=== PATIENT | female | born 1980 | race Caucasian/White ===

== ENCOUNTER 2017-02-22 18:15 | Emergency (ER) | payer OTHER, MEDICAID ==
[2017-02-22 18:20] VITALS: BP 140/105; PULSE 95; RESP 18; TEMP 98.1; O2SAT 96
[2017-02-22] MEDS ORDERED: LORazepam 1 MG TAB PO ONE (18:33)
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
== END 2017-02-22 19:07 | disposition home or self-care (01) ==
LOC: EEVIPCON 18:15
DX: Z76.0 Encounter for issue of repeat prescription (principal); F17.200 Nicotine dependence, unspecified, uncomplicated

== ENCOUNTER 2017-03-01 14:48 | Emergency (ER) | payer OTHER, MEDICAID ==
[2017-03-01 15:28] LABS: % IMMATURE GRANULYOCYTES 0.4 % (0.0-1.1); ABSOLUTE IMMATURE GRANULOCYTES 0.03 10^3/uL (0.00-0.10); ADD DIFF? NO; ADD MORPH? NO; ADD SCAN? NO; ATYPICAL LYMPHOCYTE FLAG 10 (0-99); FRAGMENT RBC FLAG 0 (0-99); HEMATOCRIT 42.6 % (38.0-47.0); HEMOGLOBIN 15.2 g/dL (12.6-16.3); LEFT SHIFT FLG 0 (0-99); LIPEMIA HEMOLYSIS FLAG 90 (0-99); MEAN CELL HEMOGLOBIN 31.2 pg (27.9-34.1); MEAN CELL HEMOGLOBIN CONCENTR. 35.7 g/dL (32.4-36.7); MEAN CELL VOLUME 87.5 fL (81.5-99.8); MEAN PLATELET VOLUME 10.1 fL (8.7-11.7); PLATELET CLUMPS FLAG 0 (0-99); PLATELET COUNT 287 10^3/uL (150-400); RED BLOOD CELL COUNT 4.87 10^6/uL (4.18-5.33); RED CELL DISTRIBUTION WIDTH 13.2 % (11.5-15.2)
[2017-03-01 15:32] LABS: ANION GAP 12 mEq/L (8-16); CALCIUM 9.8 mg/dL (8.5-10.4); CARBON DIOXIDE 24 mEq/l (22-31); CHLORIDE 101 mEq/L (97-110); CREATININE 0.7 mg/dL (0.6-1.0); ETHANOL SERUM < 10 mg/dL (0-10); GLOMERULAR FILTRATION RATE > 60; GLUCOSE 77 mg/dL (70-100); POTASSIUM 4.8 mEq/L (3.5-5.2); SODIUM 137 mEq/L (134-144)
--- NOTE | 2017-03-01 15:54 | EDPHY ---
General - History Smoking Status: Current every day smoker Narrative: CHIEF COMPLAINT: Left groin cyst HISTORY OF PRESENT ILLNESS: Patient is here with complaint of left groin cyst. She says that she developed this while she was in being treated for bipolar episode last week. She says she was discharged home with Depakote but soft taken because she did want to. She says that she has an appointment with her psychiatrist tomorrow to discuss this. She denies any thoughts of suicide or self-harm. She denies any thoughts of homicidal ideation. She feels that her heart as enlarged because these the wrong blood pressure cuff on her at [place]. She also feels that she was kept the wrong fully and too long. She feels that the cyst in the left groin has been there for a week and a half. It is not changed. It is minimally painful. Has not drained. No other associated complaints or modifying factors. REVIEW OF SYSTEMS: Ten systems reviewed and are negative unless otherwise noted in the HPI PERTINENT MEDICAL HISTORY: Bipolar disorder EXAMINATION General Appearance: Alert, no distress, unkempt Head: normocephalic, atraumatic Eyes: Pupils equal and round, no conjunctival pallor or injection. EOMs intact ENT, Mouth: Mucous membranes moist. Uvula midline. Neck: Normal inspection, supple, non-tender Respiratory: Lungs are clear to auscultation Cardiovascular: Regular rate and rhythm. No murmur. Gastrointestinal: Abdomen is soft and nontender Back: non-tender, no bony abnormalities Neurological: A&O, nonfocal, strength symmetric. Normal gait. Skin: Warm and dry, no rash Extremities: Nontender, no pedal edema Psychiatric: Pressured speech. Flight of ideas. Difficulty focusing. No suicide or homicide ideation. She does have delusions of physical abnormalities of her heart, feeling that her heart is enlarged because of blood pressure cup at [place]. DIFFERENTIAL DIAGNOSES: Including but not limited to bipolar andre, manic episode, schizophrenia, delusional disorder, folliculitis, abscess MDM: 3:30 p.m. Patient has history of bipolar and exhibiting manic behavior. She has flight of ideas, she has pressured speech, she is also exhibiting delusions of an enlarged heart caused by her blood pressure cuff. She has difficulty staying focused on task with her conversation. She happens also have a folliculitis in the left inguinal fall without any palpable fluctuance or abscess that needs to be incised and drained. I feel that she is a danger to herself with her andre as she has been off of her Depakote for 10 days. Thus I did complete an M1 form was signed by Dr. Hernández at this time. I have also discussed the case with her psychiatrist Dr. Lopez. I would like patient to be evaluated by s her psychiatrist Dr.ocial sanchez prior to discharge home. Should she be cleared, she has an appointment with her psychiatrist Dr. Lopez tomorrow. 5:00 p.m. I have discussed the case with the hand the patient over to Dr. Hernández. Please see his note for final disposition. She is currently medically cleared and awaiting psychiatric evaluation. SUPERVISION: Patient was evaluated in conjunction with the supervising physician. Please see their note for details. (Scott Smith) Medical Decision Makin: I assumed care of this patient at shift change from ADRI Smith. Patient is awaiting evaluation by [facility]. 2114: [facility] evaluated patient and do not believe she warrants inpatient stay. She will be discharged with diagnosis of folliculitis and recommendation to follow up with out patient mental health resources as provided by [facility]. Return precautions given. (Gigi Hernández) - Objective Vital Signs: Initial Vital Signs Temperature (C) 37.2 C 03/01/17 14:53 Heart Rate 88 03/01/17 14:53 Respiratory Rate 18 03/01/17 14:53 Blood Pressure 129/82 H 03/01/17 14:53 O2 Sat (%) 96 03/01/17 14:53 O2 Delivery Mode Room Air Allergies/Adverse Reactions: No Known Allergies Allergy (Unverified 12/19/14 14:28) Home Medications: Medication Instructions Recorded Ondansetron Odt [Zofran Odt 4 mg 4 mg PO Q4 PRN #6 tab 12/19/14 (RX)] Ativan 02/22/17 Depakote 02/22/17 Divalproex ER [Depakote ER 500 MG 500 mg PO DAILY 4 Days 02/22/17 (*)] Divalproex ER [Depakote ER 500 MG 750 mg PO HS 4 Days 02/22/17 (*)] Eszopiclone [Lunesta] 3 mg PO HS 4 Days 02/22/17 GABAPENTIN 02/22/17 Gabapentin 600 mg PO HS 4 Days 02/22/17 Lunesta 02/22/17 Sulfamethox/Tmp 800/160 mg 1 tab PO BID #14 tab 03/01/17 [Bactrim Ds] Laboratory Results: Laboratory Results 03/01/17 15:00 03/01/17 15:00 03/01/17 03/01/17 03/01/17 15:02 15:02 15:00 WBC RBC Hgb Hct MCV MCH MCHC RDW Plt Count MPV Neut % (Auto) Lymph % (Auto) [place] % (Auto) Eos % (Auto) Baso % (Auto) Nucleat RBC Rel Count Absolute Neuts (auto) Absolute Lymphs (auto) Absolute Monos (auto) Absolute Eos (auto) Absolute Basos (auto) Absolute Nucleated RBC Immature Gran % Immature Gran # Sodium Potassium Chloride Carbon Dioxide Anion Gap BUN Creatinine Estimated GFR Glucose Calcium Beta HCG, Qual NEGATIVE Salicylates < 1.0 mg/dL L mg/dL (2.0-20.0) Urine Opiates Screen NEGATIVE (NEGATIVE) Acetaminophen < 10 mcg/mL L mcg/mL (10.0-30.0) Urine Barbiturates NEGATIVE (NEGATIVE) Ur Phencyclidine Scrn NEGATIVE (NEGATIVE) Ur Amphetamine Screen NEGATIVE (NEGATIVE) U Benzodiazepines Scrn NEGATIVE (NEGATIVE) Urine Cocaine Screen NEGATIVE (NEGATIVE) U Marijuana (THC) Screen NEGATIVE (NEGATIVE) Ethyl Alcohol 03/01/17 03/01/17 15:00 15:00 WBC 8.31 10^3/uL 10^3/uL (3.80-9.50) RBC 4.87 10^6/uL 10^6/uL (4.18-5.33) Hgb 15.2 g/dL g/dL (12.6-16.3) Hct 42.6 % % (38.0-47.0) MCV 87.5 fL fL (81.5-99.8) MCH 31.2 pg pg (27.9-34.1) MCHC 35.7 g/dL g/dL (32.4-36.7) RDW 13.2 % % (11.5-15.2) Plt Count 287 10^3/uL 10^3/uL (150-400) MPV 10.1 fL fL (8.7-11.7) Neut % (Auto) 69.1 % % (39.3-74.2) Lymph % (Auto) 16.7 % % (15.0-45.0) [place] % (Auto) 11.6 % % (4.5-13.0) Eos % (Auto) 1.6 % % (0.6-7.6) Baso % (Auto) 0.6 % % (0.3-1.7) Nucleat RBC Rel Count 0.0 % % (0.0-0.2) Absolute Neuts (auto) 5.75 10^3/uL 10^3/uL (1.70-6.50) Absolute Lymphs (auto) 1.39 10^3/uL 10^3/uL (1.00-3.00) Absolute Monos (auto) 0.96 10^3/uL H 10^3/uL (0.30-0.80) Absolute Eos (auto) 0.13 10^3/uL 10^3/uL (0.03-0.40) Absolute Basos (auto) 0.05 10^3/uL 10^3/uL (0.02-0.10) Absolute Nucleated RBC 0.00 10^3/uL 10^3/uL (0-0.01) Immature Gran % 0.4 % % (0.0-1.1) Immature Gran # 0.03 10^3/uL 10^3/uL (0.00-0.10) Sodium 137 mEq/L mEq/L (134-144) Potassium 4.8 mEq/L mEq/L (3.5-5.2) Chloride 101 mEq/L mEq/L (97-110) Carbon Dioxide 24 mEq/l mEq/l (22-31) Anion Gap 12 mEq/L mEq/L (8-16) BUN 12 mg/dL mg/dL (7-23) Creatinine 0.7 mg/dL mg/dL (0.6-1.0) Estimated GFR > 60 Glucose 77 mg/dL mg/dL (70-100) Calcium 9.8 mg/dL mg/dL (8.5-10.4) Beta HCG, Qual Salicylates Urine Opiates Screen Acetaminophen Urine Barbiturates Ur Phencyclidine Scrn Ur Amphetamine Screen U Benzodiazepines Scrn Urine Cocaine Screen U Marijuana (THC) Screen Ethyl Alcohol < 10 mg/dL mg/dL (0-10) Medications Given: Discontinued Medications Trimethoprim/Sulfamethoxazole (Bactrim Ds) 2 ea PO EDNOW ONE PRN Reason: Protocol Stop: 03/01/17 15:56 Last Admin: 03/01/17 16:29 Dose: 2 ea Departure - Departure Disposition: Home, Routine, Self-Care Clinical Impression: Bipolar I disorder with andre, Folliculitis Condition: Good Instructions: Folliculitis (ED), Bipolar Disorder (ED) Additional Instructions: 1. Use Bactrim as prescribed for folliculitis. Be sure to complete the entire prescription. 2. Follow up with the resources provided by mental health services. 3. Return to the ED for racing thought, thoughts of self harm, other worsening of condition. Referrals: [facility] [Clinic] - As per Instructions Prescriptions: Sulfamethox/Tmp 800/160 mg [Bactrim Ds] 1 tab PO BID #14 tab
[2017-03-01] MEDS ORDERED: SULFAMETHOX/TMP 800/160 MG 1 TAB PO ONE (15:55)
[2017-03-01 16:02] LABS: SALICYLATE < 1.0 mg/dL (2.0-20.0)
[2017-03-01 17:12] VITALS: RESP 16
[2017-03-01 21:28] VITALS: BP 124/80; PULSE 82; TEMP 98.2; O2SAT 96
[2017-03-01] MEDS ORDERED: DIVALPROEX NA 500 MG TAB PO ONE (21:55)
== END 2017-03-01 22:23 | disposition home or self-care (01) ==
LOC: EDUNIT# → EEVIPCON 14:48
DX: L73.9 Follicular disorder, unspecified (principal); F31.9 Bipolar disorder, unspecified; F17.200 Nicotine dependence, unspecified, uncomplicated
CPT/HCPCS: 80305; G0480

== ENCOUNTER 2017-04-19 21:31 | Inpatient (IN) | payer OTHER, MEDICAID ==
--- NOTE | 2017-04-19 21:58 | EDPHY ---
H & P Stated Complaint: Court ordered meds - Personal History Current Tetanus/Diphtheria Vaccine: Yes Current Tetanus Diphtheria and Acellular Pertussis (TDAP): Yes - Medical/Surgical History Hx Asthma: Yes Hx Chronic Respiratory Disease: No Hx Diabetes: No Hx Cardiac Disease: No Hx Renal Disease: No Hx Cirrhosis: No Hx Alcoholism: Yes Hx HIV/AIDS: No Hx Splenectomy or Spleen Trauma: No Other PMH: bipolar - Social History Smoking Status: Current every day smoker Time Seen by Provider: 04/19/17 21:57 Constitutional: Initial Vital Signs Temperature (C) 36.9 C 04/19/17 21:50 Heart Rate 110 H 04/19/17 21:50 Respiratory Rate 16 04/19/17 21:50 Blood Pressure 148/101 H 04/19/17 21:50 O2 Sat (%) 94 04/19/17 21:50 O2 Delivery Mode Room Air Allergies/Adverse Reactions: No Known Allergies Allergy (Unverified 04/19/17 21:41) Home Medications: Medication Instructions Recorded Eszopiclone [Lunesta] 3 mg PO HS 02/22/17 Gabapentin [Neurontin 300 MG (*)] 600 mg PO BID 02/22/17 Gabapentin [Neurontin 300 MG (*)] 600 mg PO DAILY@16 PRN 02/22/17 risperiDONE [Risperdal 1mg (*)] 2 mg PO DAILY 02/22/17 Divalproex ER [Depakote ER 500 MG 250 mg PO DAILY 04/20/17 (*)] Divalproex ER [Depakote ER 500 MG 500 mg PO HS 04/20/17 (*)] [place] Carbonate [[place] 900 mg PO HS 04/20/17 Carbonate Tab 300 mg (*)] Melatonin [Melatonin 3 MG (*)] 9 mg PO HS 04/20/17 Multivitamins [Multivitamin (*)] 1 each PO DAILY 04/20/17 Medical Decision Making ED Course/Re-evaluation: CHIEF COMPLAINT: Psychiatric evaluation HISTORY OF PRESENT ILLNESS: 36-year-old female who is court ordered to take psychiatric medicine. According to her mother who called the police she has been acting crazy and not taking her medicine. The patient denies this and states she is taking her medicine. She denies any drug or alcohol abuse. She denies any trauma. REVIEW OF SYSTEMS: A 10 point review of systems was performed and is negative with the exception of the elements mentioned in the history of present illness. PHYSICAL EXAM: General Appearance: Alert, well hydrated, appropriate, and non-toxic appearing. Head: Atraumatic without scalp tenderness or obvious injury Eyes: Pupils equal, round, reactive to light and accommodation, EOMI, no trauma , no injection. Ears: Clear bilaterally, no perforation, normal landmarks Nose: Atraumatic, no rhinorrhea, clear. Throat: There is no erythema or exudates, no lesions, normal tonsils, mucus membranes moist. Neck: Supple, 2+ carotid upstroke, nontender, no lymphadenopathy. Respiratory: No retractions, no distress, no wheezes, and no accessory muscle use. Lungs are clear to auscultation bilaterally. Cardiovascular: Regular rate and rhythm, no murmurs, rubs, or gallops. Bilateral carotid, radial, dorsalis pedis, and posterior tibial pulses intact. Good capillary refill all extremities. Gastrointestinal: Abdomen is soft, nontender, non-distended, no masses, no rebound, no guarding, no peritoneal signs. Musculoskeletal: Normal active ROM of all extremities, atraumatic. Neurological: Alert, appropriate, and interactive. The patient has normal DTRs and non-focal cranial nerves, motor, sensory, and cerebellar exam. Skin: No rashes, good turgor, no nodules on palpation. Past medical history: Psychiatric history Past surgical history: noncontributory Family history: noncontributory Social history: single, uses tobacco, denies alcohol or drug use, unemployed DIFFERENTIAL DIAGNOSIS: The differential diagnosis for the patient's depression included but was not limited to functional and major depression, situational depression, medication side effect, drugs, and alcohol abuse. MEDICAL DECISION MAKING: Patient is in no acute distress and is hemodynamically stable. We are awaiting psychiatric team's evaluation. Patient has known history of psychiatric disorders and is here for evaluation. (Gigi Hernández) 5:20 a.m.- The patient has been stable during my shift. She has been accepted to [address] [place] [address] Leone. She can go there later this morning. I have completed the EMTALA form. At change of shift at 7:00 a.m., the patient will be signed out to the oncoming provider Dr. Lemus. (Cristina Ibarra) - Data Points Laboratory Results: Laboratory Results 04/19/17 21:50 04/19/17 21:50 Medications Given: Discontinued Medications Divalproex Sodium (Depakote) 500 mg PO EDNOW ONE Stop: 04/20/17 03:40 Last Admin: 04/20/17 03:55 Dose: 500 mg Divalproex Sodium (Depakote) 250 mg PO EDNOW ONE Stop: 04/20/17 09:07 Last Admin: 04/20/17 09:34 Dose: Not Given Divalproex Sodium (Depakote) 250 mg PO EDNOW ONE Stop: 04/20/17 09:31 Last Admin: 04/20/17 10:07 Dose: 250 mg Divalproex Sodium (Depakote) 250 mg PO BID [facility] Stop: 10/17/17 20:59 Last Admin: 04/20/17 22:32 Dose: Not Given Divalproex Sodium (Depakote) 250 mg PO DAILY [facility] Stop: 10/17/17 08:59 Last Admin: 04/21/17 00:41 Dose: Not Given Gabapentin (Neurontin) 600 mg PO EDNOW ONE Stop: 04/20/17 03:40 Last Admin: 04/20/17 03:53 Dose: 600 mg Gabapentin (Neurontin) 600 mg PO EDNOW ONE Stop: 04/20/17 09:08 Last Admin: 04/20/17 09:34 Dose: 600 mg Gabapentin (Neurontin) 600 mg PO EDNOW ONE Stop: 04/20/17 09:31 Last Admin: 04/20/17 09:35 Dose: Not Given Lorazepam (Ativan) 1 mg PO EDNOW ONE Stop: 04/20/17 03:40 Last Admin: 04/20/17 03:53 Dose: 1 mg Departure - Departure Disposition: [facility] IP Clinical Impression: Acute psychosis Condition: Fair
[2017-04-19 22:09] LABS: % IMMATURE GRANULYOCYTES 0.4 % (0.0-1.1); ABSOLUTE IMMATURE GRANULOCYTES 0.03 10^3/uL (0.00-0.10); ADD DIFF? NO; ADD MORPH? NO; ADD SCAN? NO; ATYPICAL LYMPHOCYTE FLAG 0 (0-99); FRAGMENT RBC FLAG 0 (0-99); HEMATOCRIT 43.5 % (38.0-47.0); LEFT SHIFT FLG 0 (0-99); LIPEMIA HEMOLYSIS FLAG 90 (0-99); MEAN CELL HEMOGLOBIN 31.1 pg (27.9-34.1); MEAN CELL HEMOGLOBIN CONCENTR. 34.5 g/dL (32.4-36.7); MEAN CELL VOLUME 90.2 fL (81.5-99.8); MEAN PLATELET VOLUME 9.4 fL (8.7-11.7); PLATELET CLUMPS FLAG 0 (0-99); PLATELET COUNT 276 10^3/uL (150-400); RED BLOOD CELL COUNT 4.82 10^6/uL (4.18-5.33); RED CELL DISTRIBUTION WIDTH 13.3 % (11.5-15.2)
[2017-04-19 22:37] LABS: ANION GAP 9 mEq/L (8-16); CALCIUM 9.5 mg/dL (8.5-10.4); CARBON DIOXIDE 24 mEq/l (22-31); CHLORIDE 101 mEq/L (97-110); CREATININE 0.8 mg/dL (0.6-1.0); GLOMERULAR FILTRATION RATE > 60; GLUCOSE 85 mg/dL (70-100); POTASSIUM 4.6 mEq/L (3.5-5.2); SODIUM 134 mEq/L (134-144)
[2017-04-19 22:39] LABS: ETHANOL SERUM < 10 mg/dL (0-10); SALICYLATE < 1.0 mg/dL (2.0-20.0)
[2017-04-20] MEDS ORDERED: GABAPENTIN 100 MG CAP PO ONE ×2 (03:39→09:07)
[2017-04-20] MEDS ORDERED: LORazepam 1 MG TAB PO ONE (03:39)
[2017-04-20] MEDS ORDERED: DIVALPROEX NA 500 MG TAB PO ONE ×2 (03:39→09:06)
[2017-04-20] MEDS ORDERED: DIVALPROEX NA 250 MG TAB PO SCH ×2 (09:00→21:00)
[2017-04-20] MEDS ORDERED: DIVALPROEX NA 250 MG TAB PO ONE (09:30)
[2017-04-20] MEDS ORDERED: GABAPENTIN 300 MG CAP PO ONE (09:30)
[2017-04-20] MEDS ORDERED: MAG HYDROX/AL HYDROX/SIMETH 30 ML UDCUP PO PRN (14:56)
[2017-04-20] MEDS ORDERED: MAGNESIUM HYDROXIDE 30 ML UDCUP PO PRN (14:57)
[2017-04-20] MEDS: ACETAMINOPHEN 325 MG TAB PO PRN (15:14)
[2017-04-20] MEDS: NICOTINE POLACRILEX 2 MG GUM B PRN ×2 (15:15→17:57)
--- NOTE | 2017-04-20 20:27 | BCON ---
[f rep st] BEHAVIORAL HEALTH CONSULTATION INTERNAL MEDICINE CONSULTATION DATE OF CONSULTATION: 04/20/2017 REFERRING PHYSICIAN: Patria Leone MD REASON FOR CONSULTATION: Medical clearance for inpatient behavioral health stay. HISTORY OF PRESENT ILLNESS: The patient came to the emergency department yesterday after her mother called the police reporting that she had been acting crazy and was not taking her medication. She was on court-ordered medications for bipolar disorder. The patient denied that she had been noncompliant. She was evaluated by the mental health team and admitted for further psychiatric care. She currently is without any acute medical complaints. She reports she is trying to stay awake and drinking coffee in order that she can sleep better tonight and she requested nicotine gum. PAST MEDICAL HISTORY: Bipolar disorder. She denies any other medical history or surgical history. MEDICATIONS: Prior to admission. 1. Divalproex 500 mg at h.s. and 250 mg in the morning. 2. Multivitamin q. day. 3. Melatonin 9 mg p.o. q.h.s. 4. Risperidone 2 mg p.o. q. day. 5. [place] 900 mg p.o. q.h.s. 6. Gabapentin 600 mg p.o. b.i.d. and 600 mg p.o. q.1600 p.r.n. 7. Eszopiclone 3 mg p.o. q.h.s. ALLERGIES: No known allergies. SOCIAL HISTORY: She reports that she lives alone and works as a filing writer. She is a tobacco smoker, and she has a dog. FAMILY HISTORY: Noncontributory. REVIEW OF SYSTEMS: A 10-point Review of Systems was conducted and was negative. PHYSICAL EXAM: VITAL SIGNS: Her blood pressure is 123/75, heart rate is 93, respiratory rate is 12, oxygen saturation is 96% on room air, temperature is 36.8 degrees centigrade. Her weight is 70.3 kg for a body mass index of 22.9. GENERAL: This is a well-nourished, well-developed woman sitting in a chair in the dining room, cooperative and in no acute distress; however, she appears distracted and nervous. HEENT: Extraocular movements are intact. Pupils are equal, round, reactive to light. Mucous membranes are moist. Dentition is in good condition. NECK: Supple. HEART: There is a regular rate and rhythm with no murmurs, rubs, or gallops. LUNGS: Clear to auscultation bilaterally. ABDOMEN: Soft, nontender, nondistended with normoactive bowel sounds. EXTREMITIES: There is no cyanosis, clubbing, or edema. NEUROLOGIC: She is alert and oriented x3. Cranial nerves 2-12 are grossly intact. There is no focal weakness, and sensation is intact to light touch. LABORATORY STUDIES: From the emergency department, CBC was completely within normal limits. Serum chemistry revealed normal renal function and electrolytes. Beta hCG was negative for . Toxicology screen in the serum was negative for salicylates, acetaminophen, or ethyl alcohol. Her valproic acid level was 23, and toxicology screen in the urine was non-negative for benzodiazepines but was otherwise negative for substances of abuse. ASSESSMENT/RECOMMENDATIONS: 1. Bipolar disorder with likely medical noncompliance, pending further evaluation and management per Psychiatry and the mental health team. 2. Tobacco dependence syndrome. Nicotine gum is prescribed for her. She was advised to quit smoking. I see no medical contraindications to the patient's continued stay in the inpatient behavioral health unit or to any psychiatric medications or procedures. Thank you very much for including me in the care of this patient, and please do not hesitate to contact me or the hospitalist service should there be need for further medical evaluation. /[id number]/MODL MTDD
[2017-04-20] MEDS ORDERED: GABAPENTIN 400 MG CAP PO SCH (21:00)
[2017-04-20] MEDS: risperiDONE 2 MG TAB PO SCH (21:11)
[2017-04-20] MEDS: GABAPENTIN 300 MG CAP PO SCH (21:12)
[2017-04-20] MEDS: DIVALPROEX NA 500 MG TAB PO SCH (21:45)
[2017-04-20] MEDS: ZOLPIDEM TARTRATE 5 MG TAB PO PRN (21:46)
[2017-04-21] MEDS: ACETAMINOPHEN 325 MG TAB PO PRN (06:28)
[2017-04-21] MEDS: NICOTINE POLACRILEX 2 MG GUM B PRN ×7 (06:28→20:08)
[2017-04-21] MEDS: DIVALPROEX NA 250 MG TAB PO SCH (08:53)
[2017-04-21] MEDS: GABAPENTIN 300 MG CAP PO SCH ×2 (08:53→20:52)
[2017-04-21] MEDS: risperiDONE 2 MG TAB PO SCH (20:53)
[2017-04-21] MEDS: DIVALPROEX NA 500 MG TAB PO SCH (20:53)
[2017-04-21] MEDS: ZOLPIDEM TARTRATE 5 MG TAB PO PRN (21:52)
[2017-04-22] MEDS: LORazepam 0.5 MG TAB PO PRN (02:49)
--- NOTE | 2017-04-22 06:58 | SOAPPROG ---
SOAP Progress Note Assessment/Plan: Assessment: Plan: 04/22/17 DAY ' UPDATE/EXAM: Objective: Vital Signs Temp Pulse Resp BP Pulse Ox 36.3 C 66 16 119/67 97 04/22/17 06:08 04/22/17 06:08 04/22/17 06:08 04/22/17 06:08 04/22/17 06:08 ICD10 Worksheet Patient Problems: Problems Problem Status Onset Acute psychosis Acute
[2017-04-22] MEDS: NICOTINE POLACRILEX 2 MG GUM B PRN ×5 (07:44→15:08)
[2017-04-22] MEDS: DIVALPROEX NA 250 MG TAB PO SCH (08:39)
[2017-04-22] MEDS: GABAPENTIN 300 MG CAP PO SCH ×2 (08:39→21:19)
--- NOTE | 2017-04-22 11:26 | SOAPPROG ---
SOAP Progress Note Assessment/Plan: Assessment: Plan: 04/22/17 10:15 DAY ' UPDATE/EXAM: Nursing reports pt slept well but remains with manic residual - changing clothing multiple times, tangential, POS; not overtly psychotic/ on direct exam pt is more organized, less pressured, still tangential and distractible, guarded with IOR; softer stance toward mother and would like mother to bring in more clothes; understands that I will be titrating Depakote up on notch today. ASSESSMENT/PLAN: improving b/w residual manic and psychotic elements/ will obtain DC level 04/24 and increase DK dosing to 1250 mg qd, will consider increasing Risperdal tomorrow; no change in management plan Objective: Vital Signs Temp Pulse Resp BP Pulse Ox 36.3 C 66 16 119/67 97 04/22/17 06:08 04/22/17 06:08 04/22/17 06:08 04/22/17 06:08 04/22/17 06:08 ICD10 Worksheet Patient Problems: Problems Problem Status Onset Acute psychosis Acute
[2017-04-22] MEDS: NICOTINE 21 MG/24 HR PATCH TD SCH (15:54)
[2017-04-22] MEDS: DIVALPROEX ER 250 MG TAB PO SCH (21:19)
[2017-04-22] MEDS: risperiDONE 2 MG TAB PO SCH (21:19)
[2017-04-22] MEDS: DIVALPROEX NA 500 MG TAB PO SCH (21:19)
[2017-04-23] MEDS: LORazepam 0.5 MG TAB PO PRN ×3 (02:13→15:11)
--- NOTE | 2017-04-23 07:48 | SOAPPROG ---
SOAP Progress Note Assessment/Plan: Assessment: Plan: 04/22/17 10:15 DAY ' UPDATE/EXAM: Nursing reports pt slept well but remains with manic residual - changing clothing multiple times, tangential, POS; not overtly psychotic/ on direct exam pt is more organized, less pressured, still tangential and distractible, guarded with IOR; softer stance toward mother and would like mother to bring in more clothes; understands that I will be titrating Depakote up onE notch today. ASSESSMENT/PLAN: improving b/w residual manic and psychotic elements/ will obtain DC level 04/24 and increase DK dosing to 1250 mg qd, will consider increasing Risperdal tomorrow; no change in management plan 04/23/17 DAY ' UDATE/PLAN: Objective: Vital Signs Temp Pulse Resp BP Pulse Ox 36.4 C 101 H 15 116/64 96 04/23/17 06:00 04/23/17 06:00 04/23/17 06:00 04/23/17 06:00 04/23/17 06:00 ICD10 Worksheet Patient Problems: Problems Problem Status Onset Acute psychosis Acute
[2017-04-23] MEDS: NICOTINE 21 MG/24 HR PATCH TD SCH (08:21)
[2017-04-23] MEDS: DIVALPROEX NA 250 MG TAB PO SCH (08:22)
[2017-04-23] MEDS: ACETAMINOPHEN 325 MG TAB PO PRN (08:27)
[2017-04-23] MEDS: GABAPENTIN 300 MG CAP PO SCH ×2 (09:41→20:55)
--- NOTE | 2017-04-23 12:06 | SOAPPROG ---
SOAP Progress Note Assessment/Plan: Assessment: Plan: 04/22/17 10:15 DAY ' UPDATE/EXAM: Nursing reports pt slept well but remains with manic residual - changing clothing multiple times, tangential, POS; not overtly psychotic/ on direct exam pt is more organized, less pressured, still tangential and distractible, guarded with IOR; softer stance toward mother and would like mother to bring in more clothes; understands that I will be titrating Depakote up onE notch today. ASSESSMENT/PLAN: improving b/w residual manic and psychotic elements/ will obtain DC level 04/24 and increase DK dosing to 1250 mg qd, will consider increasing Risperdal tomorrow; no change in management plan 04/23/17 10:00 DAY UPDATE/EXAM: Nursing reports pt slept 4 hours continues to evidence prosper/ paranoid elements observed- irritable and at times verbally abusive, POS, multiple clothes changes,, guarded and kelby IOR; on direct exam indeed these elements are present altho pt tolerates session well, accepts med changes as referenced; and will m belle efforts to mobilize out of room more Objective: Vital Signs Temp Pulse Resp BP Pulse Ox 36.4 C 101 H 15 116/64 96 04/23/17 06:00 04/23/17 06:00 04/23/17 06:00 04/23/17 06:00 04/23/17 06:00 ICD10 Worksheet Patient Problems: Problems Problem Status Onset Acute psychosis Acute
--- NOTE | 2017-04-23 12:08 | SOAPPROG ---
SOAP Progress Note Assessment/Plan: Assessment: Plan: 04/22/17 10:15 DAY ' UPDATE/EXAM: Nursing reports pt slept well but remains with manic residual - changing clothing multiple times, tangential, POS; not overtly psychotic/ on direct exam pt is more organized, less pressured, still tangential and distractible, guarded with IOR; softer stance toward mother and would like mother to bring in more clothes; understands that I will be titrating Depakote up onE notch today. ASSESSMENT/PLAN: improving b/w residual manic and psychotic elements/ will obtain DC level 04/24 and increase DK dosing to 1250 mg qd, will consider increasing Risperdal tomorrow; no change in management plan 04/23/17 10:00 DAY ' UPDATE/EXAM: Nursing reports pt slept 4 hours continues to evidence prosper/ paranoid elements observed- irritable and at times verbally abusive, POS, multiple clothes changes,, guarded and kelby IOR; on direct exam indeed these elements are present altho pt tolerates session well, accepts med changes as referenced; and will m belle efforts to mobilize out of room more ASSESSMENT/PLAN: Residual element of manic-psychosis but early phase improvement / increase Risperdal to 4 mg hs, add Trazodone 50 mg hs; management plan d/w Nursing in Rounds . Objective: Vital Signs Temp Pulse Resp BP Pulse Ox 36.4 C 101 H 15 116/64 96 04/23/17 06:00 04/23/17 06:00 04/23/17 06:00 04/23/17 06:00 04/23/17 06:00 ICD10 Worksheet Patient Problems: Problems Problem Status Onset Acute psychosis Acute
[2017-04-23] MEDS: MULTIVITAMINS 1 EACH TAB PO SCH (12:31)
[2017-04-23] MEDS: NICOTINE POLACRILEX 2 MG GUM B PRN ×2 (12:38→17:07)
[2017-04-23] MEDS: ASCORBIC ACID 500 MG TAB PO SCH (12:47)
[2017-04-23] MEDS ORDERED: NICOTINE 21 MG/24 HR PATCH TD ONE (15:15)
[2017-04-23] MEDS: DIVALPROEX ER 250 MG TAB PO SCH (17:55)
[2017-04-23] MEDS: DIVALPROEX NA 500 MG TAB PO SCH (17:56)
[2017-04-23] MEDS: risperiDONE 2 MG TAB PO SCH (20:55)
[2017-04-23] MEDS: DOXEPIN HCL 25 MG CAP PO SCH (20:55)
--- NOTE | 2017-04-24 06:23 | SOAPPROG ---
SOAP Progress Note Assessment/Plan: Assessment: Plan: 04/22/17 10:15 DAY UPDATE/EXAM: Nursing reports pt slept well but remains with manic residual - changing clothing multiple times, tangential, POS; not overtly psychotic/ on direct exam pt is more organized, less pressured, still tangential and distractible, guarded with IOR; softer stance toward mother and would like mother to bring in more clothes; understands that I will be titrating Depakote up one notch today. ASSESSMENT/PLAN: improving b/w residual manic and psychotic elements/ will obtain DC level 04/24 and increase DK dosing to 1250 mg qd, will consider increasing Risperdal tomorrow; no change in management plan 04/23/17 10:00 DAY UPDATE/EXAM: Nursing reports pt slept 4 hours continues to evidence manic/ paranoid elements observed- irritable and at times verbally abusive, POS, multiple clothes changes,, guarded and kelby IOR; on direct exam indeed these elements are present altho pt tolerates session well, accepts med changes as referenced; and will m belle efforts to mobilize out of room more ASSESSMENT/PLAN: Residual element of manic-psychosis but early phase improvement / increase Risperdal to 4 mg hs, add Trazodone 50 mg hs; management plan d/w Nursing in Rounds . 04/24/17 DAY UPDATE/EXAM Objective: Vital Signs Temp Pulse Resp BP Pulse Ox 36.4 C 101 H 15 116/64 96 04/23/17 06:00 04/23/17 06:00 04/23/17 06:00 04/23/17 06:00 04/23/17 06:00 ICD10 Worksheet Patient Problems: Problems Problem Status Onset Acute psychosis Acute
[2017-04-24] MEDS: DIVALPROEX NA 250 MG TAB PO SCH (09:18)
[2017-04-24] MEDS: ASCORBIC ACID 500 MG TAB PO SCH (09:19)
[2017-04-24] MEDS: NICOTINE POLACRILEX 2 MG GUM B PRN ×3 (09:19→12:59)
[2017-04-24] MEDS: GABAPENTIN 300 MG CAP PO SCH ×2 (10:16→19:46)
[2017-04-24] MEDS: NICOTINE 21 MG/24 HR PATCH TD SCH (10:17)
[2017-04-24] MEDS: LORazepam 0.5 MG TAB PO PRN (10:46)
[2017-04-24] MEDS: MULTIVITAMINS 1 EACH TAB PO SCH (10:46)
[2017-04-24] MEDS ORDERED: BACITRACIN OINTMENT 1 PACKET TP ONE (12:57)
--- NOTE | 2017-04-24 14:53 | BAPA ---
[f rep st] ADMISSION PSYCHIATRIC ASSESSMENT PATIENT IDENTIFICATION: The patient presents as a 36-year-old, single, white female who has a chronic symptom and treatment career associated with the diagnosis of Bipolar Disorder-type 1; the patient lives alone, is unemployed and supported on an [facility] stipend. She is followed as a psychiatric outpatient in the community by her private psychiatrist, Dr. Sotelo. She is admitted to [address] [place] [address] on an M1 hold for complaints of an acute manic/psychotic decompensation following clearance in the [facility] ER. HISTORY OF PRESENT ILLNESS: The patient has apparently been unstable and evidencing both affective and psychotic instability for a period of 3+ months. This apparently has been triggered by interactive conflicts with a boyfriend with whom she has recently broken up, as well as in the dyadic relationship with her mother. The patient was hospitalized at [facility] approximately 2 months ago for a similar acute psychotic decompensation as the current one, associated with a manic/psychotic decompensation. It is unclear what the details of her inpatient treatment course were at [facility]. We do know that in the interim between her discharge from [facility] and this admission she rapidly developed syndromal acuity. We do know the [place] Police were called to her apartment on 2 or 3 occasions over a 2 week period prior to admission. Neighbors complained of the patient's disruptive noise. On one occasion the patient is reported as throwing dishes out of her window on March 31 - . In the few days prior to this admission, the patient had insufficient funds to buy her maintenance medications, which included Depakote ER, Neurontin, Risperdal, and a sleeping medication-Lunesta. It is unclear how effectively the patient had been compliant with the medications prior to the prescriptions running out. The patient's mother became increasingly concerned about the syndromal acuity. On the day of admission, she called 911 after observing her daughter as acutely regressed. The patient was brought by police to the [facility] Emergency Room after obtaining an M3 court ordered psychiatric evaluation. In the emergency room the patient was found to be grandiose, paranoid, and having organized grandiose and persecutory delusions. Speech was pressured, thought process was accelerated and extremely tangential. The patient did cooperate with the medical evaluation, which was unrevealing of any active medical problems. Physical exam was unremarkable. Lab screens included a CBC, beta HCG, chemistries, serum Depakote, toxic screen, and blood alcohol level. The patient's serum Depakote level was 23-indicative of underdosing. Toxic screen was positive for benzodiazepines-likely associated with her prescribed Ativan. TLC saw the patient in psychiatric consultation. Mental status findings as referenced above were affirmed. The patient was deemed gravely disabled, unable to manage safely in the community. She was sent on to [address] [place] [address] for admission on the M3 hold. PSYCHIATRIC HISTORY: Details of psychiatric history including syndromal and treatment history will be clarified in intake phase. The patient was unable to give a reliable history secondary to her acutely regressed mental status. We know the patient has had a chronic symptom and treatment career, was a psychiatric inpatient at [facility] in 2001. There are no known suicide attempts in the patient's history. MEDICAL HISTORY: 1. No active medical problems. 2. S/P asthma-in remission. KNOWN ALLERGIES: The patient has no known medication, food, or environmental allergies. MEDICAL REVIEW OF SYSTEMS: Negative. SUBSTANCE ABUSE HISTORY: Intake data suggests the patient has a remote history of alcohol abuse; the patient denies any current substance problems and does acknowledge alcohol was a problem in the remote past. The patient has attended AA in the past. LEGAL HISTORY: The patient denies any current or past legal issues. PERSONAL HISTORY/FAMILY HISTORY: The patient was born into and raised in her biologic family by both parents for a period of time. The parents did divorce during the patient's childhood, and the patient remained living with her mother , as did her younger sister. There is no known history for abuse or trauma during the patient's childhood or adolescence. The patient was a good student, was an exchange student in high school on 2 occasions in [place] and [place]. She also is a college graduate, obtaining a BS degree in molecular biology. We do know mother is educated through a PhD in Clinical Psychology, and has worked as a clinician. The patient's father is also a PhD either in IT or Science, and is also currently employed. A maternal grandmother is reported as having suffered from Schizophrenia. Family pedigree for psychiatric and/or substance problems will be further clarified in intake phase. MENTAL STATUS EXAM: The patient presents as an adult female looking her stated age. She is relatively well kempt, has a stable gait and station, is cooperative and engaging in the admission session. On direct exam, she exhibits pressured speech, grandiose and persecutory thought process, which includes circumscribed delusions of each type. Her thought process is also highly distractible, tangential, and at times the patient appears to be experiencing thought blocking. She relates throughout the initial session in a guarded manner. She does have partial reality testing, can acknowledge she has been off her medications for an unclear period of time prior to admission. She has an awareness that she is in an acutely unstable state and, indicates knowing she needs to be in the hospital to get help. She states she will cooperate with restabilizing her mental status, using medications effectively to help accomplish this. She also understands and states she will cooperate with the diagnostic workup. She refers to her mother repeatedly as a "sociopath " in an angry tone. She also makes loosely associated comments about a recent conflicted relationship with a boyfriend with whom she has broken up. Session focuses on staging mental status, attempting to clarify a symptom and treatment history, attempting to establish an overview of the patient's lifeline history. The patient currently evidences stable impulse control, poor insight, and poor to fair judgment. FORMULATION: The patient presents as a 36-year-old, single, white female, who lives alone, is followed by a private community psychiatrist. She presents with an extensive and chronic symptom and treatment history. Her present illness includes a 3+ month period of instability of a mixed manic/psychotic decompensation. She has been diagnosed in the past as suffering from a Bipolar Disorder-type 1. Triggers for this regression appeared to be a conflicted relationship with a man the patient had known for over a year, but has recently broken up with. She also appears to have a current conflict with mother, who is supportive to the patient who lives in the patient's catchment area. She was hospitalized at [facility] several months ago, discharged only to regress quickly to a manic/psychotic decompensation of crisis proportions. Mother called 911, requested a court-ordered psychiatric evaluation, and the patient was brought by the [place] Police and EMS on M3 hold to the [facility] Emergency Room. She was cleared medically and psychiatrically, and admitted on the M3 hold to [address] [place] [address]. Treatment will focus on restabilization of mental status, clarifying short term and long term care administrator history, including triggers for this regression. With completed diagnostic workup, the patient will be referred back to her private psychiatrist, and additional treatment services as needed when sufficiently stable. INITIAL TREATMENT PLAN: AXIS I: 1. Bipolar Disorder-type 1: Admitted for complaints of acute manic/psychotic crisis. 2. Alcohol Disorder-remote; reportedly inactive for an extended period prior to this admission. AXIS II: Deferred. AXIS III: 1. No active medical problems below. 2. S/P asthma-currently in remission. AXIS IV: Conflicted relationship with boyfriend with recent break-up; exacerbation of dyadic conflict with the patient's mother; off home medications for an unclear period of time prior to admission. AXIS V: Admission GAF is 35. INITIAL TREATMENT PLAN: 1. Nursing: Complete admission assessment; reinforce compliance with cares and medications; orient the patient to the unit milieu and group program, and encourage participation. 2. Psychiatry: Complete admission assessment; provide daily E/M contacts to complete diagnostic workup, provide reintegrative psychotherapeutic contacts, assess and manage psychoactive medication needs, ally the patient with followup participation and definitive discharge plan. 3. Clinical coordinator: Daily contacts with the patient to expand the database; contact with relevant collaterals; link patient to definitive discharge resources at the time of discharge. 4. Admission medical consultation: Pending. 5. Medications: We will resume home medications including Depakote ER, gabapentin, and Risperdal-dosing is as per admission orders; will not utilize Lunesta, which was her home medication, but provide Trazodone h.s.; we will clarify psychopharmacologic needs on direct exam and by discussing case with the patient's community psychiatrist-Dr. Lopez. 6. Prioritized treatment goals: Stabilize mental status sufficient for discharge; complete diagnostic workup to inform discharge planning; link the patient at discharge to discharge resources; ally the patient with followup treatment. /[id number]/MODL MTDD
--- NOTE | 2017-04-24 15:18 | SOAPPROG ---
SOAP Progress Note Assessment/Plan: Assessment: Plan: 04/22/17 10:15 DAY ' UPDATE/EXAM: Nursing reports pt slept well but remains with manic residual - changing clothing multiple times, tangential, POS; not overtly psychotic/ on direct exam pt is more organized, less pressured, still tangential and distractible, guarded with IOR; softer stance toward mother and would like mother to bring in more clothes; understands that I will be titrating Depakote up one notch today. ASSESSMENT/PLAN: improving b/w residual manic and psychotic elements/ will obtain DC level 04/24 and increase DK dosing to 1250 mg qd, will consider increasing Risperdal tomorrow; no change in management plan 04/23/17 10:00 DAY UPDATE/EXAM: Nursing reports pt slept 4 hours continues to evidence manic/ paranoid elements observed- irritable and at times verbally abusive, POS, multiple clothes changes,, guarded and kelby IOR; on direct exam indeed these elements are present altho pt tolerates session well, accepts med changes as referenced; and will m belle efforts to mobilize out of room more ASSESSMENT/PLAN: Residual element of manic-psychosis but early phase improvement / increase Risperdal to 4 mg hs, add Trazodone 50 mg hs; management plan d/w Nursing in Rounds . 04/24/17 10:30 DAY UPDATE/EXAM: Nursing reports last 24 cycle pt observed evidencing paced improvement - more visible in milieu, attending selective groups, c/w meds and cares, lessening manic intensity/ on direct exam pt better organized and able to disclose PIH with more details a/w conflicted relationship with BF from whom she has no broken up; thought process still disjointed and tangential, has some circumscribed PI but is better; pt responsive to reintegrative support. ASSESSMENT/PLAN: sustaining recompensation progress/ no change in meds currently ; management plan d/w Nursing in Rounds; call to community psychiatrist pending Objective: Vital Signs Temp Pulse Resp BP Pulse Ox 36.6 C 62 16 114/60 94 04/24/17 06:00 04/24/17 06:00 04/24/17 06:00 04/24/17 06:00 04/24/17 06:00 ICD10 Worksheet Patient Problems: Problems Problem Status Onset Acute psychosis Acute
[2017-04-24] MEDS: risperiDONE 2 MG TAB PO SCH (19:46)
[2017-04-24] MEDS: DIVALPROEX ER 250 MG TAB PO SCH (19:46)
[2017-04-24] MEDS: DOXEPIN HCL 25 MG CAP PO SCH (19:46)
[2017-04-24] MEDS: DIVALPROEX NA 500 MG TAB PO SCH (19:46)
--- NOTE | 2017-04-25 06:30 | SOAPPROG ---
SOAP Progress Note Assessment/Plan: Assessment: Plan: 04/22/17 10:15 DAY UPDATE/EXAM: Nursing reports pt slept well but remains with manic residual - changing clothing multiple times, tangential, POS; not overtly psychotic/ on direct exam pt is more organized, less pressured, still tangential and distractible, guarded with IOR; softer stance toward mother and would like mother to bring in more clothes; understands that I will be titrating Depakote up one notch today. ASSESSMENT/PLAN: improving b/w residual manic and psychotic elements/ will obtain DC level 04/24 and increase DK dosing to 1250 mg qd, will consider increasing Risperdal tomorrow; no change in management plan 04/23/17 10:00 DAY UPDATE/EXAM: Nursing reports pt slept 4 hours continues to evidence manic/ paranoid elements observed- irritable and at times verbally abusive, POS, multiple clothes changes,, guarded and kelby IOR; on direct exam indeed these elements are present altho pt tolerates session well, accepts med changes as referenced; and will m belle efforts to mobilize out of room more ASSESSMENT/PLAN: Residual element of manic-psychosis but early phase improvement / increase Risperdal to 4 mg hs, add Trazodone 50 mg hs; management plan d/w Nursing in Rounds . 04/24/17 10:30 DAY UPDATE/EXAM: Nursing reports last 24 cycle pt observed evidencing paced improvement - more visible in milieu, attending selective groups, c/w meds and cares, lessening manic intensity/ on direct exam pt better organized and able to disclose PIH with more details a/w conflicted relationship with BF from whom she has no broken up; thought process still disjointed and tangential, has some circumscribed PI but is better; pt responsive to reintegrative support. ASSESSMENT/PLAN: sustaining recompensation progress/ no change in meds currently ; management plan d/w Nursing in Rounds; call to community psychiatrist pending 04/25/17 DAY UPDATE/EXAM: Objective: Vital Signs Temp Pulse Resp BP Pulse Ox 36.6 C 60 12 103/59 L 96 04/25/17 06:00 04/25/17 06:00 04/25/17 06:00 04/25/17 06:00 04/25/17 06:00 ICD10 Worksheet Patient Problems: Problems Problem Status Onset Acute psychosis Acute
[2017-04-25] MEDS: NICOTINE 21 MG/24 HR PATCH TD SCH ×2 (08:22→15:18)
[2017-04-25] MEDS: ASCORBIC ACID 500 MG TAB PO SCH (10:00)
[2017-04-25] MEDS: DIVALPROEX NA 250 MG TAB PO SCH (10:00)
[2017-04-25] MEDS: MULTIVITAMINS 1 EACH TAB PO SCH (10:00)
[2017-04-25] MEDS: NICOTINE POLACRILEX 2 MG GUM B PRN ×3 (10:00→14:36)
[2017-04-25] MEDS: GABAPENTIN 300 MG CAP PO SCH ×2 (10:00→21:04)
[2017-04-25] MEDS: ACETAMINOPHEN 325 MG TAB PO PRN ×2 (10:39→15:19)
[2017-04-25] MEDS ORDERED: DIVALPROEX ER 250 MG TAB PO SCH (13:39)
[2017-04-25] MEDS ORDERED: BACITRACIN OINTMENT 1 PACKET TP ONE (14:11)
[2017-04-25] MEDS: DIVALPROEX ER 500 MG TAB PO SCH (21:04)
[2017-04-25] MEDS: DOXEPIN HCL 25 MG CAP PO SCH (21:04)
[2017-04-25] MEDS: risperiDONE 2 MG TAB PO SCH (21:05)
--- NOTE | 2017-04-26 06:57 | SOAPPROG ---
SOAP Progress Note Assessment/Plan: Assessment: Plan: 04/22/17 10:15 DAY UPDATE/EXAM: Nursing reports pt slept well but remains with manic residual - changing clothing multiple times, tangential, POS; not overtly psychotic/ on direct exam pt is more organized, less pressured, still tangential and distractible, guarded with IOR; softer stance toward mother and would like mother to bring in more clothes; understands that I will be titrating Depakote up one notch today. ASSESSMENT/PLAN: improving b/w residual manic and psychotic elements/ will obtain DC level 04/24 and increase DK dosing to 1250 mg qd, will consider increasing Risperdal tomorrow; no change in management plan 04/23/17 10:00 DAY UPDATE/EXAM: Nursing reports pt slept 4 hours continues to evidence manic/ paranoid elements observed- irritable and at times verbally abusive, POS, multiple clothes changes,, guarded and kelby IOR; on direct exam indeed these elements are present altho pt tolerates session well, accepts med changes as referenced; and will m belle efforts to mobilize out of room more ASSESSMENT/PLAN: Residual element of manic-psychosis but early phase improvement / increase Risperdal to 4 mg hs, add Trazodone 50 mg hs; management plan d/w Nursing in Rounds . 04/24/17 10:30 DAY UPDATE/EXAM: Nursing reports last 24 cycle pt observed evidencing paced improvement - more visible in milieu, attending selective groups, c/w meds and cares, lessening manic intensity/ on direct exam pt better organized and able to disclose PIH with more details a/w conflicted relationship with BF from whom she has no broken up; thought process still disjointed and tangential, has some circumscribed PI but is better; pt responsive to reintegrative support. ASSESSMENT/PLAN: sustaining recompensation progress/ no change in meds currently ; management plan d/w Nursing in Rounds; call to community psychiatrist pending 04/25/17 DAY UPDATE/EXAM: Nursing reports past 24 hours pt has continued to sleep stably, continues with observed manic residual - mild-mod POS, irritability, abrupt and rapid motoric movements, demanding with aggressive speech tone/ seeking out contact with me and in session is teary at times about how her life experience has gone - particularly over past year plus a/t other broken relationships with men; thought process remains disjointed and tangential and language is imprecise with circumscribed MOI; states today she see psychiatrist q 6 mos secondary to having to self-pay which apparently her father ;provides the $ for ; responsive to reintegrative support in session. ASSESSMENT/PLAN: slow-paced improvement with residual manic/psychotic elements/ DK level 50 - will titrate DK dosing up; o/w no meds changes, CP d/w Nursing in Rounds; still haven/t had c/b from community psychiatrist Objective: Vital Signs Temp Pulse Resp BP Pulse Ox 36.6 C 62 14 98/56 L 96 04/26/17 06:00 04/26/17 06:00 04/26/17 06:00 04/26/17 06:00 04/26/17 06:00 ICD10 Worksheet Patient Problems: Problems Problem Status Onset Acute psychosis Acute
[2017-04-26] MEDS: NICOTINE POLACRILEX 2 MG GUM B PRN ×9 (07:40→21:02)
[2017-04-26] MEDS: NICOTINE 21 MG/24 HR PATCH TD SCH (08:32)
[2017-04-26] MEDS: GABAPENTIN 300 MG CAP PO SCH ×2 (08:32→21:31)
[2017-04-26] MEDS: DIVALPROEX ER 500 MG TAB PO SCH ×2 (08:32→21:32)
[2017-04-26] MEDS: ASCORBIC ACID 500 MG TAB PO SCH (08:32)
[2017-04-26] MEDS: MULTIVITAMINS 1 EACH TAB PO SCH (08:32)
[2017-04-26] MEDS: ACETAMINOPHEN 325 MG TAB PO PRN (08:42)
[2017-04-26] MEDS ORDERED: BACITRACIN OINTMENT 1 PACKET TP ONE (08:57)
[2017-04-26] MEDS: LORazepam 0.5 MG TAB PO PRN ×2 (11:13→17:47)
--- NOTE | 2017-04-26 14:26 | SOAPPROG ---
SOAP Progress Note Assessment/Plan: Assessment: Plan: 04/22/17 10:15 DAY UPDATE/EXAM: Nursing reports pt slept well but remains with manic residual - changing clothing multiple times, tangential, POS; not overtly psychotic/ on direct exam pt is more organized, less pressured, still tangential and distractible, guarded with IOR; softer stance toward mother and would like mother to bring in more clothes; understands that I will be titrating Depakote up one notch today. ASSESSMENT/PLAN: improving b/w residual manic and psychotic elements/ will obtain DC level 04/24 and increase DK dosing to 1250 mg qd, will consider increasing Risperdal tomorrow; no change in management plan 04/23/17 10:00 DAY UPDATE/EXAM: Nursing reports pt slept 4 hours continues to evidence manic/ paranoid elements observed- irritable and at times verbally abusive, POS, multiple clothes changes,, guarded and kelby IOR; on direct exam indeed these elements are present altho pt tolerates session well, accepts med changes as referenced; and will m belle efforts to mobilize out of room more ASSESSMENT/PLAN: Residual element of manic-psychosis but early phase improvement / increase Risperdal to 4 mg hs, add Trazodone 50 mg hs; management plan d/w Nursing in Rounds . 04/24/17 10:30 DAY UPDATE/EXAM: Nursing reports last 24 cycle pt observed evidencing paced improvement - more visible in milieu, attending selective groups, c/w meds and cares, lessening manic intensity/ on direct exam pt better organized and able to disclose PIH with more details a/w conflicted relationship with BF from whom she has no broken up; thought process still disjointed and tangential, has some circumscribed PI but is better; pt responsive to reintegrative support. ASSESSMENT/PLAN: sustaining recompensation progress/ no change in meds currently ; management plan d/w Nursing in Rounds; call to community psychiatrist pending 04/25/17 DAY UPDATE/EXAM: Nursing reports past 24 hours pt has continued to sleep stably, continues with observed manic residual - mild-mod POS, irritability, abrupt and rapid motoric movements, demanding with aggressive speech tone/ seeking out contact with me and in session is teary at times about how her life experience has gone - particularly over past year plus a/t other broken relationships with men; thought process remains disjointed and tangential and language is imprecise with circumscribed MOI; states today she see psychiatrist q 6 mos secondary to having to self-pay which apparently her father ;provides the $ for ; responsive to reintegrative support in session. ASSESSMENT/PLAN: slow-paced improvement with residual manic/psychotic elements/ DK level 50 - will titrate DK dosing up; o/w no meds changes, CP d/w Nursing in Rounds; still haven/t had c/b from community psychiatrist 04/26/17 14:19 DAY ' UPDATE/EXAM: Nursing reports pt responding better to limits with here repetitive demands, using CP which schedules frequency of contacts and organize her thoughts by making lists/ on exam still evidences the manic elements as referenced in previous note; reinforced her positive compliance with meds and the need to reassess in AM ? of titrating dosing higher which she is accepting of ASSESSMENT/PLAN: paced recompensation continues/ reasses updosing meds in AM; destimulating and organizing CP interventions reviewed with Nursing in Rounds Objective: Vital Signs Temp Pulse Resp BP Pulse Ox 36.6 C 62 14 98/56 L 96 04/26/17 06:00 04/26/17 06:00 04/26/17 06:00 04/26/17 06:00 04/26/17 06:00 ICD10 Worksheet Patient Problems: Problems Problem Status Onset Acute psychosis Acute
[2017-04-26] MEDS: DOXEPIN HCL 25 MG CAP PO SCH (21:32)
[2017-04-26] MEDS: risperiDONE 2 MG TAB PO SCH (21:32)
[2017-04-27] MEDS: NICOTINE POLACRILEX 2 MG GUM B PRN ×7 (06:22→20:51)
[2017-04-27] MEDS: NICOTINE 21 MG/24 HR PATCH TD SCH (07:48)
[2017-04-27] MEDS: ACETAMINOPHEN 325 MG TAB PO PRN (07:51)
[2017-04-27] MEDS: ASCORBIC ACID 500 MG TAB PO SCH (08:23)
[2017-04-27] MEDS: DIVALPROEX ER 500 MG TAB PO SCH ×2 (08:23→21:30)
[2017-04-27] MEDS: GABAPENTIN 300 MG CAP PO SCH ×2 (08:23→21:30)
[2017-04-27] MEDS: MULTIVITAMINS 1 EACH TAB PO SCH (09:08)
[2017-04-27] MEDS ORDERED: BACITRACIN OINTMENT 1 PACKET TP ONE (09:56)
[2017-04-27] MEDS: LORazepam 0.5 MG TAB PO PRN (10:23)
[2017-04-27] MEDS: DOXEPIN HCL 25 MG CAP PO SCH (21:30)
[2017-04-27] MEDS: risperiDONE 2 MG TAB PO SCH (21:30)
--- NOTE | 2017-04-28 08:02 | SOAPPROG ---
SOAP Progress Note Assessment/Plan: Assessment: Plan: 04/22/17 10:15 DAY UPDATE/EXAM: Nursing reports pt slept well but remains with manic residual - changing clothing multiple times, tangential, POS; not overtly psychotic/ on direct exam pt is more organized, less pressured, still tangential and distractible, guarded with IOR; softer stance toward mother and would like mother to bring in more clothes; understands that I will be titrating Depakote up one notch today. ASSESSMENT/PLAN: improving b/w residual manic and psychotic elements/ will obtain DC level 04/24 and increase DK dosing to 1250 mg qd, will consider increasing Risperdal tomorrow; no change in management plan 04/23/17 10:00 DAY UPDATE/EXAM: Nursing reports pt slept 4 hours continues to evidence manic/ paranoid elements observed- irritable and at times verbally abusive, POS, multiple clothes changes,, guarded and kelby IOR; on direct exam indeed these elements are present altho pt tolerates session well, accepts med changes as referenced; and will m belle efforts to mobilize out of room more ASSESSMENT/PLAN: Residual element of manic-psychosis but early phase improvement / increase Risperdal to 4 mg hs, add Trazodone 50 mg hs; management plan d/w Nursing in Rounds . 04/24/17 10:30 DAY UPDATE/EXAM: Nursing reports last 24 cycle pt observed evidencing paced improvement - more visible in milieu, attending selective groups, c/w meds and cares, lessening manic intensity/ on direct exam pt better organized and able to disclose PIH with more details a/w conflicted relationship with BF from whom she has no broken up; thought process still disjointed and tangential, has some circumscribed PI but is better; pt responsive to reintegrative support. ASSESSMENT/PLAN: sustaining recompensation progress/ no change in meds currently ; management plan d/w Nursing in Rounds; call to community psychiatrist pending 04/25/17 DAY UPDATE/EXAM: Nursing reports past 24 hours pt has continued to sleep stably, continues with observed manic residual - mild-mod POS, irritability, abrupt and rapid motoric movements, demanding with aggressive speech tone/ seeking out contact with me and in session is teary at times about how her life experience has gone - particularly over past year plus a/t other broken relationships with men; thought process remains disjointed and tangential and language is imprecise with circumscribed MOI; states today she see psychiatrist q 6 mos secondary to having to self-pay which apparently her father ;provides the $ for ; responsive to reintegrative support in session. ASSESSMENT/PLAN: slow-paced improvement with residual manic/psychotic elements/ DK level 50 - will titrate DK dosing up; o/w no meds changes, CP d/w Nursing in Rounds; still haven/t had c/b from community psychiatrist 04/26/17 14:19 DAY UPDATE/EXAM: Nursing reports pt responding better to limits with here repetitive demands, using CP which schedules frequency of contacts and organize her thoughts by making lists/ on exam still evidences the manic elements as referenced in previous note; reinforced her positive compliance with meds and the need to reassess in AM ? of titrating dosing higher which she is accepting of ASSESSMENT/PLAN: paced recompensation continues/ reassess updosing meds in AM; de-stimulating and organizing CP interventions reviewed with Nursing in Rounds 04/27/17 11:00 DAY UPDATE/EXAM: Nursing reports pt sleeping better but evidences residual manic residual; CP focus on limit-setting and behavioral shaping continued/ on direct exam shows some improvement in thought organization but speech tone and pressure still elevated and distractibility/tangentiality presists; CP goals reinforced and meds reviewed. INTAKE/ DR MILLS - pt's community psychiatrist: affirms pt's regression over last 4-6 months with this being the third inpt intervention in 2 months; pt's compliance with meds has been poor thru the regressed period; history of stabilization on [employer] and Risperdal for extended period; has not been on depot antipsychotics in the past other than depot Invega X 2 in inpt stay in January; triggers for regression not provided by Dr. Mills. ASSESSMENT/PLAN: residual and slowly resolving manic elements/ will obtain serum DK 04/30; reassess status for ? DC timetable04/30, update with Dr. Ga for review and DC planning input. Objective: Vital Signs Temp Pulse Resp BP Pulse Ox 36.6 C 81 14 107/57 L 96 04/27/17 06:00 04/27/17 06:00 04/27/17 06:00 04/27/17 06:00 04/27/17 06:00 ICD10 Worksheet Patient Problems: Problems Problem Status Onset Acute psychosis Acute
[2017-04-28] MEDS: DIVALPROEX ER 500 MG TAB PO SCH ×3 (08:41→21:48)
[2017-04-28] MEDS: MULTIVITAMINS 1 EACH TAB PO SCH (08:42)
[2017-04-28] MEDS: GABAPENTIN 300 MG CAP PO SCH ×3 (08:42→21:48)
[2017-04-28] MEDS: NICOTINE POLACRILEX 2 MG GUM B PRN ×5 (08:42→18:05)
[2017-04-28] MEDS: ASCORBIC ACID 500 MG TAB PO SCH (08:42)
[2017-04-28] MEDS: NICOTINE 21 MG/24 HR PATCH TD SCH (08:44)
--- NOTE | 2017-04-28 19:40 | SOAPPROG ---
SOAP Progress Note Assessment/Plan: Assessment: 36yo F with BMD manic, acute exac, several inpt admissions recently due to noncompliance, brought in by BPD after mother called for court ordered draft roller picker since pt on court ordered meds but n/c again 04/28/17 14:09 pt irritable, demanding requests only AG privs of MD for fresh air, otherwise no reason for further conversation. states "I'm ready to leave", states sleeping "fine" and meds are "okay". dismissive of any further questions. Later approached MD in crespo in somewhat hostile manner, standing very close and chewing nicotine gum in loud manner, "I have dehydration, what are you going to prescribe? What are you going to do about it? you're the doctor...I need electrolytes". Noted to approach a peer in dayroom also in hostile manner, standing towering over peer who was sitting down after turning on TV, "No, No, I was sitting here FIRST and I don't want the TV on!" Staff intervened to redirect pt verbally, who then responded. Continues manic with extreme irritability, sarcasm, intimidating, no overt psychosis PLAN: continue Depakote 500/1000, Risperdal 4mg and other meds. consider checking for compliance with mouth checks, or change to liquid/M-tab formulation Objective: Vital Signs Temp Pulse Resp BP Pulse Ox 36.4 C 108 H 17 150/74 H 94 04/28/17 08:40 04/28/17 08:40 04/28/17 08:40 04/28/17 08:40 04/28/17 08:40 - Time Spent With Patient Time Spent With Patient: 15min - Pending Discharge Pending Discharge Within 24 Hours: No Pending Discharge Within 48 Hours: No ICD10 Worksheet Patient Problems: Problems Problem Status Onset Acute psychosis Acute
[2017-04-28] MEDS: risperiDONE 2 MG TAB PO SCH ×2 (21:47→21:48)
[2017-04-28] MEDS: DOXEPIN HCL 25 MG CAP PO SCH (21:48)
[2017-04-28] MEDS: ZOLPIDEM TARTRATE 5 MG TAB PO PRN (21:50)
[2017-04-29] MEDS: NICOTINE 21 MG/24 HR PATCH TD SCH (08:05)
[2017-04-29] MEDS: ASCORBIC ACID 500 MG TAB PO SCH (08:05)
[2017-04-29] MEDS: MULTIVITAMINS 1 EACH TAB PO SCH (08:06)
[2017-04-29] MEDS: DIVALPROEX ER 500 MG TAB PO SCH ×2 (08:06→21:16)
[2017-04-29] MEDS: GABAPENTIN 300 MG CAP PO SCH ×2 (08:07→21:16)
[2017-04-29] MEDS: NICOTINE POLACRILEX 2 MG GUM B PRN ×6 (08:10→20:05)
[2017-04-29] MEDS: LORazepam 0.5 MG TAB PO PRN (19:33)
[2017-04-29] MEDS: ACETAMINOPHEN 325 MG TAB PO PRN (19:34)
[2017-04-29] MEDS: ZOLPIDEM TARTRATE 5 MG TAB PO PRN (21:15)
[2017-04-29] MEDS: risperiDONE 2 MG TAB PO SCH (21:17)
[2017-04-29] MEDS: DOXEPIN HCL 25 MG CAP PO SCH (21:17)
--- NOTE | 2017-04-30 04:29 | SOAPPROG ---
SOAP Progress Note Assessment/Plan: Assessment: 36yo F with BMD manic, acute exac, several inpt admissions recently due to noncompliance, brought in by BPD after mother called for court ordered potato picker since pt on court ordered meds but n/c again 04/28/17 14:09 pt irritable, demanding requests only AG privs of MD for fresh air, otherwise no reason for further conversation. states "I'm ready to leave", states sleeping "fine" and meds are "okay". dismissive of any further questions. Later approached MD in crespo in somewhat hostile manner, standing very close and chewing nicotine gum in loud manner, "I have dehydration, what are you going to prescribe? What are you going to do about it? you're the doctor...I need electrolytes". Noted to approach a peer in dayroom also in hostile manner, standing towering over peer who was sitting down after turning on TV, "No, No, I was sitting here FIRST and I don't want the TV on!" Staff intervened to redirect pt verbally, who then responded. Continues manic with extreme irritability, sarcasm, intimidating, no overt psychosis PLAN: continue Depakote 500/1000, Risperdal 4mg and other meds. consider checking for compliance with mouth checks, or change to liquid/M-tab formulation 04/29/17 14:21 slept 7.5hr. staff reports pt continues provocative with peers and staff, and also seems suspicious and paranoid at times. pt reports "I dont like Gabapentin anymore, also Depakote is getting boring and dulling. I want the green Depakote pills like I have at home,..the ones here have a dye in them that gave me a small rash Continues manic, no overt psychosis, no insight and with questionable commitment to medication compliance PLAN: continue Depakote 500/1000, Risperdal 4mg and other meds. consider checking for compliance with mouth checks, or change to liquid/M-tab formulation VPA level this week Subjective: 15min Objective: Vital Signs Temp Pulse Resp BP Pulse Ox 36.8 C 86 16 119/62 94 04/29/17 08:15 04/29/17 08:15 04/29/17 08:15 04/29/17 08:15 04/29/17 08:15 - Pending Discharge Pending Discharge Within 24 Hours: No Pending Discharge Within 48 Hours: No ICD10 Worksheet Patient Problems: Problems Problem Status Onset Acute psychosis Acute
--- NOTE | 2017-04-30 11:59 | SOAPPROG ---
SOAP Progress Note Assessment/Plan: Assessment: Plan: 04/22/17 10:15 DAY UPDATE/EXAM: Nursing reports pt slept well but remains with manic residual - changing clothing multiple times, tangential, POS; not overtly psychotic/ on direct exam pt is more organized, less pressured, still tangential and distractible, guarded with IOR; softer stance toward mother and would like mother to bring in more clothes; understands that I will be titrating Depakote up one notch today. ASSESSMENT/PLAN: improving b/w residual manic and psychotic elements/ will obtain DC level 04/24 and increase DK dosing to 1250 mg qd, will consider increasing Risperdal tomorrow; no change in management plan 04/23/17 10:00 DAY UPDATE/EXAM: Nursing reports pt slept 4 hours continues to evidence manic/ paranoid elements observed- irritable and at times verbally abusive, POS, multiple clothes changes,, guarded and kelby IOR; on direct exam indeed these elements are present altho pt tolerates session well, accepts med changes as referenced; and will m belle efforts to mobilize out of room more ASSESSMENT/PLAN: Residual element of manic-psychosis but early phase improvement / increase Risperdal to 4 mg hs, add Trazodone 50 mg hs; management plan d/w Nursing in Rounds . 04/24/17 10:30 DAY UPDATE/EXAM: Nursing reports last 24 cycle pt observed evidencing paced improvement - more visible in milieu, attending selective groups, c/w meds and cares, lessening manic intensity/ on direct exam pt better organized and able to disclose PIH with more details a/w conflicted relationship with BF from whom she has no broken up; thought process still disjointed and tangential, has some circumscribed PI but is better; pt responsive to reintegrative support. ASSESSMENT/PLAN: sustaining recompensation progress/ no change in meds currently ; management plan d/w Nursing in Rounds; call to community psychiatrist pending 04/25/17 DAY UPDATE/EXAM: Nursing reports past 24 hours pt has continued to sleep stably, continues with observed manic residual - mild-mod POS, irritability, abrupt and rapid motoric movements, demanding with aggressive speech tone/ seeking out contact with me and in session is teary at times about how her life experience has gone - particularly over past year plus a/t other broken relationships with men; thought process remains disjointed and tangential and language is imprecise with circumscribed MOI; states today she see psychiatrist q 6 mos secondary to having to self-pay which apparently her father ;provides the $ for ; responsive to reintegrative support in session. ASSESSMENT/PLAN: slow-paced improvement with residual manic/psychotic elements/ DK level 50 - will titrate DK dosing up; o/w no meds changes, CP d/w Nursing in Rounds; still haven/t had c/b from community psychiatrist 04/26/17 14:19 DAY UPDATE/EXAM: Nursing reports pt responding better to limits with here repetitive demands, using CP which schedules frequency of contacts and organize her thoughts by making lists/ on exam still evidences the manic elements as referenced in previous note; reinforced her positive compliance with meds and the need to reassess in AM ? of titrating dosing higher which she is accepting of ASSESSMENT/PLAN: paced recompensation continues/ reassess updosing meds in AM; de-stimulating and organizing CP interventions reviewed with Nursing in Rounds 04/27/17 11:00 DAY UPDATE/EXAM: Nursing reports pt sleeping better but evidences residual manic residual; CP focus on limit-setting and behavioral shaping continued/ on direct exam shows some improvement in thought organization but speech tone and pressure still elevated and distractibility/tangentiality presists; CP goals reinforced and meds reviewed. INTAKE/ DR LOPEZ - pt's community psychiatrist: affirms pt's regression over last 4-6 months with this being the third inpt intervention in 2 months; pt's compliance with meds has been poor thru the regressed period; history of stabilization on [place] and Risperdal for extended period; has not been on depot antipsychotics in the past other than depot Invega X 2 in inpt stay in January; triggers for regression not provided by Dr. Lopez. ASSESSMENT/PLAN: residual and slowly resolving manic elements/ will obtain serum DK 04/30; reassess status for ? DC timetable04/30, update with Dr. Ga for review and DC planning input. 04/30/17 DAY UPDATE/EXAM: Objective: Vital Signs Temp Pulse Resp BP Pulse Ox 36.8 C 86 16 119/62 94 04/29/17 08:15 04/29/17 08:15 04/29/17 08:15 04/29/17 08:15 04/29/17 08:15 ICD10 Worksheet Patient Problems: Problems Problem Status Onset Acute psychosis Acute
[2017-04-30] MEDS: ASCORBIC ACID 500 MG TAB PO SCH (13:01)
[2017-04-30] MEDS: DIVALPROEX ER 500 MG TAB PO SCH ×2 (13:01→18:12)
[2017-04-30] MEDS: NICOTINE 21 MG/24 HR PATCH TD SCH (13:02)
[2017-04-30] MEDS: MULTIVITAMINS 1 EACH TAB PO SCH (13:02)
[2017-04-30] MEDS: GABAPENTIN 300 MG CAP PO SCH ×3 (13:02→20:44)
[2017-04-30] MEDS: NICOTINE POLACRILEX 2 MG GUM B PRN ×2 (13:06→15:59)
[2017-04-30] MEDS: LORazepam 0.5 MG TAB PO PRN (13:09)
[2017-04-30] MEDS: DOXEPIN HCL 25 MG CAP PO SCH (20:44)
[2017-04-30] MEDS: risperiDONE 2 MG TAB PO SCH (20:44)
--- NOTE | 2017-05-01 07:45 | SOAPPROG ---
SOAP Progress Note Assessment/Plan: Assessment: Plan: 04/22/17 10:15 DAY UPDATE/EXAM: Nursing reports pt slept well but remains with manic residual - changing clothing multiple times, tangential, POS; not overtly psychotic/ on direct exam pt is more organized, less pressured, still tangential and distractible, guarded with IOR; softer stance toward mother and would like mother to bring in more clothes; understands that I will be titrating Depakote up one notch today. ASSESSMENT/PLAN: improving b/w residual manic and psychotic elements/ will obtain DC level 04/24 and increase DK dosing to 1250 mg qd, will consider increasing Risperdal tomorrow; no change in management plan 04/23/17 10:00 DAY UPDATE/EXAM: Nursing reports pt slept 4 hours continues to evidence manic/ paranoid elements observed- irritable and at times verbally abusive, POS, multiple clothes changes,, guarded and kelby IOR; on direct exam indeed these elements are present altho pt tolerates session well, accepts med changes as referenced; and will m belle efforts to mobilize out of room more ASSESSMENT/PLAN: Residual element of manic-psychosis but early phase improvement / increase Risperdal to 4 mg hs, add Trazodone 50 mg hs; management plan d/w Nursing in Rounds . 04/24/17 10:30 DAY UPDATE/EXAM: Nursing reports last 24 cycle pt observed evidencing paced improvement - more visible in milieu, attending selective groups, c/w meds and cares, lessening manic intensity/ on direct exam pt better organized and able to disclose PIH with more details a/w conflicted relationship with BF from whom she has no broken up; thought process still disjointed and tangential, has some circumscribed PI but is better; pt responsive to reintegrative support. ASSESSMENT/PLAN: sustaining recompensation progress/ no change in meds currently ; management plan d/w Nursing in Rounds; call to community psychiatrist pending 04/25/17 DAY UPDATE/EXAM: Nursing reports past 24 hours pt has continued to sleep stably, continues with observed manic residual - mild-mod POS, irritability, abrupt and rapid motoric movements, demanding with aggressive speech tone/ seeking out contact with me and in session is teary at times about how her life experience has gone - particularly over past year plus a/t other broken relationships with men; thought process remains disjointed and tangential and language is imprecise with circumscribed MOI; states today she see psychiatrist q 6 mos secondary to having to self-pay which apparently her father ;provides the $ for ; responsive to reintegrative support in session. ASSESSMENT/PLAN: slow-paced improvement with residual manic/psychotic elements/ DK level 50 - will titrate DK dosing up; o/w no meds changes, CP d/w Nursing in Rounds; still haven/t had c/b from community psychiatrist 04/26/17 14:19 DAY UPDATE/EXAM: Nursing reports pt responding better to limits with here repetitive demands, using CP which schedules frequency of contacts and organize her thoughts by making lists/ on exam still evidences the manic elements as referenced in previous note; reinforced her positive compliance with meds and the need to reassess in AM ? of titrating dosing higher which she is accepting of ASSESSMENT/PLAN: paced recompensation continues/ reassess updosing meds in AM; de-stimulating and organizing CP interventions reviewed with Nursing in Rounds 04/27/17 11:00 DAY UPDATE/EXAM: Nursing reports pt sleeping better but evidences residual manic residual; CP focus on limit-setting and behavioral shaping continued/ on direct exam shows some improvement in thought organization but speech tone and pressure still elevated and distractibility/tangentiality presists; CP goals reinforced and meds reviewed. INTAKE/ DR LOPEZ - pt's community psychiatrist affirms pt's regression over last 4-6 months with this being the third inpt intervention in 2 months; pt's compliance with meds has been poor thru the regressed period; history of stabilization on [place] and Risperdal for extended period; has not been on depot antipsychotics in the past other than depot Invega X 2 in inpt stay in January; triggers for regression not provided by Dr. Lopez. ASSESSMENT/PLAN: residual and slowly resolving manic elements/ will obtain serum DK 04/30; reassess status for ? DC timetable04/30, update with Dr. Ga for review and DC planning input. 04/30/17 14:00 DAY UPDATE/EXAM: Nursing reeports pt continues to sleep well, c.w cares and meds; observable progress continues at a gradual pace with pt continuing to need limit -setting and redirection at times for demands and intrusiveness; is attending more groups and participating but requires same limits from group leaders as from Nursing in the milieu/ MOC reports that pt in telephone contact earlier today evidenced pressured speech and abrupt ending of conversation c/w residual andre/ on direct exam remains elevated and interuptive, able to be redirected; discussed need for titrating meds further after checking serum dK drawn this AM ; pt accepts extension of inpt course for optimal restabilization. ASSESSMENT/PLAN: residual instability c/w manic elements/ DK pending; CP d/w Nursing in rounds and essentially unchanged Objective: Vital Signs Temp Pulse Resp BP Pulse Ox 36.6 C 89 16 131/58 H 96 05/01/17 07:02 05/01/17 07:02 05/01/17 07:02 05/01/17 07:02 05/01/17 07:02 ICD10 Worksheet Patient Problems: Problems Problem Status Onset Acute psychosis Acute
[2017-05-01] MEDS: NICOTINE 21 MG/24 HR PATCH TD SCH (08:49)
[2017-05-01] MEDS: GABAPENTIN 300 MG CAP PO SCH ×2 (08:50→20:44)
[2017-05-01] MEDS: DIVALPROEX ER 500 MG TAB PO SCH ×2 (08:50→20:45)
[2017-05-01] MEDS: MULTIVITAMINS 1 EACH TAB PO SCH (08:50)
[2017-05-01] MEDS: ASCORBIC ACID 500 MG TAB PO SCH (08:50)
[2017-05-01] MEDS: NICOTINE POLACRILEX 2 MG GUM B PRN ×7 (08:54→17:58)
[2017-05-01] MEDS: LORazepam 0.5 MG TAB PO PRN ×2 (09:30→17:57)
[2017-05-01] MEDS ORDERED: BACITRACIN OINTMENT 1 PACKET TP ONE (10:52)
[2017-05-01] MEDS: ACETAMINOPHEN 325 MG TAB PO PRN (10:53)
--- NOTE | 2017-05-01 13:20 | SOAPPROG ---
SOAP Progress Note Assessment/Plan: Assessment: Plan: 04/22/17 10:15 DAY UPDATE/EXAM: Nursing reports pt slept well but remains with manic residual - changing clothing multiple times, tangential, POS; not overtly psychotic/ on direct exam pt is more organized, less pressured, still tangential and distractible, guarded with IOR; softer stance toward mother and would like mother to bring in more clothes; understands that I will be titrating Depakote up one notch today. ASSESSMENT/PLAN: improving b/w residual manic and psychotic elements/ will obtain DC level 04/24 and increase DK dosing to 1250 mg qd, will consider increasing Risperdal tomorrow; no change in management plan 04/23/17 10:00 DAY UPDATE/EXAM: Nursing reports pt slept 4 hours continues to evidence manic/ paranoid elements observed- irritable and at times verbally abusive, POS, multiple clothes changes,, guarded and kelby IOR; on direct exam indeed these elements are present altho pt tolerates session well, accepts med changes as referenced; and will m belle efforts to mobilize out of room more ASSESSMENT/PLAN: Residual element of manic-psychosis but early phase improvement / increase Risperdal to 4 mg hs, add Trazodone 50 mg hs; management plan d/w Nursing in Rounds . 04/24/17 10:30 DAY UPDATE/EXAM: Nursing reports last 24 cycle pt observed evidencing paced improvement - more visible in milieu, attending selective groups, c/w meds and cares, lessening manic intensity/ on direct exam pt better organized and able to disclose PIH with more details a/w conflicted relationship with BF from whom she has no broken up; thought process still disjointed and tangential, has some circumscribed PI but is better; pt responsive to reintegrative support. ASSESSMENT/PLAN: sustaining recompensation progress/ no change in meds currently ; management plan d/w Nursing in Rounds; call to community psychiatrist pending 04/25/17 DAY UPDATE/EXAM: Nursing reports past 24 hours pt has continued to sleep stably, continues with observed manic residual - mild-mod POS, irritability, abrupt and rapid motoric movements, demanding with aggressive speech tone/ seeking out contact with me and in session is teary at times about how her life experience has gone - particularly over past year plus a/t other broken relationships with men; thought process remains disjointed and tangential and language is imprecise with circumscribed MOI; states today she see psychiatrist q 6 mos secondary to having to self-pay which apparently her father ;provides the $ for ; responsive to reintegrative support in session. ASSESSMENT/PLAN: slow-paced improvement with residual manic/psychotic elements/ DK level 50 - will titrate DK dosing up; o/w no meds changes, CP d/w Nursing in Rounds; still haven/t had c/b from community psychiatrist 04/26/17 14:19 DAY UPDATE/EXAM: Nursing reports pt responding better to limits with here repetitive demands, using CP which schedules frequency of contacts and organize her thoughts by making lists/ on exam still evidences the manic elements as referenced in previous note; reinforced her positive compliance with meds and the need to reassess in AM ? of titrating dosing higher which she is accepting of ASSESSMENT/PLAN: paced recompensation continues/ reassess updosing meds in AM; de-stimulating and organizing CP interventions reviewed with Nursing in Rounds 04/27/17 11:00 DAY UPDATE/EXAM: Nursing reports pt sleeping better but evidences residual manic residual; CP focus on limit-setting and behavioral shaping continued/ on direct exam shows some improvement in thought organization but speech tone and pressure still elevated and distractibility/tangentiality presists; CP goals reinforced and meds reviewed. INTAKE/ DR LOPEZ - pt's community psychiatrist affirms pt's regression over last 4-6 months with this being the third inpt intervention in 2 months; pt's compliance with meds has been poor thru the regressed period; history of stabilization on [place] and Risperdal for extended period; has not been on depot antipsychotics in the past other than depot [place] X 2 in inpt stay in January; triggers for regression not provided by Dr. Lopez. ASSESSMENT/PLAN: residual and slowly resolving manic elements/ will obtain serum DK 04/30; reassess status for ? DC timetable04/30, update with Dr. Ga for review and DC planning input. 04/30/17 14:00 DAY UPDATE/EXAM: Nursing reports pt continues to sleep well, c.w cares and meds; observable progress continues at a gradual pace with pt continuing to need limit -setting and redirection at times for demands and intrusiveness; is attending more groups and participating but requires same limits from group leaders as from Nursing in the milieu/ MOC reports that pt in telephone contact earlier today evidenced pressured speech and abrupt ending of conversation c/w residual andre/ on direct exam remains elevated and interruptive, able to be redirected; discussed need for titrating meds further after checking serum dK drawn this AM ; pt accepts extension of inpt course for optimal restabilization. ASSESSMENT/PLAN: residual instability c/w manic elements/ DK pending; CP d/w Nursing in rounds and essentially unchanged 05/01/17 13:13 DAY ' UPDATE/EXAM: Nursing reports pt continues with observable esidual acuity as referenced/ on direct exam pt remains with POS, interruptive but can redirect, familiar c/o living in the inpt environment; understands meds titrations as referenced - hears that current DK level at 66 too low; agrees to comply with meds change and cooperate with extended inpt course; agrees to continue milieu visibility and attend groups ASSESSMENT/PLAN: continued mental status instability/ increase DK to 2000 mg hs and Risperdal to 6 mg hs; reinforce pt into milieu and more groups Objective: Vital Signs Temp Pulse Resp BP Pulse Ox 36.6 C 89 16 131/58 H 96 05/01/17 07:02 05/01/17 07:02 05/01/17 07:02 05/01/17 07:02 05/01/17 07:02 ICD10 Worksheet Patient Problems: Problems Problem Status Onset Acute psychosis Acute
[2017-05-01] MEDS: risperiDONE 2 MG TAB PO SCH (20:44)
[2017-05-01] MEDS: DOXEPIN HCL 25 MG CAP PO SCH (20:45)
[2017-05-01] MEDS ORDERED: DOCUSATE SODIUM 100 MG CAP PO ONE (21:00)
[2017-05-02] MEDS ORDERED: BACITRACIN OINTMENT 1 PACKET TP ONE (07:28)
--- NOTE | 2017-05-02 08:33 | SOAPPROG ---
SOAP Progress Note Assessment/Plan: Assessment: Plan: 04/22/17 10:15 DAY UPDATE/EXAM: Nursing reports pt slept well but remains with manic residual - changing clothing multiple times, tangential, POS; not overtly psychotic/ on direct exam pt is more organized, less pressured, still tangential and distractible, guarded with IOR; softer stance toward mother and would like mother to bring in more clothes; understands that I will be titrating Depakote up one notch today. ASSESSMENT/PLAN: improving b/w residual manic and psychotic elements/ will obtain DC level 04/24 and increase DK dosing to 1250 mg qd, will consider increasing Risperdal tomorrow; no change in management plan 04/23/17 10:00 DAY UPDATE/EXAM: Nursing reports pt slept 4 hours continues to evidence manic/ paranoid elements observed- irritable and at times verbally abusive, POS, multiple clothes changes,, guarded and kelby IOR; on direct exam indeed these elements are present altho pt tolerates session well, accepts med changes as referenced; and will m belle efforts to mobilize out of room more ASSESSMENT/PLAN: Residual element of manic-psychosis but early phase improvement / increase Risperdal to 4 mg hs, add Trazodone 50 mg hs; management plan d/w Nursing in Rounds . 04/24/17 10:30 DAY UPDATE/EXAM: Nursing reports last 24 cycle pt observed evidencing paced improvement - more visible in milieu, attending selective groups, c/w meds and cares, lessening manic intensity/ on direct exam pt better organized and able to disclose PIH with more details a/w conflicted relationship with BF from whom she has no broken up; thought process still disjointed and tangential, has some circumscribed PI but is better; pt responsive to reintegrative support. ASSESSMENT/PLAN: sustaining recompensation progress/ no change in meds currently ; management plan d/w Nursing in Rounds; call to community psychiatrist pending 04/25/17 DAY UPDATE/EXAM: Nursing reports past 24 hours pt has continued to sleep stably, continues with observed manic residual - mild-mod POS, irritability, abrupt and rapid motoric movements, demanding with aggressive speech tone/ seeking out contact with me and in session is teary at times about how her life experience has gone - particularly over past year plus a/t other broken relationships with men; thought process remains disjointed and tangential and language is imprecise with circumscribed MOI; states today she see psychiatrist q 6 mos secondary to having to self-pay which apparently her father ;provides the $ for ; responsive to reintegrative support in session. ASSESSMENT/PLAN: slow-paced improvement with residual manic/psychotic elements/ DK level 50 - will titrate DK dosing up; o/w no meds changes, CP d/w Nursing in Rounds; still haven/t had c/b from community psychiatrist 04/26/17 14:19 DAY UPDATE/EXAM: Nursing reports pt responding better to limits with here repetitive demands, using CP which schedules frequency of contacts and organize her thoughts by making lists/ on exam still evidences the manic elements as referenced in previous note; reinforced her positive compliance with meds and the need to reassess in AM ? of titrating dosing higher which she is accepting of ASSESSMENT/PLAN: paced recompensation continues/ reassess updosing meds in AM; de-stimulating and organizing CP interventions reviewed with Nursing in Rounds 04/27/17 11:00 DAY UPDATE/EXAM: Nursing reports pt sleeping better but evidences residual manic residual; CP focus on limit-setting and behavioral shaping continued/ on direct exam shows some improvement in thought organization but speech tone and pressure still elevated and distractibility/tangentiality presists; CP goals reinforced and meds reviewed. INTAKE/ DR LOPEZ - pt's community psychiatrist affirms pt's regression over last 4-6 months with this being the third inpt intervention in 2 months; pt's compliance with meds has been poor thru the regressed period; history of stabilization on [place] and Risperdal for extended period; has not been on depot antipsychotics in the past other than depot [place] X 2 in inpt stay in January; triggers for regression not provided by Dr. Lopez. ASSESSMENT/PLAN: residual and slowly resolving manic elements/ will obtain serum DK 04/30; reassess status for ? DC timetable04/30, update with Dr. Ga for review and DC planning input. 04/30/17 14:00 DAY UPDATE/EXAM: Nursing reports pt continues to sleep well, c.w cares and meds; observable progress continues at a gradual pace with pt continuing to need limit -setting and redirection at times for demands and intrusiveness; is attending more groups and participating but requires same limits from group leaders as from Nursing in the milieu/ MOC reports that pt in telephone contact earlier today evidenced pressured speech and abrupt ending of conversation c/w residual andre/ on direct exam remains elevated and interruptive, able to be redirected; discussed need for titrating meds further after checking serum dK drawn this AM ; pt accepts extension of inpt course for optimal restabilization. ASSESSMENT/PLAN: residual instability c/w manic elements/ DK pending; CP d/w Nursing in rounds and essentially unchanged 05/01/17 13: DAY UPDATE/EXAM: Nursing reports pt continues with observable residual manic acuity as referenced/ on direct exam pt remains with POS, interruptive but can redirect , familiar c/o living in the inpt environment; understands meds titrations as referenced - hears that current DK level at 66 and too low; agrees to comply with meds change and cooperate with extended inpt course; agrees to continue milieu visibility and attend groups ASSESSMENT/PLAN: continued mental status instability/ increase DK to 2000 mg hs and Risperdal to 6 mg hs; reinforce pt into milieu and more groups 05/02/17 DAY UPDATE/EXAM: Objective: Vital Signs Temp Pulse Resp BP Pulse Ox 36.6 C 89 16 131/58 H 96 05/01/17 07:02 05/01/17 07:02 05/01/17 07:02 05/01/17 07:02 05/01/17 07:02 ICD10 Worksheet Patient Problems: Problems Problem Status Onset Acute psychosis Acute
[2017-05-02] MEDS: NICOTINE 21 MG/24 HR PATCH TD SCH (08:43)
[2017-05-02] MEDS: DIVALPROEX ER 500 MG TAB PO SCH ×2 (08:43→20:52)
[2017-05-02] MEDS: GABAPENTIN 300 MG CAP PO SCH ×2 (08:43→20:52)
[2017-05-02] MEDS: ASCORBIC ACID 500 MG TAB PO SCH (08:43)
[2017-05-02] MEDS: MULTIVITAMINS 1 EACH TAB PO SCH (08:44)
[2017-05-02] MEDS: DOCUSATE SODIUM 100 MG CAP PO SCH ×2 (08:44→08:47)
[2017-05-02] MEDS: NICOTINE POLACRILEX 2 MG GUM B PRN ×5 (08:46→15:08)
[2017-05-02] MEDS: LORazepam 0.5 MG TAB PO PRN (12:44)
--- NOTE | 2017-05-02 14:14 | SOAPPROG ---
SOAP Progress Note Assessment/Plan: Assessment: Plan: 04/22/17 10:15 DAY UPDATE/EXAM: Nursing reports pt slept well but remains with manic residual - changing clothing multiple times, tangential, POS; not overtly psychotic/ on direct exam pt is more organized, less pressured, still tangential and distractible, guarded with IOR; softer stance toward mother and would like mother to bring in more clothes; understands that I will be titrating Depakote up one notch today. ASSESSMENT/PLAN: improving b/w residual manic and psychotic elements/ will obtain DC level 04/24 and increase DK dosing to 1250 mg qd, will consider increasing Risperdal tomorrow; no change in management plan 04/23/17 10:00 DAY UPDATE/EXAM: Nursing reports pt slept 4 hours continues to evidence manic/ paranoid elements observed- irritable and at times verbally abusive, POS, multiple clothes changes,, guarded and kelby IOR; on direct exam indeed these elements are present altho pt tolerates session well, accepts med changes as referenced; and will m belle efforts to mobilize out of room more ASSESSMENT/PLAN: Residual element of manic-psychosis but early phase improvement / increase Risperdal to 4 mg hs, add Trazodone 50 mg hs; management plan d/w Nursing in Rounds . 04/24/17 10:30 DAY UPDATE/EXAM: Nursing reports last 24 cycle pt observed evidencing paced improvement - more visible in milieu, attending selective groups, c/w meds and cares, lessening manic intensity/ on direct exam pt better organized and able to disclose PIH with more details a/w conflicted relationship with BF from whom she has no broken up; thought process still disjointed and tangential, has some circumscribed PI but is better; pt responsive to reintegrative support. ASSESSMENT/PLAN: sustaining recompensation progress/ no change in meds currently ; management plan d/w Nursing in Rounds; call to community psychiatrist pending 04/25/17 DAY UPDATE/EXAM: Nursing reports past 24 hours pt has continued to sleep stably, continues with observed manic residual - mild-mod POS, irritability, abrupt and rapid motoric movements, demanding with aggressive speech tone/ seeking out contact with me and in session is teary at times about how her life experience has gone - particularly over past year plus a/t other broken relationships with men; thought process remains disjointed and tangential and language is imprecise with circumscribed MOI; states today she see psychiatrist q 6 mos secondary to having to self-pay which apparently her father ;provides the $ for ; responsive to reintegrative support in session. ASSESSMENT/PLAN: slow-paced improvement with residual manic/psychotic elements/ DK level 50 - will titrate DK dosing up; o/w no meds changes, CP d/w Nursing in Rounds; still haven/t had c/b from community psychiatrist 04/26/17 14:19 DAY UPDATE/EXAM: Nursing reports pt responding better to limits with here repetitive demands, using CP which schedules frequency of contacts and organize her thoughts by making lists/ on exam still evidences the manic elements as referenced in previous note; reinforced her positive compliance with meds and the need to reassess in AM ? of titrating dosing higher which she is accepting of ASSESSMENT/PLAN: paced recompensation continues/ reassess updosing meds in AM; de-stimulating and organizing CP interventions reviewed with Nursing in Rounds 04/27/17 11:00 DAY UPDATE/EXAM: Nursing reports pt sleeping better but evidences residual manic residual; CP focus on limit-setting and behavioral shaping continued/ on direct exam shows some improvement in thought organization but speech tone and pressure still elevated and distractibility/tangentiality presists; CP goals reinforced and meds reviewed. INTAKE/ DR LOPEZ - pt's community psychiatrist affirms pt's regression over last 4-6 months with this being the third inpt intervention in 2 months; pt's compliance with meds has been poor thru the regressed period; history of stabilization on [place] and Risperdal for extended period; has not been on depot antipsychotics in the past other than depot [place] X 2 in inpt stay in January; triggers for regression not provided by Dr. Lopez. ASSESSMENT/PLAN: residual and slowly resolving manic elements/ will obtain serum DK 04/30; reassess status for ? DC timetable04/30, update with Dr. Ga for review and DC planning input. 04/30/17 14:00 DAY UPDATE/EXAM: Nursing reports pt continues to sleep well, c.w cares and meds; observable progress continues at a gradual pace with pt continuing to need limit -setting and redirection at times for demands and intrusiveness; is attending more groups and participating but requires same limits from group leaders as from Nursing in the milieu/ MOC reports that pt in telephone contact earlier today evidenced pressured speech and abrupt ending of conversation c/w residual andre/ on direct exam remains elevated and interruptive, able to be redirected; discussed need for titrating meds further after checking serum dK drawn this AM ; pt accepts extension of inpt course for optimal restabilization. ASSESSMENT/PLAN: residual instability c/w manic elements/ DK pending; CP d/w Nursing in rounds and essentially unchanged 05/01/17 13:13 DAY UPDATE/EXAM: Nursing reports pt continues with observable residual manic acuity as referenced/ on direct exam pt remains with POS, interruptive but can redirect , familiar c/o living in the inpt environment; understands meds titrations as referenced - hears that current DK level at 66 and too low; agrees to comply with meds change and cooperate with extended inpt course; agrees to continue milieu visibility and attend groups ASSESSMENT/PLAN: continued mental status instability/ increase DK to 2000 mg qd and Risperdal to 6 mg hs; reinforce pt into milieu and more groups 05/02/17 10:30 DAY UPDATE/EXAM: paced improvement continues in resolving residual manic elements/ on direct exam pt pesents with residual POS and aggressive tone but stays engaged throut session and is more conversant that yesterday; syndromal update reviewed, meds reviewed, encouraged efforts to soften relatedness, reinforced compliance with cares/meds ASSESSMENT/PLAN: progress in recompensating - still with residual manic elements / no change in meds or management as discussed with Nursing in Rounds 05/02/17 14:13 Objective: Vital Signs Temp Pulse Resp BP Pulse Ox 36.6 C 89 16 131/58 H 96 05/01/17 07:02 05/01/17 07:02 05/01/17 07:02 05/01/17 07:02 05/01/17 07:02 ICD10 Worksheet Patient Problems: Problems Problem Status Onset Acute psychosis Acute
[2017-05-02] MEDS: ACETAMINOPHEN 325 MG TAB PO PRN (15:08)
[2017-05-02] MEDS: risperiDONE 2 MG TAB PO SCH (20:52)
[2017-05-02] MEDS: DOXEPIN HCL 25 MG CAP PO SCH (20:53)
[2017-05-02] MEDS: ZOLPIDEM TARTRATE 5 MG TAB PO PRN (21:56)
[2017-05-03] MEDS: NICOTINE POLACRILEX 2 MG GUM B PRN ×8 (06:34→18:16)
[2017-05-03] MEDS: NICOTINE 21 MG/24 HR PATCH TD SCH (07:35)
[2017-05-03] MEDS: DIVALPROEX ER 500 MG TAB PO SCH ×2 (10:51→21:13)
[2017-05-03] MEDS: ASCORBIC ACID 500 MG TAB PO SCH (10:51)
[2017-05-03] MEDS: GABAPENTIN 300 MG CAP PO SCH ×2 (10:51→21:14)
[2017-05-03] MEDS ORDERED: BACITRACIN OINTMENT 1 PACKET TP PRN (11:53)
--- NOTE | 2017-05-03 14:40 | SOAPPROG ---
SOAP Progress Note Assessment/Plan: Assessment: Plan: 04/22/17 10:15 DAY UPDATE/EXAM: Nursing reports pt slept well but remains with manic residual - changing clothing multiple times, tangential, POS; not overtly psychotic/ on direct exam pt is more organized, less pressured, still tangential and distractible, guarded with IOR; softer stance toward mother and would like mother to bring in more clothes; understands that I will be titrating Depakote up one notch today. ASSESSMENT/PLAN: improving b/w residual manic and psychotic elements/ will obtain DC level 04/24 and increase DK dosing to 1250 mg qd, will consider increasing Risperdal tomorrow; no change in management plan 04/23/17 10:00 DAY UPDATE/EXAM: Nursing reports pt slept 4 hours continues to evidence manic/ paranoid elements observed- irritable and at times verbally abusive, POS, multiple clothes changes,, guarded and kelby IOR; on direct exam indeed these elements are present altho pt tolerates session well, accepts med changes as referenced; and will m belle efforts to mobilize out of room more ASSESSMENT/PLAN: Residual element of manic-psychosis but early phase improvement / increase Risperdal to 4 mg hs, add Trazodone 50 mg hs; management plan d/w Nursing in Rounds . 04/24/17 10:30 DAY UPDATE/EXAM: Nursing reports last 24 cycle pt observed evidencing paced improvement - more visible in milieu, attending selective groups, c/w meds and cares, lessening manic intensity/ on direct exam pt better organized and able to disclose PIH with more details a/w conflicted relationship with BF from whom she has no broken up; thought process still disjointed and tangential, has some circumscribed PI but is better; pt responsive to reintegrative support. ASSESSMENT/PLAN: sustaining recompensation progress/ no change in meds currently ; management plan d/w Nursing in Rounds; call to community psychiatrist pending 04/25/17 DAY UPDATE/EXAM: Nursing reports past 24 hours pt has continued to sleep stably, continues with observed manic residual - mild-mod POS, irritability, abrupt and rapid motoric movements, demanding with aggressive speech tone/ seeking out contact with me and in session is teary at times about how her life experience has gone - particularly over past year plus a/t other broken relationships with men; thought process remains disjointed and tangential and language is imprecise with circumscribed MOI; states today she see psychiatrist q 6 mos secondary to having to self-pay which apparently her father ;provides the $ for ; responsive to reintegrative support in session. ASSESSMENT/PLAN: slow-paced improvement with residual manic/psychotic elements/ DK level 50 - will titrate DK dosing up; o/w no meds changes, CP d/w Nursing in Rounds; still haven/t had c/b from community psychiatrist 04/26/17 14:19 DAY UPDATE/EXAM: Nursing reports pt responding better to limits with here repetitive demands, using CP which schedules frequency of contacts and organize her thoughts by making lists/ on exam still evidences the manic elements as referenced in previous note; reinforced her positive compliance with meds and the need to reassess in AM ? of titrating dosing higher which she is accepting of ASSESSMENT/PLAN: paced recompensation continues/ reassess updosing meds in AM; de-stimulating and organizing CP interventions reviewed with Nursing in Rounds 04/27/17 11:00 DAY UPDATE/EXAM: Nursing reports pt sleeping better but evidences residual manic residual; CP focus on limit-setting and behavioral shaping continued/ on direct exam shows some improvement in thought organization but speech tone and pressure still elevated and distractibility/tangentiality presists; CP goals reinforced and meds reviewed. INTAKE/ DR LOPEZ - pt's community psychiatrist affirms pt's regression over last 4-6 months with this being the third inpt intervention in 2 months; pt's compliance with meds has been poor thru the regressed period; history of stabilization on [place] and Risperdal for extended period; has not been on depot antipsychotics in the past other than depot Invega X 2 in inpt stay in January; triggers for regression not provided by Dr. Lopez. ASSESSMENT/PLAN: residual and slowly resolving manic elements/ will obtain serum DK 04/30; reassess status for ? DC timetable04/30, update with Dr. Ga for review and DC planning input. 04/30/17 14:00 DAY UPDATE/EXAM: Nursing reports pt continues to sleep well, c.w cares and meds; observable progress continues at a gradual pace with pt continuing to need limit -setting and redirection at times for demands and intrusiveness; is attending more groups and participating but requires same limits from group leaders as from Nursing in the milieu/ MOC reports that pt in telephone contact earlier today evidenced pressured speech and abrupt ending of conversation c/w residual andre/ on direct exam remains elevated and interruptive, able to be redirected; discussed need for titrating meds further after checking serum dK drawn this AM ; pt accepts extension of inpt course for optimal restabilization. ASSESSMENT/PLAN: residual instability c/w manic elements/ DK pending; CP d/w Nursing in rounds and essentially unchanged 05/01/17 13:13 DAY UPDATE/EXAM: Nursing reports pt continues with observable residual manic acuity as referenced/ on direct exam pt remains with POS, interruptive but can redirect , familiar c/o living in the inpt environment; understands meds titrations as referenced - hears that current DK level at 66 and too low; agrees to comply with meds change and cooperate with extended inpt course; agrees to continue milieu visibility and attend groups ASSESSMENT/PLAN: continued mental status instability/ increase DK to 2000 mg qd and Risperdal to 6 mg hs; reinforce pt into milieu and more groups 05/02/17 10:30 DAY UPDATE/EXAM: paced improvement continues in resolving residual manic elements/ on direct exam pt pesents with residual POS and aggressive tone but stays engaged throut session and is more conversant that yesterday; syndromal update reviewed, meds reviewed, encouraged efforts to soften relatedness, reinforced compliance with cares/meds ASSESSMENT/PLAN: progress in recompensating - still with residual manic elements / no change in meds or management as discussed with Nursing in Rounds 05/03/17 14:30 DAY UPDATE/EXAM: Nursing reports that pt continues paced progress; less intensity and frequency of manic elements a/w POS, intrusiveness interactively, demandingness of Nursing staff for various personal care items; remains c/w cares and meds and tolerating titration of medications with no side effects/ on direct exam focus is on syndromal update, meds review; pt also discusses upcoming speaker phone meeting with myself and her community psychiatrist to assess current state of her recompensation, DC time-table, and f/u DC plan structure and goals - meeting tomorrow at 10:30 ASSESSMENT/PLAN: paced descriptive improvement continues; limited but expanding first order insight/ no change in meds; management plan d/w Nursing in Rounds 0 Objective: Vital Signs Temp Pulse Resp BP Pulse Ox 36.6 C 89 16 131/58 H 96 05/01/17 07:02 05/01/17 07:02 05/01/17 07:02 05/01/17 07:02 05/01/17 07:02 ICD10 Worksheet Patient Problems: Problems Problem Status Onset Acute psychosis Acute
[2017-05-03] MEDS: LORazepam 0.5 MG TAB PO PRN (15:28)
[2017-05-03] MEDS ORDERED: BENZTROPINE MESYLATE 1 MG TAB ONE (18:48)
[2017-05-03] MEDS ORDERED: BENZTROPINE MESYLATE 1 MG TAB PO PRN (18:50)
[2017-05-03] MEDS ORDERED: BENZTROPINE MESYLATE 1 MG TAB PO ONE (19:00)
[2017-05-03] MEDS ORDERED: BENZTROPINE MESYLATE 1 MG TAB PO SCH (21:00)
[2017-05-03] MEDS: ZOLPIDEM TARTRATE 5 MG TAB PO PRN (21:14)
[2017-05-03] MEDS: risperiDONE 2 MG TAB PO SCH (21:14)
[2017-05-03] MEDS: DOXEPIN HCL 25 MG CAP PO SCH (21:15)
[2017-05-04] MEDS: ACETAMINOPHEN 325 MG TAB PO PRN (06:31)
[2017-05-04] MEDS: LORazepam 0.5 MG TAB PO PRN ×3 (06:32→18:13)
[2017-05-04] MEDS: NICOTINE POLACRILEX 2 MG GUM B PRN ×7 (06:32→21:04)
[2017-05-04] MEDS: NICOTINE 21 MG/24 HR PATCH TD SCH (07:19)
[2017-05-04] MEDS: DIVALPROEX ER 500 MG TAB PO SCH ×2 (07:20→18:12)
[2017-05-04] MEDS: GABAPENTIN 300 MG CAP PO SCH ×2 (07:20→21:05)
[2017-05-04] MEDS: ASCORBIC ACID 500 MG TAB PO SCH (07:20)
--- NOTE | 2017-05-04 16:10 | SOAPPROG ---
SOAP Progress Note Assessment/Plan: Assessment: Plan: 04/22/17 10:15 DAY UPDATE/EXAM: Nursing reports pt slept well but remains with manic residual - changing clothing multiple times, tangential, POS; not overtly psychotic/ on direct exam pt is more organized, less pressured, still tangential and distractible, guarded with IOR; softer stance toward mother and would like mother to bring in more clothes; understands that I will be titrating Depakote up one notch today. ASSESSMENT/PLAN: improving b/w residual manic and psychotic elements/ will obtain DC level 04/24 and increase DK dosing to 1250 mg qd, will consider increasing Risperdal tomorrow; no change in management plan 04/23/17 10:00 DAY UPDATE/EXAM: Nursing reports pt slept 4 hours continues to evidence manic/ paranoid elements observed- irritable and at times verbally abusive, POS, multiple clothes changes,, guarded and kelby IOR; on direct exam indeed these elements are present altho pt tolerates session well, accepts med changes as referenced; and will m belle efforts to mobilize out of room more ASSESSMENT/PLAN: Residual element of manic-psychosis but early phase improvement / increase Risperdal to 4 mg hs, add Trazodone 50 mg hs; management plan d/w Nursing in Rounds . 04/24/17 10:30 DAY UPDATE/EXAM: Nursing reports last 24 cycle pt observed evidencing paced improvement - more visible in milieu, attending selective groups, c/w meds and cares, lessening manic intensity/ on direct exam pt better organized and able to disclose PIH with more details a/w conflicted relationship with BF from whom she has no broken up; thought process still disjointed and tangential, has some circumscribed PI but is better; pt responsive to reintegrative support. ASSESSMENT/PLAN: sustaining recompensation progress/ no change in meds currently ; management plan d/w Nursing in Rounds; call to community psychiatrist pending 04/25/17 DAY UPDATE/EXAM: Nursing reports past 24 hours pt has continued to sleep stably, continues with observed manic residual - mild-mod POS, irritability, abrupt and rapid motoric movements, demanding with aggressive speech tone/ seeking out contact with me and in session is teary at times about how her life experience has gone - particularly over past year plus a/t other broken relationships with men; thought process remains disjointed and tangential and language is imprecise with circumscribed MOI; states today she see psychiatrist q 6 mos secondary to having to self-pay which apparently her father ;provides the $ for ; responsive to reintegrative support in session. ASSESSMENT/PLAN: slow-paced improvement with residual manic/psychotic elements/ DK level 50 - will titrate DK dosing up; o/w no meds changes, CP d/w Nursing in Rounds; still haven/t had c/b from community psychiatrist 04/26/17 14:19 DAY UPDATE/EXAM: Nursing reports pt responding better to limits with here repetitive demands, using CP which schedules frequency of contacts and organize her thoughts by making lists/ on exam still evidences the manic elements as referenced in previous note; reinforced her positive compliance with meds and the need to reassess in AM ? of titrating dosing higher which she is accepting of ASSESSMENT/PLAN: paced recompensation continues/ reassess updosing meds in AM; de-stimulating and organizing CP interventions reviewed with Nursing in Rounds 04/27/17 11:00 DAY UPDATE/EXAM: Nursing reports pt sleeping better but evidences residual manic residual; CP focus on limit-setting and behavioral shaping continued/ on direct exam shows some improvement in thought organization but speech tone and pressure still elevated and distractibility/tangentiality presists; CP goals reinforced and meds reviewed. INTAKE/ DR LOPEZ - pt's community psychiatrist affirms pt's regression over last 4-6 months with this being the third inpt intervention in 2 months; pt's compliance with meds has been poor thru the regressed period; history of stabilization on [place] and Risperdal for extended period; has not been on depot antipsychotics in the past other than depot [place] X 2 in inpt stay in January; triggers for regression not provided by Dr. Lopez. ASSESSMENT/PLAN: residual and slowly resolving manic elements/ will obtain serum DK 04/30; reassess status for ? DC timetable04/30, update with Dr. Ga for review and DC planning input. 04/30/17 14:00 DAY UPDATE/EXAM: Nursing reports pt continues to sleep well, c.w cares and meds; observable progress continues at a gradual pace with pt continuing to need limit -setting and redirection at times for demands and intrusiveness; is attending more groups and participating but requires same limits from group leaders as from Nursing in the milieu/ MOC reports that pt in telephone contact earlier today evidenced pressured speech and abrupt ending of conversation c/w residual andre/ on direct exam remains elevated and interruptive, able to be redirected; discussed need for titrating meds further after checking serum dK drawn this AM ; pt accepts extension of inpt course for optimal restabilization. ASSESSMENT/PLAN: residual instability c/w manic elements/ DK pending; CP d/w Nursing in rounds and essentially unchanged 05/01/17 13:13 DAY UPDATE/EXAM: Nursing reports pt continues with observable residual manic acuity as referenced/ on direct exam pt remains with POS, interruptive but can redirect , familiar c/o living in the inpt environment; understands meds titrations as referenced - hears that current DK level at 66 and too low; agrees to comply with meds change and cooperate with extended inpt course; agrees to continue milieu visibility and attend groups ASSESSMENT/PLAN: continued mental status instability/ increase DK to 2000 mg qd and Risperdal to 6 mg hs; reinforce pt into milieu and more groups 05/02/17 10:30 DAY UPDATE/EXAM: paced improvement continues in resolving residual manic elements/ on direct exam pt pesents with residual POS and aggressive tone but stays engaged throut session and is more conversant that yesterday; syndromal update reviewed, meds reviewed, encouraged efforts to soften relatedness, reinforced compliance with cares/meds ASSESSMENT/PLAN: progress in recompensating - still with residual manic elements / no change in meds or management as discussed with Nursing in Rounds 05/03/17 14:30 DAY UPDATE/EXAM: Nursing reports that pt continues paced progress; less intensity and frequency of manic elements a/w POS, intrusiveness interactively, demandingness of Nursing staff for various personal care items; remains c/w cares and meds and tolerating titration of medications with no side effects/ on direct exam focus is on syndromal update, meds review; pt also discusses upcoming speaker phone meeting with myself and her community psychiatrist to assess current state of her recompensation, DC time-table, and f/u DC plan structure and goals - meeting tomorrow at 10:30 ASSESSMENT/PLAN: paced descriptive improvement continues; limited but expanding first order insight/ no change in meds; management plan d/w Nursing in Rounds 05/04/17 16:03 DAY ' UPDATE/EXAM: Further stabilization descriptively reported by nursing over last 24 hours/ on direct exam pt is calmer, less POS, better organized; manages speaker phone meeting with community psychiatrist with my self present effectively in revieweing c salma, discussing current med and f/u treatment plan post dC; dC remains shceduled for tomorrow with stat DK level to be drawn in AM ASSESSMENT/PLAN: improving course sustained/DC planned for AM; CP focus on pt' s final preparation for DC Objective: Vital Signs Temp Pulse Resp BP Pulse Ox 36.6 C 86 14 116/69 97 05/04/17 09:55 05/04/17 09:55 05/04/17 09:55 05/04/17 09:55 05/04/17 09:55 ICD10 Worksheet Patient Problems: Problems Problem Status Onset Acute psychosis Acute
[2017-05-04] MEDS ORDERED: BENZTROPINE MESYLATE 1 MG TAB PO SCH (21:00)
[2017-05-04] MEDS: DOXEPIN HCL 25 MG CAP PO SCH (21:05)
[2017-05-04] MEDS: risperiDONE 2 MG TAB PO SCH (21:06)
[2017-05-05 06:43] VITALS: BP 105/57; PULSE 97; RESP 16; TEMP 97.2; O2SAT 96
[2017-05-05] MEDS: NICOTINE POLACRILEX 2 MG GUM B PRN (07:08)
--- NOTE | 2017-05-05 07:10 | SOAPPROG ---
SOAP Progress Note Assessment/Plan: Assessment: Plan: 04/22/17 10:15 DAY UPDATE/EXAM: Nursing reports pt slept well but remains with manic residual - changing clothing multiple times, tangential, POS; not overtly psychotic/ on direct exam pt is more organized, less pressured, still tangential and distractible, guarded with IOR; softer stance toward mother and would like mother to bring in more clothes; understands that I will be titrating Depakote up one notch today. ASSESSMENT/PLAN: improving b/w residual manic and psychotic elements/ will obtain DC level 04/24 and increase DK dosing to 1250 mg qd, will consider increasing Risperdal tomorrow; no change in management plan 04/23/17 10:00 DAY UPDATE/EXAM: Nursing reports pt slept 4 hours continues to evidence manic/ paranoid elements observed- irritable and at times verbally abusive, POS, multiple clothes changes,, guarded and kelby IOR; on direct exam indeed these elements are present altho pt tolerates session well, accepts med changes as referenced; and will m belle efforts to mobilize out of room more ASSESSMENT/PLAN: Residual element of manic-psychosis but early phase improvement / increase Risperdal to 4 mg hs, add Trazodone 50 mg hs; management plan d/w Nursing in Rounds . 04/24/17 10:30 DAY UPDATE/EXAM: Nursing reports last 24 cycle pt observed evidencing paced improvement - more visible in milieu, attending selective groups, c/w meds and cares, lessening manic intensity/ on direct exam pt better organized and able to disclose PIH with more details a/w conflicted relationship with BF from whom she has no broken up; thought process still disjointed and tangential, has some circumscribed PI but is better; pt responsive to reintegrative support. ASSESSMENT/PLAN: sustaining recompensation progress/ no change in meds currently ; management plan d/w Nursing in Rounds; call to community psychiatrist pending 04/25/17 DAY UPDATE/EXAM: Nursing reports past 24 hours pt has continued to sleep stably, continues with observed manic residual - mild-mod POS, irritability, abrupt and rapid motoric movements, demanding with aggressive speech tone/ seeking out contact with me and in session is teary at times about how her life experience has gone - particularly over past year plus a/t other broken relationships with men; thought process remains disjointed and tangential and language is imprecise with circumscribed MOI; states today she see psychiatrist q 6 mos secondary to having to self-pay which apparently her father ;provides the $ for ; responsive to reintegrative support in session. ASSESSMENT/PLAN: slow-paced improvement with residual manic/psychotic elements/ DK level 50 - will titrate DK dosing up; o/w no meds changes, CP d/w Nursing in Rounds; still haven/t had c/b from community psychiatrist 04/26/17 14:19 DAY UPDATE/EXAM: Nursing reports pt responding better to limits with here repetitive demands, using CP which schedules frequency of contacts and organize her thoughts by making lists/ on exam still evidences the manic elements as referenced in previous note; reinforced her positive compliance with meds and the need to reassess in AM ? of titrating dosing higher which she is accepting of ASSESSMENT/PLAN: paced recompensation continues/ reassess updosing meds in AM; de-stimulating and organizing CP interventions reviewed with Nursing in Rounds 04/27/17 11:00 DAY UPDATE/EXAM: Nursing reports pt sleeping better but evidences residual manic residual; CP focus on limit-setting and behavioral shaping continued/ on direct exam shows some improvement in thought organization but speech tone and pressure still elevated and distractibility/tangentiality presists; CP goals reinforced and meds reviewed. INTAKE/ DR LOPEZ - pt's community psychiatrist affirms pt's regression over last 4-6 months with this being the third inpt intervention in 2 months; pt's compliance with meds has been poor thru the regressed period; history of stabilization on [place] and Risperdal for extended period; has not been on depot antipsychotics in the past other than depot Invega X 2 in inpt stay in January; triggers for regression not provided by Dr. Lopez. ASSESSMENT/PLAN: residual and slowly resolving manic elements/ will obtain serum DK 04/30; reassess status for ? DC timetable04/30, update with Dr. Ga for review and DC planning input. 04/30/17 14:00 DAY UPDATE/EXAM: Nursing reports pt continues to sleep well, c.w cares and meds; observable progress continues at a gradual pace with pt continuing to need limit -setting and redirection at times for demands and intrusiveness; is attending more groups and participating but requires same limits from group leaders as from Nursing in the milieu/ MOC reports that pt in telephone contact earlier today evidenced pressured speech and abrupt ending of conversation c/w residual andre/ on direct exam remains elevated and interruptive, able to be redirected; discussed need for titrating meds further after checking serum dK drawn this AM ; pt accepts extension of inpt course for optimal restabilization. ASSESSMENT/PLAN: residual instability c/w manic elements/ DK pending; CP d/w Nursing in rounds and essentially unchanged 05/01/17 13:13 DAY UPDATE/EXAM: Nursing reports pt continues with observable residual manic acuity as referenced/ on direct exam pt remains with POS, interruptive but can redirect , familiar c/o living in the inpt environment; understands meds titrations as referenced - hears that current DK level at 66 and too low; agrees to comply with meds change and cooperate with extended inpt course; agrees to continue milieu visibility and attend groups ASSESSMENT/PLAN: continued mental status instability/ increase DK to 2000 mg qd and Risperdal to 6 mg hs; reinforce pt into milieu and more groups 05/02/17 10:30 DAY UPDATE/EXAM: paced improvement continues in resolving residual manic elements/ on direct exam pt pesents with residual POS and aggressive tone but stays engaged throut session and is more conversant that yesterday; syndromal update reviewed, meds reviewed, encouraged efforts to soften relatedness, reinforced compliance with cares/meds ASSESSMENT/PLAN: progress in recompensating - still with residual manic elements / no change in meds or management as discussed with Nursing in Rounds 05/03/17 14:30 DAY UPDATE/EXAM: Nursing reports that pt continues paced progress; less intensity and frequency of manic elements a/w POS, intrusiveness interactively, demandingness of Nursing staff for various personal care items; remains c/w cares and meds and tolerating titration of medications with no side effects/ on direct exam focus is on syndromal update, meds review; pt also discusses upcoming speaker phone meeting with myself and her community psychiatrist to assess current state of her recompensation, DC time-table, and f/u DC plan structure and goals - meeting tomorrow at 10:30 ASSESSMENT/PLAN: paced descriptive improvement continues; limited but expanding first order insight/ no change in meds; management plan d/w Nursing in Rounds 05/04/17 16:03 DAY ' UPDATE/EXAM: Further stabilization descriptively reported by nursing over last 24 hours/ on direct exam pt is calmer, less POS, better organized; manages speaker phone meeting with community psychiatrist with my self present effectively in reviewing course, discussing current meds and f/u treatment plan post DC; DC remains scheduled for tomorrow with stat DK level to be drawn in AM ASSESSMENT/PLAN: improving course sustained/DC planned for AM; CP focus on pt' s final preparation for DC 05/05/17 Discharge Note DAY ' UPDATE/EXAM: Objective: Vital Signs Temp Pulse Resp BP Pulse Ox 36.2 C 97 16 105/57 L 96 05/05/17 06:41 05/05/17 06:41 05/05/17 06:41 05/05/17 06:41 05/05/17 06:41 ICD10 Worksheet Patient Problems: Problems Problem Status Onset Acute psychosis Acute
[2017-05-05] MEDS: LORazepam 0.5 MG TAB PO PRN (07:39)
[2017-05-05] MEDS: GABAPENTIN 300 MG CAP PO SCH (08:21)
[2017-05-05] MEDS: DIVALPROEX ER 500 MG TAB PO SCH (08:21)
[2017-05-05] MEDS: ASCORBIC ACID 500 MG TAB PO SCH (08:21)
[2017-05-05] MEDS ORDERED: DIVALPROEX ER 250 MG TAB PO SCH (11:15)
--- NOTE | 2017-05-05 11:24 | SOAPPROG ---
SOAP Progress Note Assessment/Plan: Assessment: Plan: 04/22/17 10:15 DAY UPDATE/EXAM: Nursing reports pt slept well but remains with manic residual - changing clothing multiple times, tangential, POS; not overtly psychotic/ on direct exam pt is more organized, less pressured, still tangential and distractible, guarded with IOR; softer stance toward mother and would like mother to bring in more clothes; understands that I will be titrating Depakote up one notch today. ASSESSMENT/PLAN: improving b/w residual manic and psychotic elements/ will obtain DC level 04/24 and increase DK dosing to 1250 mg qd, will consider increasing Risperdal tomorrow; no change in management plan 04/23/17 10:00 DAY UPDATE/EXAM: Nursing reports pt slept 4 hours continues to evidence manic/ paranoid elements observed- irritable and at times verbally abusive, POS, multiple clothes changes,, guarded and kelby IOR; on direct exam indeed these elements are present altho pt tolerates session well, accepts med changes as referenced; and will m belle efforts to mobilize out of room more ASSESSMENT/PLAN: Residual element of manic-psychosis but early phase improvement / increase Risperdal to 4 mg hs, add Trazodone 50 mg hs; management plan d/w Nursing in Rounds . 04/24/17 10:30 DAY UPDATE/EXAM: Nursing reports last 24 cycle pt observed evidencing paced improvement - more visible in milieu, attending selective groups, c/w meds and cares, lessening manic intensity/ on direct exam pt better organized and able to disclose PIH with more details a/w conflicted relationship with BF from whom she has no broken up; thought process still disjointed and tangential, has some circumscribed PI but is better; pt responsive to reintegrative support. ASSESSMENT/PLAN: sustaining recompensation progress/ no change in meds currently ; management plan d/w Nursing in Rounds; call to community psychiatrist pending 04/25/17 DAY UPDATE/EXAM: Nursing reports past 24 hours pt has continued to sleep stably, continues with observed manic residual - mild-mod POS, irritability, abrupt and rapid motoric movements, demanding with aggressive speech tone/ seeking out contact with me and in session is teary at times about how her life experience has gone - particularly over past year plus a/t other broken relationships with men; thought process remains disjointed and tangential and language is imprecise with circumscribed MOI; states today she see psychiatrist q 6 mos secondary to having to self-pay which apparently her father ;provides the $ for ; responsive to reintegrative support in session. ASSESSMENT/PLAN: slow-paced improvement with residual manic/psychotic elements/ DK level 50 - will titrate DK dosing up; o/w no meds changes, CP d/w Nursing in Rounds; still haven/t had c/b from community psychiatrist 04/26/17 14:19 DAY UPDATE/EXAM: Nursing reports pt responding better to limits with here repetitive demands, using CP which schedules frequency of contacts and organize her thoughts by making lists/ on exam still evidences the manic elements as referenced in previous note; reinforced her positive compliance with meds and the need to reassess in AM ? of titrating dosing higher which she is accepting of ASSESSMENT/PLAN: paced recompensation continues/ reassess updosing meds in AM; de-stimulating and organizing CP interventions reviewed with Nursing in Rounds 04/27/17 11:00 DAY UPDATE/EXAM: Nursing reports pt sleeping better but evidences residual manic residual; CP focus on limit-setting and behavioral shaping continued/ on direct exam shows some improvement in thought organization but speech tone and pressure still elevated and distractibility/tangentiality presists; CP goals reinforced and meds reviewed. INTAKE/ DR LOPEZ - pt's community psychiatrist affirms pt's regression over last 4-6 months with this being the third inpt intervention in 2 months; pt's compliance with meds has been poor thru the regressed period; history of stabilization on Elon and Risperdal for extended period; has not been on depot antipsychotics in the past other than depot Invega X 2 in inpt stay in January; triggers for regression not provided by Dr. Lopez. ASSESSMENT/PLAN: residual and slowly resolving manic elements/ will obtain serum DK 04/30; reassess status for ? DC timetable04/30, update with Dr. Ga for review and DC planning input. 04/30/17 14:00 DAY UPDATE/EXAM: Nursing reports pt continues to sleep well, c.w cares and meds; observable progress continues at a gradual pace with pt continuing to need limit -setting and redirection at times for demands and intrusiveness; is attending more groups and participating but requires same limits from group leaders as from Nursing in the milieu/ MOC reports that pt in telephone contact earlier today evidenced pressured speech and abrupt ending of conversation c/w residual andre/ on direct exam remains elevated and interruptive, able to be redirected; discussed need for titrating meds further after checking serum dK drawn this AM ; pt accepts extension of inpt course for optimal restabilization. ASSESSMENT/PLAN: residual instability c/w manic elements/ DK pending; CP d/w Nursing in rounds and essentially unchanged 05/01/17 13:13 DAY UPDATE/EXAM: Nursing reports pt continues with observable residual manic acuity as referenced/ on direct exam pt remains with POS, interruptive but can redirect , familiar c/o living in the inpt environment; understands meds titrations as referenced - hears that current DK level at 66 and too low; agrees to comply with meds change and cooperate with extended inpt course; agrees to continue milieu visibility and attend groups ASSESSMENT/PLAN: continued mental status instability/ increase DK to 2000 mg qd and Risperdal to 6 mg hs; reinforce pt into milieu and more groups 05/02/17 10:30 DAY UPDATE/EXAM: paced improvement continues in resolving residual manic elements/ on direct exam pt pesents with residual POS and aggressive tone but stays engaged throut session and is more conversant that yesterday; syndromal update reviewed, meds reviewed, encouraged efforts to soften relatedness, reinforced compliance with cares/meds ASSESSMENT/PLAN: progress in recompensating - still with residual manic elements / no change in meds or management as discussed with Nursing in Rounds 05/03/17 14:30 DAY UPDATE/EXAM: Nursing reports that pt continues paced progress; less intensity and frequency of manic elements a/w POS, intrusiveness interactively, demandingness of Nursing staff for various personal care items; remains c/w cares and meds and tolerating titration of medications with no side effects/ on direct exam focus is on syndromal update, meds review; pt also discusses upcoming speaker phone meeting with myself and her community psychiatrist to assess current state of her recompensation, DC time-table, and f/u DC plan structure and goals - meeting tomorrow at 10:30 ASSESSMENT/PLAN: paced descriptive improvement continues; limited but expanding first order insight/ no change in meds; management plan d/w Nursing in Rounds 05/04/17 16:03 DAY ' UPDATE/EXAM: Further stabilization descriptively reported by nursing over last 24 hours/ on direct exam pt is calmer, less POS, better organized; manages speaker phone meeting with community psychiatrist with my self present effectively in reviewing course, discussing current meds and f/u treatment plan post DC; DC remains scheduled for tomorrow with stat DK level to be drawn in AM ASSESSMENT/PLAN: improving course sustained/DC planned for AM; CP focus on pt' s final preparation for DC 05/05/17 Discharge Note 09:00 DAY ' UPDATE/EXAM: Nursing reports pt as calmer, improving concentration in conversant interactions, less POS, + about DC today/ on direct exam pt is indeed calmer with normalizing speech parameters, organized thought process with less distractibility; reviewed inpt course and gains made, understand updosing of Depakote to 2250 mg qd as DK level this AM re;ported at 78/ dc plans reviewed and pt's goals post DC in re-engaging with community caregivers and AA; she does anticipate in f/u appointment w [facility] psychiatrist to work out and terminationn and referral to be seen more affordably and more frequently; does plan to reacitivate relationship with her aa sponsor and return to meetings ; appears improved and ready for DC ASSESSMENT/PLAN: ready for DC today as sustaining improving course DC today to return to apmnt and community life f/u next week with scheduled appointments with psychiatrist and psychotherapist f/u contact with AA sponsor and return to meetings meds as referenced and given 30 day scripts at DC see Discharge Summary Objective: Vital Signs Temp Pulse Resp BP Pulse Ox 36.2 C 97 16 105/57 L 96 05/05/17 06:41 05/05/17 06:41 05/05/17 06:41 05/05/17 06:41 05/05/17 06:41 ICD10 Worksheet Patient Problems: Problems Problem Status Onset Acute psychosis Acute
[2017-05-05] MEDS ORDERED: DIVALPROEX ER 500 MG TAB PO SCH (21:00)
== END 2017-05-05 13:02 | disposition home or self-care (01) | DRG 885 ==
LOC: EEVIPCON 21:31 → BBEH 04-20 12:50
PROVIDERS: ADMIT Psychiatry & Neurology Behavioral Neurology & Neuropsychiatry; ATTEND Psychiatry & Neurology Behavioral Neurology & Neuropsychiatry
DX: F31.9 Bipolar disorder, unspecified (principal); T43.506A Underdosing of unspecified antipsychotics and neuroleptics, initial encounter
CPT/HCPCS: 80305; G0480

== ENCOUNTER 2017-06-09 12:33 | Emergency (ER) | payer OTHER, MEDICAID ==
[2017-06-09 12:43] VITALS: BP 124/83; PULSE 92; RESP 18; TEMP 98.4; O2SAT 96
[2017-06-09] MEDS ORDERED: LORazepam 1 MG TAB PO ONE (13:52)
--- NOTE | 2017-06-09 13:56 | EDPHY ---
H & P Time Seen by Provider: 06/09/17 12:51 HPI/ROS: CHIEF COMPLAINT: Medication refill request HISTORY OF PRESENT ILLNESS: 37-year-old female presents to the emergency department by private vehicle requesting refill of her Ativan, Xanax, and doxepin. Patient has a history of bipolar type 1. She was recently seen in the emergency department and was admitted to [facility] and discharged on 05/15. Apparently they changed her medication from lithium back to Depakote which she has been on in the past. They also put her back on Ativan for her anxiety. Patient has not run out of her Xanax. She states that she has a few left of these but the Ativan she has Ativan doxepin she is out of. She thinks that someone stole these medications from her. She recently traveled back from surgery. She denies substance abuse or alcohol. Currently she has no physical complaints. Her last menstrual period was 1 week ago and she denies . REVIEW OF SYSTEMS: Constitutional: No fever, no chills. Eyes: No double or blurry vision. ENT: No sore throat. Respiratory: No cough, no shortness of breath. Cardiac: No chest pain. Gastrointestinal: No abdominal pain, vomiting or diarrhea. Genitourinary: No dysuria. Musculoskeletal: No neck or back pain. Skin: No rashes. Neurological: No headache. Past Medical/Surgical History: Bipolar Social History: Single Smoking Status: Heavy smoker Physical Exam: General Appearance: Alert, no distress. Vital signs are stable. Eyes: Pupils equal and round. Extraocular motions are all intact. ENT: Mouth: Mucous membranes moist. Respiratory: No wheezing, rhonchi, or rales, lungs are clear to auscultation. Cardiovascular: Regular rate and rhythm. Gastrointestinal: Abdomen is soft and nontender, no masses, no rebound or guarding, bowel sounds normal. Neurological: Alert and oriented x 3, cranial nerves II through XII grossly intact Skin: Warm and dry, no rashes. Musculoskeletal: Nontender to palpate along the cervical, thoracic or lumbar spine. Neck is supple. Extremities: Full range of motion and no peripheral edema. Psychiatric: Patient is oriented X 3, there is no agitation. Constitutional: Initial Vital Signs Temperature (C) 36.9 C 06/09/17 12:41 Heart Rate 92 06/09/17 12:41 Respiratory Rate 18 06/09/17 12:41 Blood Pressure 124/83 H 06/09/17 12:41 O2 Sat (%) 96 06/09/17 12:41 O2 Delivery Mode Room Air Allergies/Adverse Reactions: No Known Allergies Allergy (Unverified 04/19/17 21:41) Home Medications: Medication Instructions Recorded Ascorbic Acid [Vitamin C 500 mg 500 mg PO DAILY #30 tab 05/05/17 (*)] Divalproex ER [Depakote ER 250 MG 250 mg PO DAILY #30 tab 05/05/17 (*)] Divalproex ER [Depakote ER 500 MG 2,000 mg PO HS #120 tab 05/05/17 (*)] Doxepin HCl [SINEquan] 25 mg PO HS #30 cap 05/05/17 Gabapentin [Neurontin 300 MG (*)] 600 mg PO BID #60 cap 05/05/17 LORazepam [Ativan (*)] 0.5 - 1 mg PO Q4 PRN #14 tab 05/05/17 Doxepin HCl [Sinequan 50 MG (*)] 50 mg PO HS #3 cap 06/09/17 Xanax 06/09/17 Medical Decision Making ED Course/Re-evaluation: 37-year-old female presents to the emergency department requesting refill of her Ativan, Xanax and doxepin. I did research the [place] prescription drug monitoring program and the patient had Ativan 0.5 mg #98 filled on May 28 and Xanax 0.5 mg #50 filled on May 28 as well. I explained to the patient that I did not feel comfortable prescribing the Ativan and Xanax. She understands it is her responsibility to keep the medications safe. She was given a single dose is 0.5 mg of Ativan orally. The patient still has a few Xanax. I did give her 3 days supply of doxepin. She was encouraged to follow up with her on-call psychiatrist next week, Sunday, to recheck. Patient was not suicidal or homicidal. Differential Diagnosis: Including functional and major depression, situational depression, medication side effect, drugs and alcohol abuse. - Data Points Medications Given: Discontinued Medications Lorazepam (Ativan) 0.5 mg PO EDNOW ONE Stop: 06/09/17 13:53 Last Admin: 06/09/17 13:52 Dose: 0.5 mg Departure - Departure Disposition: Home, Routine, Self-Care Clinical Impression: Bipolar 1 disorder Condition: Good Instructions: Bipolar Disorder (ED) Additional Instructions: Continue medications as prescribed. Call your psychiatrist and follow up with the on-call psychiatrist to refill your medications. Referrals: [facility],. [Clinic] - As per Instructions Prescriptions: Doxepin HCl [Sinequan 50 MG (*)] 50 mg PO HS #3 cap
== END 2017-06-09 14:00 | disposition home or self-care (01) ==
DX: F31.9 Bipolar disorder, unspecified (principal); F17.200 Nicotine dependence, unspecified, uncomplicated

== ENCOUNTER 2017-07-04 08:36 | Inpatient (IN) | payer OTHER, MEDICAID ==
--- NOTE | 2017-07-04 09:20 | EDPHY ---
H & P Smoking Status: Heavy smoker Time Seen by Provider: 07/04/17 08:59 HPI/ROS: CHIEF COMPLAINT: "My right foot hurts and I need refills of all medicines and I haven't slept in days" HISTORY OF PRESENT ILLNESS: 37-year-old female history of bipolar disorder drug result emergency department complaining of right 5th metatarsal pain for the past 1 year. Denies acute trauma. Denies discoloration. She is able to bear weight. Patient states that she drove from [place] last evening, has lost her phone has lost her medicines, needs refills of Xanax, Ativan, Depakote and is requesting a sleep aid noting that she has not slept in several days. REVIEW OF SYSTEMS: A ten point review of systems was performed and is negative with the exception of the items mentioned in the HPI PAST MEDICAL & SURGICAL HISTORY: Bipolar disorder SOCIAL HISTORY:denies alcohol or drug use FAMILY HISTORY: No pertinent family history PHYSICAL EXAM (Prior to examination, patient consented to physical exam, hands were washed and my usual and customary physical exam procedures followed) 1) GENERAL: Well-developed, well-nourished, alert and oriented. she has rapid, tangential speech,, flight of ideas . 2) HEAD: Normocephalic, atraumatic 3) HEENT: Pupils equal, round, reactive to light bilaterally. Sclera anicteric. 4) NECK: Full range of motion, no meningeal signs. 5) LUNGS: Clear auscultation bilaterally, no wheezes, no rhonchi, no retractions. 6) HEART: Regular rate and rhythm, no murmur, no heave, no gallop. 7) ABDOMEN: No guarding, no rebound, no focal tenderness, 8) MUSCULOSKELETAL: Mild tenderness to palpation base of 5th metatarsal on the right foot. No crepitus. proximal tibia and fibula nontender .5th MT nontender negative Melgar test, compartments soft. Negative Homans no palpable cord 9) BACK: No CVA tenderness no visual or palpable abnormality. 10) SKIN: No rash, no petechiae. 11) Psychiatric: Patient is oriented X 3, she is agitated with rapid, tangential speech, flight of ideas, appears to be responding to internal stimuli . She is cursing me, she is is repeatedly the insulting me with her right middle finger in the air DIFFERENTIAL DIAGNOSIS: in no particular include but limited to andre, bipolar disorder, foot fracture, foot sprain, compartment syndrome a foot (Merlin Fierro) Constitutional: Initial Vital Signs Temperature (C) 36.9 C 07/04/17 08:39 Heart Rate 92 07/04/17 08:39 Respiratory Rate 18 07/04/17 08:39 Blood Pressure 132/103 H 07/04/17 08:39 O2 Sat (%) 94 07/04/17 08:39 O2 Delivery Mode Room Air Allergies/Adverse Reactions: No Known Allergies Allergy (Verified 07/04/17 08:38) Home Medications: Medication Instructions Recorded Ascorbic Acid [Vitamin C 500 mg 500 mg PO DAILY #30 tab 05/05/17 (*)] Divalproex ER [Depakote ER 250 MG 250 mg PO DAILY #30 tab 05/05/17 (*)] Doxepin HCl [Sinequan 50 MG (*)] 50 mg PO HS #3 cap 06/09/17 Divalproex ER [Depakote ER 500 MG 500 mg PO HS 07/04/17 (*)] LORazepam [Ativan (*)] 0.5 - 1 mg PO Q6HRS PRN 07/04/17 risperiDONE [Risperdal] 2 mg PO DAILY 07/04/17 MDM/Departure - MDM Imaging Results: Images reviewed myself (Merlin Fierro) Procedures: Procedure: Splint A postoperative shoe splint was applied by ER wheel alignment technician. After application of the splint I returned and re-examined the patient. The splint was adequately immobilizing the joint and distal to the splint the patient's circulation and sensation were intact. Patient shows no signs of compartment syndrome. Was given orthopedic precautions. (Merlin Fierro) Medications Given: Divalproex Sodium (Depakote Er) 1,500 mg PO HS CONCHA Stop: 12/31/17 20:59 Last Admin: 07/04/17 22:03 Dose: 1,500 mg Doxepin HCl (Sinequan) 50 mg PO HS CONCHA Stop: 12/31/17 20:59 Last Admin: 07/04/17 22:04 Dose: 50 mg Lorazepam (Ativan) 0.5 - 1 mg PO Q6HRS PRN PRN Reason: Anxiety, Able to Take PO Stop: 12/31/17 17:57 Last Admin: 07/04/17 19:07 Dose: 1 mg Risperidone (Risperdal) 2 mg PO DAILY CONCHA Stop: 01/01/18 08:59 Last Admin: 07/05/17 10:21 Dose: Not Given Discontinued Medications Acetaminophen (Tylenol) 1,000 mg PO EDNOW ONE Stop: 07/04/17 09:24 Last Admin: 07/04/17 09:26 Dose: 1,000 mg Lorazepam (Ativan) 2 mg PO EDNOW ONE Stop: 07/04/17 09:43 Last Admin: 07/04/17 09:55 Dose: 2 mg Risperidone (Risperdal) 2 mg PO ONCE ONE Stop: 07/04/17 18:10 Last Admin: 07/04/17 21:47 Dose: Not Given Risperidone (Risperdal) 2 mg PO ONCE ONE Stop: 07/04/17 21:46 Last Admin: 07/04/17 22:04 Dose: 2 mg ED Course/Re-evaluation: Re-evaluation with serial examinations. Regarding her foot complaints,doubt compartment syndrome. Doubt DVT. Doubt infectious etiology such as cellulitis. No evidence of fracture on x-ray. Has been placed in a postoperative shoe, recommend elevation. At 9:30 a.m. upon speaking the patient further in reviewing her old medical records, she has a history of bipolar disorder, she is exhibiting ideas of grandeur, appears to be responding to internal stimuli, glucose sting refills of multiple medications including Depakote, Xanax, Ativan and is requesting medication for sleep noting that she has not slept in several days. She drove to the emergency department. States that she does not get medication refills she will "go hurt someone or myself". I think the patient is acutely manic and I do not think that discharge in emergency department is appropriate at this time. in consultation with Dr. Yeni Arrington the patient has been placed on M1 hold and mental services will be contacted. 10:30 a.m.: Patient re-evaluated after oral Ativan she is more calm now. I discussed her laboratory studies including her non negative acetaminophen level. Prior to being placed on M1 and prior to obtaining laboratory studies on the patient she was given acetaminophen for her right foot pain. Will recheck acetaminophen level at a later point in the ER to ensure it is trending downward. 11:30 a.m.: Patient accepted for admission [facility] (Merlin Fierro) The patient was evaluated and managed by the physician recruitment assistant. I have reviewed this chart and I agree with the findings and plan of care as documented , as indicated by my signature. I am the secondary supervising physician. ( Yeni Arrington) - Depart Disposition: [facility] IP Clinical Impression: Right foot pain, Bipolar affective, manic
[2017-07-04] MEDS ORDERED: ACETAMINOPHEN 500 MG TAB PO ONE (09:23)
[2017-07-04] MEDS ORDERED: ACETAMINOPHEN 500 MG TAB ONE (09:24)
[2017-07-04] MEDS ORDERED: LORazepam 1 MG TAB PO ONE (09:42)
[2017-07-04 09:58] LABS: % IMMATURE GRANULYOCYTES 0.6 % (0.0-1.1); ABSOLUTE IMMATURE GRANULOCYTES 0.04 10^3/uL (0.00-0.10); ADD DIFF? NO; ADD MORPH? NO; ADD SCAN? NO; ATYPICAL LYMPHOCYTE FLAG 0 (0-99); FRAGMENT RBC FLAG 0 (0-99); HEMATOCRIT 46.2 % (38.0-47.0); HEMOGLOBIN 16.3 g/dL (12.6-16.3); LEFT SHIFT FLG 0 (0-99); LIPEMIA HEMOLYSIS FLAG 90 (0-99); MEAN CELL HEMOGLOBIN 32.2 pg (27.9-34.1); MEAN CELL HEMOGLOBIN CONCENTR. 35.3 g/dL (32.4-36.7); MEAN CELL VOLUME 91.3 fL (81.5-99.8); MEAN PLATELET VOLUME 9.5 fL (8.7-11.7); PLATELET CLUMPS FLAG 0 (0-99); PLATELET COUNT 262 10^3/uL (150-400); RED BLOOD CELL COUNT 5.06 10^6/uL (4.18-5.33); RED CELL DISTRIBUTION WIDTH 12.9 % (11.5-15.2)
[2017-07-04 10:26] LABS: ANION GAP 11 mEq/L (8-16); CARBON DIOXIDE 23 mEq/l (22-31); CHLORIDE 103 mEq/L (97-110); CREATININE 0.8 mg/dL (0.6-1.0); ETHANOL SERUM < 10 mg/dL (0-10); GLOMERULAR FILTRATION RATE > 60; GLUCOSE 78 mg/dL (70-100); POTASSIUM 4.3 mEq/L (3.5-5.2); SALICYLATE < 1.0 mg/dL (2.0-20.0); SODIUM 137 mEq/L (134-144)
[2017-07-04 10:50] LABS: ALBUMIN 4.6 g/dL (3.5-5.0); BILIRUBIN,TOTAL 0.8 mg/dL (0.1-1.4); BILIRUBIN-CONJUGATED 0.1 mg/dL (0.0-0.5); BILIRUBIN-UNCONJUGATED 0.7 mg/dL (0.0-1.1); TOTAL PROTEIN 7.9 g/dL (6.3-8.2)
[2017-07-04 13:44] VITALS: RESP 16; O2SAT 95
[2017-07-04] MEDS ORDERED: KETOROLAC 15 MG/1 ML SDV ONE (15:31)
[2017-07-04 16:40] VITALS: BP 121/79; PULSE 109; TEMP 97.3
[2017-07-04] MEDS ORDERED: MAG HYDROX/AL HYDROX/SIMETH 30 ML UDCUP PO PRN (17:58)
[2017-07-04] MEDS ORDERED: MAGNESIUM HYDROXIDE 30 ML UDCUP PO PRN (17:58)
[2017-07-04] MEDS ORDERED: risperiDONE 2 MG TAB PO ONE ×2 (18:09→21:45)
[2017-07-04] MEDS ORDERED: IBUPROFEN 200 MG TAB PO PRN (18:10)
[2017-07-04] MEDS: LORazepam 0.5 MG TAB PO PRN (19:07)
--- NOTE | 2017-07-04 20:31 | BCON ---
[f rep st] BEHAVIORAL HEALTH CONSULTATION INTERNAL MEDICINE CONSULTATION DATE OF CONSULTATION: 07/04/2017 REFERRING PHYSICIAN: Guillermo Cortes MD REASON FOR REFERRAL: Medical clearance for inpatient behavioral health stay. HISTORY OF PRESENT ILLNESS: The patient presented to the emergency department this morning complaining of right foot pain and requesting refills of medications. She also was reporting that she had not slept in days. In the emergency department, she appeared to be manic. She was evaluated by the mental health team and admitted for further psychiatric care. Currently, she reports, "I need to sleep," and otherwise is without acute medical complaints. She reports that her right foot hurts when she uses the gas pedal in a car, but otherwise it is not bothering her. PAST MEDICAL HISTORY: 1. Bipolar disorder. 2. History of medical noncompliance. 3. Tobacco dependence syndrome. PAST SURGICAL HISTORY: She denies a history of surgeries. MEDICATIONS: 1. Risperidone 2 mg p.o. daily. 2. Lorazepam 0.5 to 1 mg p.o. q.6 hours p.r.n. 3. Doxepin 50 mg p.o. at bedtime. 4. Divalproex ER 250 mg p.o. daily and 500 mg p.o. at bedtime. 5. Ascorbic acid 500 mg p.o. daily. ALLERGIES: There are no known drug allergies. SOCIAL HISTORY: She has a bachelor's degree in molecular biology. She is a heavy smoker. She lives alone in an apartment. She reports that her apartment has asbestos. Denies that there is any clean-up underway and further says that her father can afford to have it cleaned up. She is otherwise vague about her social history. FAMILY HISTORY: Noncontributory. REVIEW OF SYSTEMS: Other than fatigue as in HPI, recent loss of sleep, and foot pain, a 10-point review of systems was negative. PHYSICAL EXAMINATION: VITAL SIGNS: Blood pressure is 125/79, heart rate is 105 , respiratory rate is 16, oxygen saturation is 95% on room air, temperature 36.6 degrees. Her weight is 74.8 kg for a body mass index of 24.4. GENERAL: This is a well-nourished, well-developed woman, somewhat unkempt, dressed in a green suicide smock, in bed with the bed clothes over her head. She sits up when asked to by the examiner. HEENT: Extraocular movements are intact. Pupils are equal, round, and reactive to light. Mucous membranes are moist. Dentition is in good condition. NECK: Supple. HEART: There is regular rate and rhythm with no murmurs, rubs, or gallops. She is mildly tachycardic. LUNGS : Clear to auscultation bilaterally. ABDOMEN: Soft, nontender, nondistended with normoactive bowel sounds. EXTREMITIES: There is no cyanosis, clubbing, or edema. Right foot is nontender to palpation with a normal pulse at the dorsalis pedis artery. NEUROLOGIC: Orientation was not checked. She is alert. She has fast movements. Cranial nerves 2 through 12 are grossly intact. There is no focal weakness. Sensation is intact to light touch. LABORATORY STUDIES: Drawn in the emergency department: CBC was overall within normal limits. There was a relative decrement of lymphocytes of no clinical significance. Serum chemistry revealed normal renal function, electrolytes, and liver functions. Beta hCG was negative for . Toxicology screen in the serum was positive for nontoxic level of acetaminophen, negative for salicylates or ethyl alcohol. Toxicology screen in the urine was non-negative for benzodiazepines and was otherwise negative for substances of abuse. There was a subsequent acetaminophen level drawn approximately 2 hours later and it was undetectable in the serum at that time. She had a lipid panel and a TSH determined in August of last year and these were all normal. ASSESSMENT/RECOMMENDATIONS: 1. Mental health issues, pending further evaluation and management per Psychiatry and the mental health team. 2. Right foot pain of unclear etiology. It is okay for her to continue to wear the postoperative shoe. If the pain continues, she can have further evaluation after discharge. The next step might be MR imaging. 3. Tobacco dependence. Advised smoking cessation. I see no medical contraindications to this patient's continued stay on the inpatient behavioral health unit or to any psychiatric medications or procedures. Thank you very much for including me in the care of this patient and please do not hesitate to contact me or the hospitalist service should there be a need for further medical evaluation. /[id number]/MODL MTDD
[2017-07-04] MEDS: DIVALPROEX ER 500 MG TAB PO SCH (22:03)
[2017-07-04] MEDS: DOXEPIN HCL 50 MG CAP PO SCH (22:04)
[2017-07-05] MEDS: risperiDONE 2 MG TAB PO SCH ×2 (10:17→10:21)
[2017-07-05] MEDS: ACETAMINOPHEN 325 MG TAB PO PRN (11:45)
--- NOTE | 2017-07-05 14:34 | BAPA ---
[f rep st] ADMISSION PSYCHIATRIC ASSESSMENT DATE OF SERVICE: 07/05/2017 CHIEF COMPLAINT: "I just need to sleep. I'm not suicidal. I drove 30 hours straight from [place]. I was only there 1 day but was driving around [place]. I have been off my medications for 2 days." HISTORY OF PRESENT ILLNESS: This is a 37-year-old, single, female, who initially self pre sented to [facility] ED with a chief complaint of right foot pain. She told the ER physician that she had been having foot pain for the past year. She denies any acute trauma. She denies discoloration and she is able to bear weight. The patient states that she drove from [place] the day prior to presenti ng to the ED. She lost her phone, has lost her meds. She needs refills of Xanax, Ativan, Depakote and is requesting a sleep aid, noting that she has not slept in a couple of days. Upon evaluation, the ED physician noted the patient was alert and oriented x4. She was agitated and talking rapidly. She was cursing the MD in the ED and repeatedly insulting her with her middle right finger in the a ir. The ED physician states that the patient has flight of ideas and appeared to be responding to i nternal stimuli but, upon review of the TLC evaluation, the patient was verbally aggressive, cursing and agitated but there is no evidence that the patient had grandiosity or that she had decreased ne ed for sleep for greater than 4 days. She reports that she had only been sleeping less than 4 hours for the last 2 nights. She seems to be irritable and uncooperative but she was not actively halluc inating. She was not paranoid, and she was not delusional. Therefore, I think some of her symptoms of irritability and combativeness were misinterpreted as the patient being manic and psychotic, whi ch is the way she was described in her M1 hold. Her M1 hold states "patient exhibiting manic behavio rs, hallucinating, ideas of grandeur. I think the patient is gravely disabled. States she will shruthi t herself or others if not given her prescriptions," and that was in the note by the ER physician, Harmeet Arrington. However, upon TLC evaluation, the patient denied experiencing any hallucinations. She was not paranoid. She was not delusional, and she was not grandiose. Upon presentation to the [facility] inpatient unit on [address] [place] [address], the patient has slept most of the last 24 hours. She was sl eeping after arriving on the unit yesterday afternoon. She slept until dinnertime. She woke up, ate, took her medications and went back to sleep. According to staff, she slept 10-1/2 hours last night . When this MD entered the patient's room this morning, she was still in bed sleeping. When patient woke up, she was uncooperative and unpleasant. She told the MD that she did want to speak to him. MD asked if there was a private room where they could sit down and talk so that he could get a bett er idea of how to help the patient during this hospitalization. The patient sat up on her bed and s tared at the doctor and eventually said "go away. I want to take a shower." MD closed the patient' s door after leaving and, according to staff, the patient went back to sleep. PAST PSYCHIATRIC HISTORY: This patient is well known to the staff on [address] [place] [address] as she was just recent ly here. The patient was admitted to [address] [place] [address] from 04/20/2017 and discharged on 05/05/2017. During th at time, her primary treating psychiatrist was Dr. Torres. Dr. Torres noted in his psychiatric asse ssment that the patient had a similar presentation, that she had been unstable and that she had been decompensating because she had been noncompliant with medications. She was brought to the [facility] ED by [place] Lozano on a court order petition for evaluation. At that time, the patient's mother reported that the patient's behavior had deteriorated and she believed the patient was gravely disabled and could possibly pose a danger to herself or others. The mother was concerne d for the patient's welfare and inability to care for herself due to her mental illness. According to the petition that the mother made with the court, the patient has been verbally aggressive, steal ing money from the mother, and has had the police called to her residence several times due to noise disturbance. On March 31, she was throwing plates out of her window. During that time, the patient pr esented disheveled, fatigued, silly, inappropriately smiling and laughing. She was admitted to the inpatient behavioral health unit on an M1 hold, and she was started on Depakote as a mood stabilizer . The Depakote was titrated up to 2500 mg ER daily. She was also started back on Neurontin which s he had taken in the past for anxiety. She was given doxepin for sleep which is a medication she has taken for quite a while, and she was also given Ativan. The patient had a previous recent hospital ization at [facility] in January of 2017. At that time, she was taking lithium but sto pped taking all of her medications when she was discharged from the hospital except for her benzodia zepines. The patient is followed by an outpatient psychiatrist, Amanda Lopez, . This MD also notes the records indicate that the patient presented to the [facility] ED on and she was seen by Domenica Lemus, and the patient's presentation was very similar t o both her presentation at the end of March, as well as her presentation yesterday. According to Dr. Harmeet Renae's note dated 06/09/2017, 37-year-old female, presents to the emergency department by priv ate vehicle requesting refill of her Ativan, Xanax and doxepin. Patient states that she has a few Xa nax left but that she is out of doxepin and Ativan. She thinks someone stole these medications from her. Currently she has no physical complaints. Review of systems was negative. Dr. Lemus d id not note any signs or symptoms of agitation, irritability and no signs or symptoms of andre were present, and there was no evidence of any psychotic symptoms. Dr. Lemus notes "I did research the [place] prescription drug monitoring program and the patient had Ativan 0.5 mg, #98, filled on May 28 and Xanax 0.5 mg, #50, filled on May [address] Lemus continues "I explained to the patient that I did not feel comfortable prescribing the Ativan and Xanax. She understands it is her responsibility to keep the medications safe. She was given a single dose of 0.5 mg of Ativan o rally. The patient still has a few Xanax. I did give her a 3-day supply of doxepin. She was encour aged to follow up with her on-call psychiatrist next week Sunday to recheck." According to informat ion provided in the TLC evaluation, the patient states that she did contact Dr. Lopez's office, but there is no corroboration of that in the record. This MD did attempt to contact Dr. Lopez, left a voice mail message earlier this morning and so I have not heard back from Dr. Lopez. This MD did a sk the pharmacist to look at the prescription monitoring program to look for any recent prescription s for benzodiazepines that the patient has received. According to the prescription drug monitoring program query, the patient filled a prescription on 06/16/2017 for lorazepam 1 mg tablets, quantity 105, which was supposed to be a 30-day supply. So the patient has run out of her medications early . Upon further investigation, this MD was able to discover through the [facility] Medication History, that the patient is actually getting multiple medications prescribed by multiple MDs. So, a ccording to the patient's report, she only sees Amanda Lopez. However, she has been getting prescrip tions from Amanda Lopez, as well as Imtiaz Haley who prescribed 15, 25 mg, tablets of doxepin on 05/27; Vinnie Masters, also a psychiatrist in [place], prescribed 24 tablets of doxepin 25 mg capsules on June 10, and Nancy Boo, another [place] psychiatrist prescribed 25 tablets of doxepin 25 mg cap sules on 05/28/2017, in addition to the 30 tablets of doxepin that patient was given upon discharge by Mini Torres from our inpatient unit on May 05. Patient also received doxepin from Amanda Lopez l, 50 mg tablets, quantity 30, on 06/15/2017, and an unknown prescriber prescribed three 50 mg table ts of doxepin on 06/09/2017. In addition, patient has been getting Risperdal from Amanda Lopez, 30 t ablets of 2 mg each on 06/15/2017. She got 25 tablets of 2 mg Risperdal from Nancy Boo on 017, and she got Xanax 0.5 mg tablets, quantity 50, from Nancy Boo on 05/28/2017. She also got 22 tablets of 0.5 mg Xanax from Amanda McNaul on 05/07/2017, and it looks like she has also been getting Wellbutrin from Nancy Boo, Depakote from Nancy Boo, Depakote from Amanda SullivanNatyrel, Wellbutrin from Amandapapito SullivanNatyrel, and it looks like she has been filling them at multiple different [facility], one in [facility] and most of her other medications come from the [facility] on [address] here in [place]. ALLERGIES: This patient reports that she has no known drug allergies. CURRENT MEDICATIONS: The patient acknowledges and laboratory reports suggest that she is noncomplia nt with medications and has been for a very long time. She reported to [facility] when she was evaluated i n the ED that she stopped taking most of her medications immediately upon discharge from [address] [place] [address] on May 05 but that she did keep taking the Ativan, the Xanax and the doxepin. She states that she wou ld occasionally take Risperdal but only 2 mg. She states that she was taking 500 mg of Depakote at night but her Depakote level was less than 10; it was undetectable upon this admission. She also st ated she stopped taking the Neurontin that Dr. Torres had prescribed at discharge because she said i t made her feel more "paranoid." She also said that she stopped taking Risperdal because it "disrup anastacio her menses." The patient has a long history of noncompliance with medications. She stated in th e ED that she had run out of all of her benzodiazepines. Her urine tox screen in the ED was positive for benzodiazepines, but her blood was drawn after she was administered a single dose of 2 mg, so i t is likely that she has been off benzodiazepines for at least 2, if not more, days and the only dos e that she had in the last 3 days was the dose she was given in the ED. PAST MEDICAL HISTORY: The patient denies any previous medical history. She also denies any surgica l history. Although she did present to the ED with right foot pain and Dr. Arrington noted that the pa johnathan had mild tenderness to palpation at the base of the 5th metatarsal of the right foot. There w as an x-ray performed. Serial x-rays reported that she had no evidence of a fracture. There were no signs of cellulitis. No signs of infection. There was no evidence to suggest the patient has comp artment syndrome but, none the less, she was put into a postoperative shoe splint, even though the p atchandler has complained of this foot pain for over 1 year and she had not sought treatment for it prio r to coming into the emergency department. SOCIAL HISTORY: The patient lives alone in her own apartment. She has had some conflicts with the neighbors due to noise, disturbing the peace. She reportedly has a bachelor's degree in molecular b iology but has not been working for an unknown period of time. Supposedly her biological parents flo ruiz still and they live in [place]. It was her mother who actually got a court order for emerg ency psychiatric evaluation that prompted the patient's previous admission at the end of March. It is unknown the degree to which her family are involved in her life. The patient's says that she frequ ently travels. She says that she just got back from [facility], and that she has also been "kimberly mcmanus around [place]." It is known from the prescription monitoring program that she has been picking [facility] [place] as recently as 06/15/2017. The patient states that she does not have much support system. She says "I used to have peer support. I am kind of doing my ow n thing right now." SUBSTANCE USE HISTORY: The patient gives conflicting information regarding her substance use. She told Dr. Torres at her intake on April 24 of this year that she had a remote history of alcohol abuse. The patient denied any current substance problems, and does not acknowledge that alcohol was a pro blem in the past. However, the patient did admit that she attended AA meetings in the past. When a sked about her substance use in the ED, the patient stated she drinks alcohol "occasionally." But l ater the patient states that she used to drink "alcoholically." When asked to provide information, patient says "I don't really drink alcoholically anymore." So the patient does admit to using alcoh ol but the amount and frequency are unknown. The patient is pretty guarded about her use, although she admits that she does attend AA meetings occasionally. The patient denies any other drugs of abus e. FAMILY HISTORY: When asked about her family history,patient states "my family are all narcissistic nightmares." She states that her maternal grandmother was "a paranoid schizophrenic" and she states that her mother is "sociopathic." She denied any family history of substance use. ADMISSION LABORATORIES: The patient's white cell count was 7.21, hemoglobin was 16.3, hematocrit wa s 46.2, platelet count was 262. Her sodium was 137, potassium was 4.3, chloride was 103, BUN was 14, creatinine was 0.8, glucose was 78, calcium was 10. Her bilirubin was 0.8. AST was 32, ALT was 30, alkaline phosphatase was 85, total protein 7.9. Her test was negative. Salicylates and acetaminophen were both undetected. Her toxicology panel was positive only for benzodiazepines, neg ative for all other drugs of abuse. Her blood alcohol level was less than 10. Her Depakote level w as undetected, less than 10. MENTAL STATUS EXAMINATION: The patient is a well-developed female, disheveled. She is wearing scru b bottoms and a hooded sweatshirt. When physician knocks on her door, she is difficult to wake up. She eventually sits up in bed, makes eye contact with the physician but is only minimally responsive and uncooperative, states that she does not want to talk to the physician right now, that she would rather go back to sleep and then take a shower. She is alert and oriented x4. Her affect is irrit able. Her mood: She refuses to answer. Her thought process is linear. Her thought content: She d enies any auditory or visual hallucinations. There is no evidence of paranoia or delusions. There is no evidence of andre. The patient slept 10-1/2 hours. Her speech is normal rate and rhythm. Sh e is not exhibiting any signs of delusions. She denies any thoughts, plans or intents to hurt hersel f or anyone else. She says that she only wants to get her medication prescriptions. Her insight and judgment are both poor. IMPRESSION: This is a woman with a history of bipolar disorder. This is her 2nd presentation to in patient admission to [address] [place] [address]. She was here in April for approximately 12 days. She was in [place] in January. Both times patient discontinued medications immediately upon discharge. The only medications she seems willing to take voluntarily when she is not in the hospital are her benzodiaze pines and her doxepin. It appears from the prescription monitoring program that the patient is gett ing large quantities of Ativan. She had 105 mg on 06/15/2017 which was supposed to last her 30 days . She has run out 2 weeks early. She also had 50 tablets of Xanax at the beginning of May which sh e has also run out of. The patient is also getting prescriptions from multiple psychiatrists and on e would assume that the 3 psychiatrists that she seeing, Dr. Michael Masters, Dr. Nancy oBo and Dr. Amanda Lopez are not aware of the fact that the patient is seeing multiple psychiatrists and getting medi cations from all 3 of them at the same time. DIAGNOSTIC IMPRESSIONS: 1. Bipolar disorder, type 1, manic type with psychotic features. Not in evidence during this admis dimas. 2. Alcohol use disorder, severe, in partial remission. 3. Benzodiazepine use disorder, severe. 4. Psychosocial stressors include lack of social support, isolation, living alone, limited contact with family, doctor shopping for prescriptions, traveling out of state, clearly not taking medicatio ns as prescribed. PLAN: 1. Admit to inpatient behavioral health unit on an M1 hold. 2. Monitor closely for safety and on suicide precautions. 3. I have restarted the patient on her last prescribed inpatient medications which were her medicat ions at discharge from [address] [place] [address] on 05/05/2017. I have started her on Depakote ER 1500 mg p.o. at bedt bud, Risperdal 2 mg p.o. at bedtime Ativan 1 mg p.o. q.6 hours p.r.n., doxepin 50 mg p.o. at bedtime . Would recommend switching this patient from benzodiazepines to Neurontin as she is either abusing or diverting the benzodiazepine prescriptions that she is getting and Neurontin would be a safer ch oice for treating this patient's anxiety. However, that is a change that can be made on an outpatien t basis. Unfortunately, the patient does not seem to engage with outpatient providers. According to the report during the last admission, the patient was noncompliant with visits to her outpatient pearl and it sounds like she has also been noncompliant with visits with Amanda Lopez, and she is a lso getting medications from multiple providers. It is unclear whether she is getting those prescri ption refills by phone or she has actually seeing those providers in person, but would strongly evie mmend that this patient have a contract with her provider that she will get medications from only 1 provider and recommend stricter supervision of her prescriptions once she is no longer in the hospit al. 4. Patient will engage in individual, group, and milieu psychotherapies. 5. This psychiatrist has left a voice mail message with Dr. Amanda Lopez who we have release of info rmation to communicate with. All the information that is collected during this inpatient hospitaliz ation we will share with Dr. Lopez in an effort to improve continuity of care for this patient. 6. Estimated length of stay is 2-3 days. /[id number]/MODL
[2017-07-05] MEDS: LORazepam 0.5 MG TAB PO PRN (16:35)
[2017-07-05] MEDS: DOXEPIN HCL 50 MG CAP PO SCH (20:18)
[2017-07-05] MEDS: DIVALPROEX ER 500 MG TAB PO SCH (20:18)
[2017-07-05] MEDS ORDERED: risperiDONE 2 MG TAB PO SCH (21:00)
[2017-07-06] MEDS: LORazepam 0.5 MG TAB PO PRN ×2 (09:52→15:58)
[2017-07-06] MEDS: NICOTINE POLACRILEX 2 MG GUM B PRN ×2 (13:02→14:12)
--- NOTE | 2017-07-06 14:20 | SOAPPROG ---
SOAP Progress Note Assessment/Plan: Assessment: 07/06/17 14:11 Plan: 1. Patient states she was "never suicidal" and denies having any recent psychotic sxs. She has not presented with any manic sxs, including no decreased need for sleep (slept > 10 hrs past 3 nights), no increase in goal-directed activity, no pressured speech, no racing thoughts, no reckless behavior and no elated/elevated mood. She does not meet criteria to be on mental health hold and does not meet criteria to be in hospital. Will change to voluntary status and patient has requested to return to her apartment and f/u with her outpatient psych MD, Dr. Amanda Lopez. 2. CC has left [address] Lopez at her office and on her cell phone , and has not heard back. Likewise, MD has left voicemail messages at both numbers and still has not heard back from Dr. Lopez or her office staff. Supposedly, patient has appointment already scheduled on 07/20/[address] Lopez, but CC tried to confirm this with voicemail message and has not heard back. 3. MD will d/c patient home today with 14 days worth of prescriptions to last until her appt with Dr. Lopez on 07/20/17. 4. MD recommends patient have VPA level done prior to her appointment with Dr. Lopez. She agrees to call Dr. Lopez's office on Sunday and ask for a lab order to be placed for the blood draw. Patient has indicated that she won't stay on Depakote b/c she doesn't like the "way it makes me feel." MD has strongly encouraged her to maintain compliance with meds until she sees Dr. Lopez in person and to discuss with with her any potential changes in medication regimen. explained that patient has consented to VPA and Risperdal during both of her last 2 psych hospitalizations and has gotten Rx from Dr. Lopez and Dr. Boo for these meds as an outpatient. If patient really doesn't want to be taking these meds, then she needs to discuss with her providers and find a more acceptable alternative, and not just take prescriptions and not take the meds once she's out of the hospital. Patient said she would agree to follow this advice and talk to Dr. Lopez in 2 weeks, or sooner if she can get an earlier appointment. Subjective: Met with patient and discussed with staff. Patient presents sleepy, psychomotor retardation. She is wearing same hoodie and sweatpants as yesterday, but is seated at table. She says she feels "tired" but denies feeling depressed, sad or anxious. She is not restless or fidgety. Her speech is slow and she denies racing thoughts, paranoia, delusions, AH/VH. She states quite emphatically, "I' m not suicidal and I never planned to hurt myself." She says, "I didn't go to the ED because I was depressed or wanted to kill myself, I went to get my medications refilled." She says, "I'm not a danger to myself or anyone else." Patient says she wants to return to her apartment. Her mother lives in [place] , but according to patient is "not a support." Her FOC is in [place], but she doesn't have a good relationship with him either. She says "I didn't trust my last therapist" and says she doesn't want to try another therapist at this time. She says she will contact Dr. Lopez as soon as she is out of the hospital and try to get an earlier appt. She currently has an appt scheduled on 07/20/17, and CC and have both tried to contact Dr. Lopez's office and left multiple voicemail messages, but have not gotten any response. Patient denies any thoughts, plan or intent to hurt herself. Objective: Vital Signs Temp Pulse Resp BP Pulse Ox 36.3 C 109 H 16 121/79 H 95 07/04/17 16:38 07/04/17 16:38 07/04/17 16:38 07/04/17 16:38 07/04/17 16:38 MSE: Groggy, dishevelled, wearing sweatpants and hoodie. Affect: Euthymic Mood : "Tired" TP: Linear TC: Denies any AH/VH, no evidence of paranoia, delusions , denies any SI/HI Insight/Judgment: Poor - Time Spent With Patient Time Spent With Patient: 20" - Pending Discharge Pending Discharge Within 24 Hours: Yes Pending Discharge Date: 07/06/17 Pending Discharge Time: 17:00 ICD10 Worksheet Patient Problems: Problems Problem Status Onset Bipolar affective, manic Acute Right foot pain Acute Acute psychosis Acute
[2017-07-06] MEDS: ACETAMINOPHEN 325 MG TAB PO PRN (14:38)
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
== END 2017-07-06 15:45 | disposition home or self-care (01) | DRG 885 ==
LOC: BBEH 14:35
PROVIDERS: ADMIT Psychiatry & Neurology Psychiatry; ATTEND Specialist
DX: F31.2 Bipolar disorder, current episode manic severe with psychotic features (principal); F13.90 Sedative, hypnotic, or anxiolytic use, unspecified, uncomplicated; M79.671 Pain in right foot; F17.200 Nicotine dependence, unspecified, uncomplicated; Z72.89 Other problems related to lifestyle
CPT/HCPCS: 80305; G0480; J1885; L3260

== ENCOUNTER 2017-09-10 20:02 | Emergency (ER) | payer OTHER, MEDICAID ==
[2017-09-10 20:09] VITALS: TEMP 97.9
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
[2017-09-10 21:44] VITALS: BP 132/77; PULSE 8; RESP 16; O2SAT 96
== END 2017-09-10 20:45 | disposition home or self-care (01) ==
DX: S99.922A Unspecified injury of left foot, initial encounter (principal); F17.200 Nicotine dependence, unspecified, uncomplicated; W20.8XXA Other cause of strike by thrown, projected or falling object, initial encounter; Y99.8 Other external cause status

== ENCOUNTER 2017-10-22 07:58 | Emergency (ER) | payer OTHER, MEDICAID ==
[2017-10-22 08:06] VITALS: RESP 18
[2017-10-22] MEDS ORDERED: IBUPROFEN 600 MG TAB PO ONE (08:28)
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
[2017-10-22 09:32] VITALS: BP 112/64; PULSE 91; TEMP 97.9; O2SAT 94
== END 2017-10-22 09:32 | disposition home or self-care (01) ==
LOC: EDUNIT#
DX: S20.20XA Contusion of thorax, unspecified, initial encounter (principal); S30.0XXA Contusion of lower back and pelvis, initial encounter; V49.40XA Driver injured in collision with unspecified motor vehicles in traffic accident, initial encounter; Y92.410 Unspecified street and highway as the place of occurrence of the external cause; Y99.8 Other external cause status; Y93.89 Activity, other specified

== ENCOUNTER 2017-11-27 19:47 | Inpatient (IN) | payer OTHER, MEDICAID ==
--- NOTE | 2017-11-27 20:11 | EDPHY ---
H & P Smoking Status: Heavy smoker Time Seen by Provider: 11/27/17 19:54 HPI/ROS: CHIEF COMPLAINT: M1 hold HISTORY OF PRESENT ILLNESS: 37-year-old female presents to the emergency department with [facility] on a certified M1 hold. The patient has a history of bipolar type 1. She states "my mom called the travel writer on me and I got arrested and I was brought here ". Patient denies suicidal homicidal ideation. She states that she has been compliant with her medications. She admits to drinking 2 glasses of wine tonight. She smokes marijuana on occasion. Denies any other substance abuse. Currently she has no physical complaints. Denies chest pain or difficulty breathing. Denies abdominal pain or vomiting. No reported trauma. REVIEW OF SYSTEMS: Constitutional: No fever, no chills. Eyes: No double or blurry vision. ENT: No sore throat. Respiratory: No cough, no shortness of breath. Cardiac: No chest pain. Gastrointestinal: No abdominal pain, vomiting or diarrhea. Genitourinary: No dysuria. Musculoskeletal: No neck or back pain. Skin: No rashes. Neurological: No headache. (Lazaro,Diann M) Past Medical/Surgical History: Bipolar, PTSD (Suzannein,Diann M) Social History: Single, lives alone in [place] (Lazaro,Diann M) Physical Exam: General Appearance: Alert, no distress. Pressured speech. Appears anxious. Eyes: Pupils equal and round. Extraocular motions are all intact. ENT: Mouth: Mucous membranes moist. Respiratory: No wheezing, rhonchi, or rales, lungs are clear to auscultation. Cardiovascular: Regular rate and rhythm. Tachycardic. Gastrointestinal: Abdomen is soft and nontender, no masses, no rebound or guarding, bowel sounds normal. Neurological: Alert and oriented x 3, cranial nerves II through XII grossly intact Skin: Warm and dry, no rashes. Musculoskeletal: Nontender to palpate along the cervical, thoracic or lumbar spine. Neck is supple. Extremities: Full range of motion and no peripheral edema. Psychiatric: Patient is oriented X 3, there is no agitation. (Lazaro,Diann M) Constitutional: Initial Vital Signs Temperature (C) 36.8 C 11/27/17 19:47 Heart Rate 114 H 11/27/17 19:47 Respiratory Rate 20 11/27/17 19:47 Blood Pressure 148/106 H 11/27/17 19:47 O2 Sat (%) 94 11/27/17 19:47 O2 Delivery Mode Room Air Allergies/Adverse Reactions: No Known Allergies Allergy (Verified 11/27/17 20:18) Home Medications: Medication Instructions Recorded Doxepin HCl [Sinequan 50 MG (*)] 50 mg PO HS #14 cap 07/06/17 LORazepam [Ativan (*)] 0.5 mg PO BID PRN #20 tab 07/06/17 risperiDONE [Risperdal] 2 mg PO HS #14 tab 07/06/17 Hydrocodone/APAP 5/325 [[place] 1 tab PO Q6 PRN #7 tab 09/10/17 5/325 (RX)] KLONOPIN 09/10/17 Lunesta 09/10/17 Seroquel 100 mg (*) 09/10/17 Lamictal 11/27/17 Medical Decision Making ED Course/Re-evaluation: 37-year-old female who is on court-ordered M1 hold. She has been medically cleared and is awaiting mental health evaluation. (Diann Willis) Differential Diagnosis: Depression including functional and major depression, situational depression, medication side effect, drugs and alcohol abuse. (Diann Willis) Care Turn Over: Care will be turned over to Dr. Ibarra, secondary supervising physician, for disposition and plan. (Diann Willis) 2:50 a.m.- The patient has been seen by mental health worker and has been accepted for placement at [address] [place] [address] Leone. I have completed the EMTALA form. (Cristina Ibarra) - Data Points Laboratory Results: Laboratory Results 11/27/17 20:19 11/27/17 20:19 11/27/17 11/27/17 11/27/17 20:19 20:19 20:19 WBC 7.99 10^3/uL 10^3/uL (3.80-9.50) RBC 4.96 10^6/uL 10^6/uL (4.18-5.33) Hgb 16.5 g/dL H g/dL (12.6-16.3) Hct 46.1 % % (38.0-47.0) MCV 92.9 fL fL (81.5-99.8) MCH 33.3 pg pg (27.9-34.1) MCHC 35.8 g/dL g/dL (32.4-36.7) RDW 12.0 % % (11.5-15.2) Plt Count 324 10^3/uL 10^3/uL (150-400) MPV 9.4 fL fL (8.7-11.7) Neut % (Auto) 68.0 % % (39.3-74.2) Lymph % (Auto) 21.4 % % (15.0-45.0) Payne % (Auto) 8.1 % % (4.5-13.0) Eos % (Auto) 1.6 % % (0.6-7.6) Baso % (Auto) 0.5 % % (0.3-1.7) Nucleat RBC Rel Count 0.0 % % (0.0-0.2) Absolute Neuts (auto) 5.43 10^3/uL 10^3/uL (1.70-6.50) Absolute Lymphs (auto) 1.71 10^3/uL 10^3/uL (1.00-3.00) Absolute Monos (auto) 0.65 10^3/uL 10^3/uL (0.30-0.80) Absolute Eos (auto) 0.13 10^3/uL 10^3/uL (0.03-0.40) Absolute Basos (auto) 0.04 10^3/uL 10^3/uL (0.02-0.10) Absolute Nucleated RBC 0.00 10^3/uL 10^3/uL (0-0.01) Immature Gran % 0.4 % % (0.0-1.1) Immature Gran # 0.03 10^3/uL 10^3/uL (0.00-0.10) Sodium 148 mEq/L H mEq/L (134-144) Potassium 4.7 mEq/L mEq/L (3.5-5.2) Chloride 108 mEq/L mEq/L (97-110) Carbon Dioxide 22 mEq/l mEq/l (22-31) Anion Gap 18 mEq/L H mEq/L (8-16) BUN 7 mg/dL mg/dL (7-23) Creatinine 0.9 mg/dL mg/dL (0.6-1.0) Estimated GFR > 60 Glucose 104 mg/dL H mg/dL (70-100) Calcium 10.2 mg/dL mg/dL (8.5-10.4) TSH 4.000 uIU/mL uIU/mL (0.465-4.680) Beta HCG, Qual NEGATIVE Urine Opiates Screen Urine Barbiturates Ur Phencyclidine Scrn Ur Amphetamine Screen U Benzodiazepines Scrn Urine Cocaine Screen U Marijuana (THC) Screen Ethyl Alcohol 48 mg/dL H mg/dL (0-10) 11/27/17 20:00 WBC RBC Hgb Hct MCV MCH MCHC RDW Plt Count MPV Neut % (Auto) Lymph % (Auto) Payne % (Auto) Eos % (Auto) Baso % (Auto) Nucleat RBC Rel Count Absolute Neuts (auto) Absolute Lymphs (auto) Absolute Monos (auto) Absolute Eos (auto) Absolute Basos (auto) Absolute Nucleated RBC Immature Gran % Immature Gran # Sodium Potassium Chloride Carbon Dioxide Anion Gap BUN Creatinine Estimated GFR Glucose Calcium TSH Beta HCG, Qual Urine Opiates Screen NON-NEGATIVE H (NEGATIVE) Urine Barbiturates NEGATIVE (NEGATIVE) Ur Phencyclidine Scrn NEGATIVE (NEGATIVE) Ur Amphetamine Screen NEGATIVE (NEGATIVE) U Benzodiazepines Scrn NEGATIVE (NEGATIVE) Urine Cocaine Screen NEGATIVE (NEGATIVE) U Marijuana (THC) Screen NON-NEGATIVE H (NEGATIVE) Ethyl Alcohol Medications Given: Doxepin HCl (Sinequan) 10 mg PO HS [facility] Stop: 05/27/18 01:44 Last Admin: 11/28/17 01:53 Dose: 10 mg Discontinued Medications Clonazepam (Klonopin) 2 mg PO EDNOW ONE Stop: 11/28/17 01:22 Last Admin: 11/28/17 01:29 Dose: 2 mg Risperidone (Risperdal) 2 mg PO ONCE ONE Stop: 11/28/17 01:22 Last Admin: 11/28/17 01:53 Dose: 2 mg Departure - Departure Disposition: [facility] IP Clinical Impression: Bipolar 1 disorder Condition: Fair Referrals: Karina Perkins MD [Primary Care Provider] - As per Instructions
[2017-11-27 20:29] LABS: PLATELET COUNT 324 10^3/uL (150-400)
[2017-11-28] MEDS ORDERED: risperiDONE 2 MG TAB PO ONE (01:21)
[2017-11-28] MEDS ORDERED: clonazePAM 1 MG TAB PO ONE (01:21)
[2017-11-28] MEDS ORDERED: DOXEPIN HCL 10 MG CAP PO SCH (01:45)
[2017-11-28] MEDS ORDERED: OLANZapine 5 MG TAB PO PRN (04:06)
[2017-11-28] MEDS ORDERED: MAGNESIUM HYDROXIDE 30 ML UDCUP PO PRN (04:06)
[2017-11-28] MEDS ORDERED: LORazepam 0.5 MG TAB ONE (04:07)
[2017-11-28] MEDS: LORazepam 0.5 MG TAB PO PRN ×2 (04:21→21:14)
[2017-11-28] MEDS: NICOTINE 21 MG/24 HR PATCH TD SCH ×2 (04:21→09:08)
[2017-11-28] MEDS ORDERED: HYDROCODONE/APAP 5/325 TAB PO PRN (04:26)
[2017-11-28] MEDS: NICOTINE POLACRILEX 2 MG GUM B PRN ×5 (09:08→18:24)
[2017-11-28] MEDS ORDERED: RISPERIDONE 2 MG ODT TAB SL PRN (11:33)
[2017-11-28] MEDS: ACETAMINOPHEN 325 MG TAB PO PRN (12:36)
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
[2017-11-28] MEDS ORDERED: ALBUTEROL 60 PUFFS/8 GM MDI IH PRN (14:49)
[2017-11-28] MEDS ORDERED: ALBUTEROL 200 PUFFS/18 GM MDI IH PRN (15:24)
[2017-11-28] MEDS: RISPERIDONE 2 MG ODT TAB SL SCH (20:40)
[2017-11-28] MEDS: clonazePAM 1 MG TAB PO SCH (20:40)
[2017-11-28] MEDS ORDERED: RISPERIDONE 2 MG ODT TAB SL SCH (21:00)
[2017-11-29] MEDS: NICOTINE 21 MG/24 HR PATCH TD SCH (08:00)
[2017-11-29] MEDS: NICOTINE POLACRILEX 2 MG GUM B PRN ×8 (08:00→17:23)
[2017-11-29] MEDS: RISPERIDONE 2 MG ODT TAB SL SCH ×3 (08:01→20:46)
[2017-11-29] MEDS: ACETAMINOPHEN 325 MG TAB PO PRN (08:03)
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
[2017-11-29] MEDS: DOCUSATE SODIUM 100 MG CAP PO SCH ×2 (14:00→20:47)
[2017-11-29] MEDS: clonazePAM 1 MG TAB PO SCH (20:45)
[2017-11-29] MEDS: DOXEPIN HCL 10 MG CAP PO PRN (21:08)
[2017-11-29] MEDS: hydrOXYzine HCL 25 MG TAB PO PRN (21:34)
[2017-11-30] MEDS: NICOTINE POLACRILEX 2 MG GUM B PRN ×7 (08:29→19:24)
[2017-11-30] MEDS: NICOTINE 21 MG/24 HR PATCH TD SCH (08:29)
[2017-11-30] MEDS: ACETAMINOPHEN 325 MG TAB PO PRN ×2 (08:29→14:39)
[2017-11-30] MEDS: DOCUSATE SODIUM 100 MG CAP PO SCH ×2 (08:30→20:46)
[2017-11-30] MEDS: hydrOXYzine HCL 25 MG TAB PO PRN ×2 (08:41→20:48)
--- NOTE | 2017-11-30 10:40 | SOAPPROG ---
SOAP Progress Note Assessment/Plan: Assessment: Schizoaffective Disorder Bipolar Type Possible Sedative withdrawal History of PTSD Alcohol, Cannabis, and Sedative Use Disorders Patient continues to appear irritable, disorganized, tangential, paranoid without insight. Current hospitalization is 4th in 12 months, patient being evicted from father' s condo due to disruptive and disorganized behavior. Patient has elevated BP and appears flushed and now reports binging on 4-6mg/ day of Klonopin prior to admit along with using alcohol, patient is at high risk for sedative withdrawal. Plan: Await certification and court ordered medication hearing Continue Risperdal MTab 4mg QHS Increase Klonopin 1mg QAM and 2mg QHS, recheck BP in 2-3 hours Vitals TID Education about severe mental illness 11/30/17 10:39 Subjective: CC: "I wrote a book about Bipolar" Patient alternatively reports she was having manic symptoms then denies having manic symptoms prior to admission. Reports 'I always take my medications.' Admits to using alcohol and cannabis prior to admit. Admits to abusing Klonopin 4-6 mg prior to admit but was only prescribed a maximum of 3mg/day per PDMP. Reports she doesn't think she had a psychotic episode or paranoia or disorganized thinking prior to admit but unable to explain reasons for numerous written complaints from neighbors. Endorses feeling anxious and flushed but denies confusion, light/sound hypersensitivity, or insomnia. Alternatively reports she is willing to consent to Invega injections to facilitate discharge then reports she doesn't want to be court ordered for medication. Objective: Vital Signs Temp Pulse Resp BP Pulse Ox 36.5 C 125 H 18 156/79 H 93 11/30/17 08:00 11/30/17 09:51 11/30/17 09:51 11/30/17 09:51 11/30/17 09:51 Alert WF, tall. Flushed. Trace tremor. Speech RRR, loud at times. Thought tangential with flight of ideas. Denies SI or HI. Reports conspiracy involving [employer]ME[employer]A, preventive maintenance engineer, and stalkers to torment her. No insight. Impaired judgment. Staff report patient slept 9 hours. but on unit has been loud, intrusive, tangential and disorganized. - Time Spent With Patient Time Spent With Patient: 20 minutes - Pending Discharge Pending Discharge Within 24 Hours: No Pending Discharge Within 48 Hours: No ICD10 Worksheet Patient Problems: Problems Problem Status Onset Alcohol use disorder, moderate, in controlled environment Acute Cannabis use disorder, moderate, dependence Acute Posttraumatic stress disorder Acute Schizoaffective disorder, bipolar type Acute Sedative, hypnotic or anxiolytic use disorder, severe, dependence Acute
[2017-11-30] MEDS ORDERED: clonazePAM 1 MG TAB PO ONE (10:45)
[2017-11-30] MEDS: lamoTRIgine 25 MG TAB PO SCH (11:17)
[2017-11-30] MEDS: RISPERIDONE 2 MG ODT TAB SL SCH (20:46)
[2017-11-30] MEDS: clonazePAM 1 MG TAB PO SCH (20:46)
[2017-11-30] MEDS: DOXEPIN HCL 10 MG CAP PO PRN (21:46)
[2017-12-01] MEDS: ACETAMINOPHEN 325 MG TAB PO PRN (07:36)
[2017-12-01] MEDS: NICOTINE 21 MG/24 HR PATCH TD SCH (07:37)
[2017-12-01] MEDS: DOCUSATE SODIUM 100 MG CAP PO SCH ×2 (07:37→20:53)
[2017-12-01] MEDS: NICOTINE POLACRILEX 2 MG GUM B PRN ×9 (07:37→18:48)
[2017-12-01] MEDS: lamoTRIgine 25 MG TAB PO SCH (07:37)
[2017-12-01] MEDS: clonazePAM 1 MG TAB PO SCH ×2 (09:38→20:55)
--- NOTE | 2017-12-01 15:22 | SOAPPROG ---
SOAP Progress Note Assessment/Plan: Assessment: Per Dr. Guerrero's note: Per email from court ordered defense attorney, patient will stipulate for court ordered medications. Ordered Invega Sustenna 234mg for Sunday12/03/17 @ 1300. Patient will be monitored over weekend to clarify patient is compliant with HS Risperdal and not having EPS or other side effects. Original Note: SOAP Progress Note Assessment/Plan: Assessment: Schizoaffective Disorder Bipolar Type Possible Sedative withdrawal History of PTSD Alcohol, Cannabis, and Sedative Use Disorders Patient continues to appear irritable, disorganized, tangential, paranoid without insight. Current hospitalization is 4th in 12 months, patient being evicted from father' s condo due to disruptive and disorganized behavior. Patient has elevated BP and appears flushed and now reports binging on 4-6mg/ day of Klonopin prior to admit along with using alcohol, patient is at high risk for sedative withdrawal. Plan: Await certification and court ordered medication hearing Continue Risperdal MTab 4mg QHS Increase Klonopin 1mg QAM and 2mg QHS, recheck BP in 2-3 hours Vitals TID Education about severe mental illness Plan: 12/01/17 15:18 1. Patient is compliant with PO Risperdal. She agrees to take Invega Sustenna on 12/03/17. 2. No s/s of sedative w/d today. Patient denies any w/d sxs. 3. Patient slept 9 hrs last night, is less irritable today. Subjective: Met with patient, reviewed chart and d/w staff. Patient presents initially as irritable, but becomes more pleasant and cooperative as she recognizes MD from previous admission. She says this admission was "all a misunderstanding" and blames her FOC for making requesting a welfare check. She says she did "not stop taking my meds" and has continued to see her OP psych MD, Amanda Lopez the "whole time." She denies any SI/HI. Objective: Vital Signs Temp Pulse Resp BP Pulse Ox 36.6 C 100 16 121/80 H 96 12/01/17 08:51 12/01/17 08:51 12/01/17 08:51 12/01/17 08:51 12/01/17 08:51 MSE: Affect: Euthymic Mood: "Good" TP: Linear TC: No SI/HI Insight/Judgment : Improved - Time Spent With Patient Time Spent With Patient: 20" - Pending Discharge Pending Discharge Within 24 Hours: No Pending Discharge Within 48 Hours: No ICD10 Worksheet Patient Problems: Problems Problem Status Onset Alcohol use disorder, moderate, in controlled environment Acute Cannabis use disorder, moderate, dependence Acute Posttraumatic stress disorder Acute Schizoaffective disorder, bipolar type Acute Sedative, hypnotic or anxiolytic use disorder, severe, dependence Acute
[2017-12-01] MEDS: RISPERIDONE 2 MG ODT TAB SL SCH (20:57)
[2017-12-01] MEDS: DOXEPIN HCL 10 MG CAP PO PRN (21:03)
[2017-12-01] MEDS: hydrOXYzine HCL 25 MG TAB PO PRN (21:54)
[2017-12-02] MEDS: ACETAMINOPHEN 325 MG TAB PO PRN ×2 (06:50→11:35)
[2017-12-02] MEDS: NICOTINE 21 MG/24 HR PATCH TD SCH (06:50)
[2017-12-02] MEDS: NICOTINE POLACRILEX 2 MG GUM B PRN ×8 (06:53→17:28)
[2017-12-02] MEDS: DOCUSATE SODIUM 100 MG CAP PO SCH ×2 (07:08→21:01)
[2017-12-02] MEDS: lamoTRIgine 25 MG TAB PO SCH (07:08)
[2017-12-02] MEDS: clonazePAM 1 MG TAB PO SCH ×2 (08:58→21:00)
--- NOTE | 2017-12-02 13:10 | SOAPPROG ---
SOAP Progress Note Assessment/Plan: Assessment: Per Dr. Guerrero's note: Per email from court ordered family law attorney, patient will stipulate for court ordered medications. Ordered Invega Sustenna 234mg for Sunday12/03/17 @ 1300. Patient will be monitored over weekend to clarify patient is compliant with HS Risperdal and not having EPS or other side effects. Original Note: SOAP Progress Note Assessment/Plan: Assessment: Schizoaffective Disorder Bipolar Type Possible Sedative withdrawal History of PTSD Alcohol, Cannabis, and Sedative Use Disorders Patient continues to appear irritable, disorganized, tangential, paranoid without insight. Current hospitalization is 4th in 12 months, patient being evicted from father' s condo due to disruptive and disorganized behavior. Patient has elevated BP and appears flushed and now reports binging on 4-6mg/ day of Klonopin prior to admit along with using alcohol, patient is at high risk for sedative withdrawal. Plan: Await certification and court ordered medication hearing Continue Risperdal MTab 4mg QHS Increase Klonopin 1mg QAM and 2mg QHS, recheck BP in 2-3 hours Vitals TID Education about severe mental illness Plan: 12/01/17 15:18 1. Patient is compliant with PO Risperdal. She agrees to take Invega Sustenna on 12/03/17. 2. No s/s of sedative w/d today. Patient denies any w/d sxs. 3. Patient slept 9 hrs last night, is less irritable today. 12/02/17 13:07 1. Patient still frustrated she was admitted and has to be on "court order" to take meds. She insists "I was always taking my meds." However she says she's willing to "make the best of it" and has been exercising and in "good spirits" most of the weekend. 2. No changes to tx plan - expect Invega Sustenna IM on 12/03/17 3. No s/s of sedative w/d Subjective: Met with patient, reviewed chart and d/w staff. Patient was well-groomed and wearing clean clothes today. She had bright affect and was smiling. However, she still complains about her admission, blames her FOC, and insists she was "always taking my meds." She would like to be on higher dose of Lamictal, but explained this was a precaution to re-start at initial dose. She used exercise bike today and said she felt "better" afterward. Despite reports from staff that patient has been more social and even helping other patients, Karon says hospital is "fucking depressing." Objective: Vital Signs Temp Pulse Resp BP Pulse Ox 36.2 C 92 15 128/79 H 97 12/02/17 08:00 12/02/17 08:00 12/02/17 08:00 12/02/17 08:00 12/02/17 08:00 MSE: Affect: Bright, cheerful for most part Mood: "OK" TP: Linear TC: Denies any SI/HI, no psychotic sxs Insight/Judgment: Improved - Time Spent With Patient Time Spent With Patient: 20" - Pending Discharge Pending Discharge Within 24 Hours: No Pending Discharge Within 48 Hours: No ICD10 Worksheet Patient Problems: Problems Problem Status Onset Alcohol use disorder, moderate, in controlled environment Acute Cannabis use disorder, moderate, dependence Acute Posttraumatic stress disorder Acute Schizoaffective disorder, bipolar type Acute Sedative, hypnotic or anxiolytic use disorder, severe, dependence Acute
[2017-12-02] MEDS: DOXEPIN HCL 10 MG CAP PO PRN (21:00)
[2017-12-02] MEDS: hydrOXYzine HCL 25 MG TAB PO PRN (21:00)
[2017-12-02] MEDS: RISPERIDONE 2 MG ODT TAB SL SCH (21:01)
[2017-12-03] MEDS: ACETAMINOPHEN 325 MG TAB PO PRN ×2 (07:01→14:05)
[2017-12-03] MEDS: NICOTINE POLACRILEX 2 MG GUM B PRN ×7 (07:02→20:28)
[2017-12-03] MEDS: NICOTINE 21 MG/24 HR PATCH TD SCH (08:04)
[2017-12-03] MEDS: DOCUSATE SODIUM 100 MG CAP PO SCH ×2 (08:04→21:39)
[2017-12-03] MEDS: lamoTRIgine 25 MG TAB PO SCH (08:04)
[2017-12-03] MEDS: clonazePAM 1 MG TAB PO SCH ×2 (08:59→21:39)
[2017-12-03] MEDS ORDERED: clonazePAM 1 MG TAB PO SCH (11:15)
--- NOTE | 2017-12-03 11:19 | SOAPPROG ---
SOAP Progress Note Assessment/Plan: Assessment: Schizoaffective Disorder - Bipolar Type History of PTSD Alcohol, Cannabis, and Sedative Use Disorders Current hospitalization is 4th in 12 months, patient being evicted from father' s condo due to disruptive and disorganized behavior. Patient is somewhat more calm and organized but still briefly agitated/irritable , tangential, and grandiose without insight. Plan: Short Term Certification Per patients court appointed securities attorney email, patient will stipulate for court ordered medications Continue Risperdal MTab 4mg QHS Invega Sustenna 234mg IM today 12/03/17 (Dose #1) Invega Sustenna 178mg IM on Sunday12/10/17 planned (Dose #2) Reduce Klonopin 0.5mg QAM and 2mg QHS Continue Lamictal 25mg QAM Coordinate discharge planning with father Patient refusing Naltrexone for alcohol use disorder 12/03/17 11:19 Subjective: "This is all a bunch of lies" Patient reports she is willing to take Invega Sustenna injection but wants discharge. Reports "I only have bipolar disorder when the ER keeps me awake at night.' Denies paranoia then reports there is a conspiracy with stalkers and neighbors to evict her. Unable to explain how she would obtain food or fci if discharged since she is being evicted. Denies stiffness or sedation from medication. Unwilling to try Naltrexone for alcohol cravings "i have sponsered 50 women in , I don't need it' but admits to drinking alcohol and taking up to 4mg/day of Klonopin prior to admission. Objective: Vital Signs Temp Pulse Resp BP Pulse Ox 36.3 C 95 18 136/78 H 96 12/03/17 09:07 12/03/17 09:07 12/03/17 09:07 12/03/17 09:07 12/03/17 09:07 Alert WF, mildly agitated, brief yelling, less pressured than previous. No insight "I was only bipolar because they put me in the emergency room" "I am not psychotic I am working everything out with the police." Thoughts tangential with occasional loose association. Some grandiosity. Denies AH, SI, or HI. Questionable judgment. Staff report patient slept 8 hours. Patient attending some groups, intrusive loud and pressured at times, loud and dramatic at times, but cooperative with medications and redirectable and eating. - Time Spent With Patient Time Spent With Patient: 15 minutes - Pending Discharge Pending Discharge Within 24 Hours: No Pending Discharge Within 48 Hours: No ICD10 Worksheet Patient Problems: Problems Problem Status Onset Alcohol use disorder, moderate, in controlled environment Acute Cannabis use disorder, moderate, dependence Acute Posttraumatic stress disorder Acute Schizoaffective disorder, bipolar type Acute Sedative, hypnotic or anxiolytic use disorder, severe, dependence Acute
[2017-12-03] MEDS ORDERED: PALIPERIDONE PALMITATE 234 MG/1.5 ML SYR IM ONE (13:00)
[2017-12-03] MEDS: DOXEPIN HCL 10 MG CAP PO PRN (21:40)
[2017-12-03] MEDS: hydrOXYzine HCL 25 MG TAB PO PRN (21:40)
[2017-12-03] MEDS: RISPERIDONE 2 MG ODT TAB SL SCH (21:41)
[2017-12-04] MEDS: lamoTRIgine 25 MG TAB PO SCH (08:25)
[2017-12-04] MEDS: NICOTINE 21 MG/24 HR PATCH TD SCH (08:25)
[2017-12-04] MEDS: DOCUSATE SODIUM 100 MG CAP PO SCH ×2 (08:25→20:59)
[2017-12-04] MEDS: NICOTINE POLACRILEX 2 MG GUM B PRN ×9 (08:26→20:17)
--- NOTE | 2017-12-04 09:06 | SOAPPROG ---
SOAP Progress Note Assessment/Plan: Assessment: Schizoaffective Disorder - Bipolar Type History of PTSD Alcohol, Cannabis, and Sedative Use Disorders Current hospitalization is 4th in 12 months, patient being evicted from father' s condo due to disruptive and disorganized behavior. Patient has been cooperative with medication, some mild manic agitation and tangential thinking over past 24 hours. 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 Reports the police and her father will prevent her from being evicted. Makes rambling statements about stalkers, web developers, men squatting her condo, asbestos poisoning in her condo, and believing that she has bipolar disorder 'but I am definitely not psychotic I always take my medicine.' Reports wanting 50mg Lamictal, reports compliance with this medication prior to admit. Reports she doesn't think alcohol or cannabis abuse is a problem "I just enjoy a little bit every day" and insists that her book on bipolar disorder explains her behavior. Denies stiffness or tremor. Unable to explain why she got PRN Zydis last night. Later reports poor sleep. Objective: Vital Signs Temp Pulse Resp BP Pulse Ox 37.2 C 76 13 126/76 H 96 12/03/17 16:00 12/03/17 16:00 12/03/17 16:00 12/03/17 16:00 12/03/17 09:07 - Time Spent With Patient Time Spent With Patient: 25 minutes - Pending Discharge Pending Discharge Within 24 Hours: No Pending Discharge Within 48 Hours: No ICD10 Worksheet Patient Problems: Problems Problem Status Onset Alcohol use disorder, moderate, in controlled environment Acute Cannabis use disorder, moderate, dependence Acute Posttraumatic stress disorder Acute Schizoaffective disorder, bipolar type Acute Sedative, hypnotic or anxiolytic use disorder, severe, dependence Acute
[2017-12-04] MEDS ORDERED: clonazePAM 1 MG TAB PO PRN (13:08)
[2017-12-04] MEDS: RISPERIDONE 2 MG ODT TAB SL SCH (20:39)
[2017-12-04] MEDS: clonazePAM 1 MG TAB PO SCH (20:59)
[2017-12-04] MEDS: DOXEPIN HCL 10 MG CAP PO PRN (20:59)
[2017-12-04] MEDS: hydrOXYzine HCL 25 MG TAB PO PRN (20:59)
[2017-12-05] MEDS: NICOTINE POLACRILEX 2 MG GUM B PRN ×10 (07:39→20:39)
[2017-12-05] MEDS: ACETAMINOPHEN 325 MG TAB PO PRN (07:40)
[2017-12-05] MEDS: lamoTRIgine 25 MG TAB PO SCH (07:40)
[2017-12-05] MEDS: DOCUSATE SODIUM 100 MG CAP PO SCH ×2 (07:40→20:52)
[2017-12-05] MEDS: NICOTINE 21 MG/24 HR PATCH TD SCH (07:41)
[2017-12-05] MEDS: clonazePAM 0.5 MG TAB PO PRN (09:05)
--- NOTE | 2017-12-05 11:01 | SOAPPROG ---
SOAP Progress Note Assessment/Plan: Assessment: Schizoaffective Disorder - Bipolar Type History of PTSD Alcohol, Cannabis, and Sedative Use Disorders Current hospitalization is 4th in 12 months, patient being evicted from father' s condo due to disruptive and disorganized behavior. Patient has been cooperative with medication, attending groups and eating well, has some residual paranoid content. Plan: Short Term Certification Patient stipulated for court ordered medications (Haldol, Risperdal, Invega, Cogentin, Ativan, Clonazepam) Reduce Risperdal MTab 2mg QHS Invega Sustenna 234mg IM given on Sunday12/03/17 Plan Invega Sustenna 156mg IM on Sunday12/10/17 (Dose #2) Continue Klonopin 0.5mg PRN and 2mg QHS; has been taking 2-4mg daily for > year Continue Lamictal 50mg QAM Patient signed SHELLEY for referral to [facility] for follow up psychiatric treatment, weekly pillboxes from [facility] pharmacy Education about dangers of alcohol, cannabis, and benzodiazepines 12/05/17 11:01 Subjective: CC: "Annoyed that I'm here" Patient reports she is willing to take only 2mg Risperdal at bedtime and will cooperate with Invega Sustenna. Agrees to sign P SHELLEY after discussion that Dr. Lopez cannot provide case management services at her clinic and her clinic doesn't have a nurse to administer follow up injections. Reports sleeping well and feeling calm. Reports she plans to return to [facility] and if federal judge issues an eviction order based on [employer] petition she will move out and either live with a boyfriend or rent another apartment or motel room using her SS income or funding from her father. Denies violent thoughts toward anyone in her building or CARMELLA. Reports there is a conspiracy of male stalkers who are involved in [employer] who are colluding with her CARMELLA to have her evicted. Unable to explain who specifically these people are. Denies mood swings or agitation or racing thoughts. Objective: Vital Signs Temp Pulse Resp BP Pulse Ox 37.2 C 103 H 16 145/90 H 93 12/03/17 16:00 12/04/17 20:31 12/04/17 20:31 12/04/17 20:31 12/04/17 20:31 Alert tall WF, cooperative. Speech RRR, loud at times, pressured at times. Thoughts organized. Mood 'annoyed' affect briefly irritable. Some paranoid content regarding stalkers, web developers, and neighbors. Denies AH. Denies SI or HI or violent thoughts. Limited/poor insight. Judgment appropriate. Staff reports patient slept 9.5 hours attending most groups and eating regularly. - Time Spent With Patient Time Spent With Patient: 30 minutes - Pending Discharge Pending Discharge Within 24 Hours: No Pending Discharge Within 48 Hours: No ICD10 Worksheet Patient Problems: Problems Problem Status Onset Alcohol use disorder, moderate, in controlled environment Acute Cannabis use disorder, moderate, dependence Acute Posttraumatic stress disorder Acute Schizoaffective disorder, bipolar type Acute Sedative, hypnotic or anxiolytic use disorder, severe, dependence Acute
[2017-12-05] MEDS ORDERED: NICOTINE POLACRILEX 2 MG GUM B ONE (20:12)
[2017-12-05] MEDS: hydrOXYzine HCL 25 MG TAB PO PRN (20:52)
[2017-12-05] MEDS: clonazePAM 1 MG TAB PO SCH (20:52)
[2017-12-05] MEDS: DOXEPIN HCL 10 MG CAP PO PRN (20:59)
[2017-12-05] MEDS: RISPERIDONE 2 MG ODT TAB SL SCH (21:04)
[2017-12-06] MEDS: NICOTINE POLACRILEX 2 MG GUM B PRN ×8 (06:51→20:39)
[2017-12-06] MEDS: NICOTINE 21 MG/24 HR PATCH TD SCH (07:50)
[2017-12-06] MEDS: lamoTRIgine 25 MG TAB PO SCH (07:50)
[2017-12-06] MEDS: DOCUSATE SODIUM 100 MG CAP PO SCH ×2 (07:57→20:56)
[2017-12-06] MEDS: clonazePAM 0.5 MG TAB PO PRN (08:31)
[2017-12-06] MEDS: ACETAMINOPHEN 325 MG TAB PO PRN ×2 (08:31→20:39)
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
[2017-12-06] MEDS: clonazePAM 1 MG TAB PO SCH (20:56)
[2017-12-06] MEDS: DOXEPIN HCL 10 MG CAP PO PRN (20:56)
[2017-12-06] MEDS: hydrOXYzine HCL 25 MG TAB PO PRN (20:56)
[2017-12-06] MEDS: RISPERIDONE 2 MG ODT TAB SL SCH (20:57)
[2017-12-07] MEDS: NICOTINE POLACRILEX 2 MG GUM B PRN ×10 (07:03→20:14)
[2017-12-07] MEDS: ACETAMINOPHEN 325 MG TAB PO PRN (07:35)
[2017-12-07] MEDS: NICOTINE 21 MG/24 HR PATCH TD SCH (07:37)
[2017-12-07] MEDS: lamoTRIgine 25 MG TAB PO SCH (08:16)
--- NOTE | 2017-12-07 09:16 | SOAPPROG ---
SOAP Progress Note Assessment/Plan: Assessment: Schizoaffective Disorder - Bipolar Type History of PTSD Alcohol, Cannabis, and Sedative Use Disorders Current hospitalization is 4th in 12 months, patient being evicted from father' s condo due to disruptive and disorganized behavior. Patient has been cooperative with medication, attending groups and eating well, has some residual irritability and poor insight. Patient received first Invega Sustenna injection 234mg on 12/03/17 Plan: Short Term Certification Patient stipulated for court ordered medications (Haldol, Risperdal, Invega, Cogentin, Ativan, Clonazepam) Continue Risperdal MTab 2mg QHS Plan Invega Sustenna 156mg IM on Sunday12/10/17 (Dose #2) Continue Klonopin 0.5mg PRN and 2mg QHS; has been taking 2-4mg daily for > year Continue Lamictal 50mg QAM Education about medical and mental dangers of alcohol, cannabis, and benzodiazepines Reviewed risk of severe defects and miscarriage with psychiatric medications Reviewed risk of metabolic syndrome and tardive dyskinesia with antipsychotic medications Reviewed risk of life-threatening rash with Lamictal Patient signed SHELLEY for [facility] referral Plan discharge 12/10/17 after Invega injection; monitor impulse control and thought organization over weekend 12/07/17 09:20 Subjective: CC: "I'm fine" Patient reports sleeping well. Reports chronic lower back pain and takes PRN tylenol most mornings. Reports no plans for and would use condoms if sexually active. Denies stiffness or slowing or excessive sedation. Denies feeling irritable and agitated 'I only get that way when I'm manic.' Reports hypervigilance and fear of male strangers on a chronic basis. Denies fear of anyone in particular harming her. Denies AH. Reports her goal is to work with an erisa attorney to fight an eviction from her condo that she is renting from her father. Reports she will stay with friends and use her SS income for food/ long-term if evicted. Reports she is not interested in Naltrexone or residential substance abuse treatment. Reports she has 'thought about' quitting cannabis and 'might' quit after discharge. Reports no interest in residential MH programs after discharge. Objective: Vital Signs Temp Pulse Resp BP Pulse Ox 36.6 C 94 12 136/79 H 96 12/05/17 16:00 12/07/17 00:30 12/07/17 00:30 12/07/17 00:30 12/07/17 00:30 Alert tall WF. Cooperative and calm. Speech RRR, briefly rapid and loud at times. Thoughts organized. Denies SI or HI or AH or paranoia. Mood 'I'm fine ' Affect euthymic but irritable at times. Insight poor. Judgment questionable. Staff report patient eating and sleeping well and attending groups appropriately. Irritable with brief odd/paranoid statements at times. - Time Spent With Patient Time Spent With Patient: 30 minutes - Pending Discharge Pending Discharge Within 24 Hours: No Pending Discharge Within 48 Hours: No ICD10 Worksheet Patient Problems: Problems Problem Status Onset Alcohol use disorder, moderate, in controlled environment Acute Cannabis use disorder, moderate, dependence Acute Posttraumatic stress disorder Acute Schizoaffective disorder, bipolar type Acute Sedative, hypnotic or anxiolytic use disorder, severe, dependence Acute
[2017-12-07] MEDS: clonazePAM 0.5 MG TAB PO PRN (09:52)
[2017-12-07] MEDS: RISPERIDONE 2 MG ODT TAB SL SCH (21:17)
[2017-12-07] MEDS: DOCUSATE SODIUM 100 MG CAP PO SCH (21:18)
[2017-12-07] MEDS: clonazePAM 1 MG TAB PO SCH (21:18)
[2017-12-07] MEDS: DOXEPIN HCL 10 MG CAP PO PRN (21:28)
[2017-12-08] MEDS: NICOTINE POLACRILEX 2 MG GUM B PRN ×9 (06:51→21:10)
[2017-12-08] MEDS: lamoTRIgine 25 MG TAB PO SCH (08:19)
[2017-12-08] MEDS: NICOTINE 21 MG/24 HR PATCH TD SCH (08:19)
[2017-12-08] MEDS: MAG HYDROX/AL HYDROX/SIMETH 30 ML UDCUP PO PRN (09:19)
--- NOTE | 2017-12-08 12:27 | SOAPPROG ---
SOAP Progress Note Assessment/Plan: Assessment: Per Dr. Guerrero's note: Assessment: Schizoaffective Disorder - Bipolar Type History of PTSD Alcohol, Cannabis, and Sedative Use Disorders Current hospitalization is 4th in 12 months, patient being evicted from father' s condo due to disruptive and disorganized behavior. Patient has been cooperative with medication, attending groups and eating well, has some residual irritability and poor insight. Patient received first Invega Sustenna injection 234mg on 12/03/17 Plan: Short Term Certification Patient stipulated for court ordered medications (Haldol, Risperdal, Invega, Cogentin, Ativan, Clonazepam) Continue Risperdal MTab 2mg QHS Plan Invega Sustenna 156mg IM on Sunday12/10/17 (Dose #2) Continue Klonopin 0.5mg PRN and 2mg QHS; has been taking 2-4mg daily for > year Continue Lamictal 50mg QAM Education about medical and mental dangers of alcohol, cannabis, and benzodiazepines Reviewed risk of severe defects and miscarriage with psychiatric medications Reviewed risk of metabolic syndrome and tardive dyskinesia with antipsychotic medications Reviewed risk of life-threatening rash with Lamictal Patient signed SHELLEY for [facility] referral Plan discharge 12/10/17 after Invega injection; monitor impulse control and thought organization over weekend 12/08/17 12:23 1. Patient has no complaints, doing well. 2. No change to med regimen 3. Outpatient psychiatrist, Dr. Lopez, and therapist, Arie Rivas, came to visit patient on Sunday 4. Next Invega injection due on 12/10/17 5. Likely to d/c Sunday or Sunday Subjective: Met with patient, reviewed chart and d/w staff. Patient presents bright, cheerful. She says she is looking forward to discharge and plans to f/u with her regular outpatient providers. She has appt with Amanda Lopez on 12/18/17 at 10 :30 per patient. She says her outpatient therapist, Arie Rivas, is cutting back her caseload, but plans to keep patient in her practice. Patient feels she is doing better on 50mg of Lamictal. No s/s of andre, psychosis or depression. Denies any SI/HI. Objective: Vital Signs Temp Pulse Resp BP Pulse Ox 36.3 C 92 14 114/69 96 01/13/18 07:02 12/08/17 07:02 12/08/17 07:02 12/08/17 07:02 12/08/17 07:02 MSE: Affect: Bright Mood: "Good" TP: Linear, goal-directed TC: No SI/HI, no AH/VH, no RIS, no paranoia Insight/Judgment: Improved - Time Spent With Patient Time Spent With Patient: 20" - Pending Discharge Pending Discharge Within 24 Hours: No Pending Discharge Within 48 Hours: No ICD10 Worksheet Patient Problems: Problems Problem Status Onset Alcohol use disorder, moderate, in controlled environment Acute Cannabis use disorder, moderate, dependence Acute Posttraumatic stress disorder Acute Schizoaffective disorder, bipolar type Acute Sedative, hypnotic or anxiolytic use disorder, severe, dependence Acute
[2017-12-08 13:01] VITALS: RESP 16
[2017-12-08] MEDS ORDERED: NICOTINE POLACRILEX 2 MG GUM B ONE (16:06)
[2017-12-08] MEDS: clonazePAM 0.5 MG TAB PO PRN (19:30)
[2017-12-08] MEDS: IBUPROFEN 600 MG TAB PO PRN (20:13)
[2017-12-08] MEDS: DOXEPIN HCL 10 MG CAP PO PRN (21:09)
[2017-12-08] MEDS: clonazePAM 1 MG TAB PO SCH (21:10)
[2017-12-08] MEDS: hydrOXYzine HCL 25 MG TAB PO PRN (21:10)
[2017-12-08] MEDS: RISPERIDONE 2 MG ODT TAB SL SCH (21:10)
[2017-12-08] MEDS: DOCUSATE SODIUM 100 MG CAP PO SCH (21:19)
[2017-12-09] MEDS: NICOTINE POLACRILEX 2 MG GUM B PRN ×11 (06:55→20:36)
[2017-12-09] MEDS: IBUPROFEN 600 MG TAB PO PRN (07:21)
[2017-12-09] MEDS: NICOTINE 21 MG/24 HR PATCH TD SCH (08:03)
[2017-12-09] MEDS: lamoTRIgine 25 MG TAB PO SCH (08:04)
[2017-12-09] MEDS: MAG HYDROX/AL HYDROX/SIMETH 30 ML UDCUP PO PRN (09:02)
--- NOTE | 2017-12-09 12:37 | SOAPPROG ---
SOAP Progress Note Assessment/Plan: Assessment: Per Dr. Guerrero's note: Assessment: Schizoaffective Disorder - Bipolar Type History of PTSD Alcohol, Cannabis, and Sedative Use Disorders Current hospitalization is 4th in 12 months, patient being evicted from father' s condo due to disruptive and disorganized behavior. Patient has been cooperative with medication, attending groups and eating well, has some residual irritability and poor insight. Patient received first Invega Sustenna injection 234mg on 12/03/17 Plan: Short Term Certification Patient stipulated for court ordered medications (Haldol, Risperdal, Invega, Cogentin, Ativan, Clonazepam) Continue Risperdal MTab 2mg QHS Plan Invega Sustenna 156mg IM on Sunday12/10/17 (Dose #2) Continue Klonopin 0.5mg PRN and 2mg QHS; has been taking 2-4mg daily for > year Continue Lamictal 50mg QAM Education about medical and mental dangers of alcohol, cannabis, and benzodiazepines Reviewed risk of severe defects and miscarriage with psychiatric medications Reviewed risk of metabolic syndrome and tardive dyskinesia with antipsychotic medications Reviewed risk of life-threatening rash with Lamictal Patient signed SHELLEY for [facility] referral Plan discharge 12/10/17 after Invega injection; monitor impulse control and thought organization over weekend 12/08/17 12:23 1. Patient has no complaints, doing well. 2. No change to med regimen 3. Outpatient psychiatrist, Dr. Lopez, and therapist, Arie Rivas, came to visit patient on Sunday 4. Next Invega injection due on 12/10/17 5. Likely to d/c Sunday or Sunday12/09/17 12:33 1. Staff report patient was irritable this AM, but more pleasant when MD talked to her. 2. Patient does not want to go to residential treatment despite recommendation from her outpatient providers 3. Patient wants to go home despite likely eviction 4. Invega Sustenna 156mg IM on Sunday Subjective: Met with patient, reviewed chart and d/w staff. Staff report patient c/o back pain this AM and took Motrin which brought pain down from 5/10 to 2/10. Staff also report patient was irritable this AM, possibly d/t pain and feeling "pressured" to go to residential treatment by her outpatient providers. She met with Dr. Amanda Lopez, her psychiatrist, and Arie Rivas, her therapist, on the unit yesterday. They would like her to go to residential tx and get help for her alcohol dependence and mental illness. Patient does not agree with this plan. When MD met with patient, she was pleasant and upbeat. She was wearing a brightly colored tie-dyed hoody, and said, "I like bright colors, they make me feel good." She appeared in high spirits and was social and talkative with peers in group. Objective: Vital Signs Temp Pulse Resp BP Pulse Ox 36.3 C 108 H 16 143/86 H 96 12/08/17 07:02 12/08/17 08:00 12/08/17 08:00 12/08/17 08:00 12/08/17 08:00 MSE: Affect: Euthymic, irritable earlier in AM Mood: "Good" TP: Linear, goal- directed TC: Denies any SI/HI Insight/Judgment: Poor (a/e/b minimizing substance use disorder and refusing recommendation of outpatient providers) - Time Spent With Patient Time Spent With Patient: 20" - Pending Discharge Pending Discharge Within 24 Hours: No Pending Discharge Within 48 Hours: No ICD10 Worksheet Patient Problems: Problems Problem Status Onset Alcohol use disorder, moderate, in controlled environment Acute Cannabis use disorder, moderate, dependence Acute Posttraumatic stress disorder Acute Schizoaffective disorder, bipolar type Acute Sedative, hypnotic or anxiolytic use disorder, severe, dependence Acute
[2017-12-09] MEDS: clonazePAM 0.5 MG TAB PO PRN (13:07)
[2017-12-09] MEDS: clonazePAM 1 MG TAB PO SCH (20:49)
[2017-12-09] MEDS: RISPERIDONE 2 MG ODT TAB SL SCH (20:49)
[2017-12-09] MEDS: DOCUSATE SODIUM 100 MG CAP PO SCH (20:50)
[2017-12-09] MEDS: DOXEPIN HCL 10 MG CAP PO PRN (20:54)
[2017-12-09] MEDS: hydrOXYzine HCL 25 MG TAB PO PRN (21:25)
[2017-12-10] MEDS: NICOTINE POLACRILEX 2 MG GUM B PRN ×3 (05:44→10:05)
[2017-12-10 06:32] VITALS: BP 116/63; PULSE 90; TEMP 97.6; O2SAT 96
[2017-12-10] MEDS: IBUPROFEN 600 MG TAB PO PRN (06:55)
[2017-12-10] MEDS: NICOTINE 21 MG/24 HR PATCH TD SCH (08:25)
[2017-12-10] MEDS: lamoTRIgine 25 MG TAB PO SCH (08:58)
[2017-12-10] MEDS ORDERED: PALIPERIDONE PALMITATE 156 MG/ML SYR IM ONE (11:00)
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
== END 2017-12-10 11:15 | disposition home or self-care (01) | DRG 885 ==
LOC: EEVIPCON 19:47 → BBEH 11-28 03:17
PROVIDERS: ADMIT Psychiatry & Neurology Behavioral Neurology & Neuropsychiatry; ATTEND Psychiatry & Neurology Behavioral Neurology & Neuropsychiatry
DX: F31.2 Bipolar disorder, current episode manic severe with psychotic features (principal); F43.10 Post-traumatic stress disorder, unspecified; B07.0 Plantar wart; F12.90 Cannabis use, unspecified, uncomplicated; F10.10 Alcohol abuse, uncomplicated; F13.90 Sedative, hypnotic, or anxiolytic use, unspecified, uncomplicated; E66.3 Overweight; Z68.24 Body mass index [BMI] 24.0-24.9, adult; G89.29 Other chronic pain; F17.210 Nicotine dependence, cigarettes, uncomplicated
CPT/HCPCS: 80305; G0480; J2426

== ENCOUNTER 2019-03-01 18:35 | Emergency (ER) | payer OTHER, MEDICAID ==
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
[2019-03-01 19:31] LABS: PLATELET COUNT 251 10^3/uL (150-400)
[2019-03-01] MEDS ORDERED: NICOTINE POLACRILEX 2 MG GUM B PRN (20:24)
[2019-03-01] MEDS ORDERED: LORazepam 1 MG TAB PO ONE (21:32)
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
--- NOTE | 2019-03-01 23:01 | ASMTTCLDSP ---
TLC Discharge Disposition Disposition: Answers: Discharge Disposition Notes: Notes: In consultation with [facility] ED physician, Adam Kennedy MD, and on-call psychiatrist, Guevara Blank MD, both concurred that pt does not appear to meet 27-65 criteria requiring psychiatric hospitalization as pt does not appear to be an imminent risk of harm to self, others, or gravely disabled due to a mental illness condition. IF M1 VACATED: Dr. Guevara Blank MD provided telephone order read back vacating M1 hold at 22:45hrs. Discharge Concerns/Recommendations: Notes: Pt's boyfriend will check on her and agreed to help her follow up with her therepist. Was patient given the Answers: Not applicable Inpatient Behavioral Health Prohibited Belongings List while in the ED? Psychiatrist vacating M1 GUEVARA BLANK MD Hold: Date and time M1 hold 03/01/2019 11:00 PM vacated (time format is hh:mm): Type of Hold: Answers: M1/72-hour Hold Hold initiated by: Answers: Police Date Signed: 03/01/2019 11:00 PM Electronically Signed By:Sagar Mccord
[2019-03-01 23:34] VITALS: BP 125/78
== END 2019-03-01 23:00 | disposition home or self-care (01) ==
LOC: EDUNIT#
PROC: GZ11ZZZ Psychological Tests, Personality and Behavioral (ICD-10-PCS; principal; 2019-03-01)
DX: F31.9 Bipolar disorder, unspecified (principal); F17.200 Nicotine dependence, unspecified, uncomplicated
CPT/HCPCS: 80305; G0480